=== PATIENT | female | born 1970 | race African-American/Black ===

== ENCOUNTER 2019-01-25 20:57 | Inpatient (IN) | payer BC ==
[~2019-01-25] VITALS: Ht 157.5 cm; Wt 95.3 kg
--- OUTSIDE RECORDS SUMMARY | 2019-01-25 21:00 | XMS REPORT | Clinical Summary ---
Author Author JULIO C [facility] CenterSp[facility] FluidicsOrlando [facility] Address Unknown Phone Unavailable Care Team Providers Care Shuttle Threader Name Role Phone Eyad Hernandez MD PCP Allergies No Known Allergies Medications End Date Status Medication Sig Dispensed Refills Start Date Active amLODIPine (NORVASC) 10 Take 10 mg by 0 MG tablet mouth 2 (two) times daily . Active metoprolol (LOPRESSOR) Take 100 mg 0 100 MG tablet by mouth 2 (two) times daily. Active FOLIC ACID/VIT B COMPLEX Take 1 tablet 0 AND C (RENAL-BUDDY ORAL) by mouth daily . Active cinacalcet (SENSIPAR) 30 Take 30 mg by 0 MG tablet mouth daily. Active colchicine (COLCRYS) 0.6 Take 0.6 mg 0 mg tablet by mouth as needed . Active lanthanum (FOSRENOL) 1000 Take 1,000 mg 0 03/28/ MG chewable tablet by mouth 3 8 (three) times daily with meals . Active aspirin-caffeine (MINOO Take 1 tablet 0 BACK AND BODY) 500-32.5 by mouth as mg TabIndications: Mild needed. Arthritic Pain, Pain 04/11/2018 Discontinued levoFLOXacin (LEVAQUIN) Take 1 tablet 7 tablet 0 500 MG tablet (500 mg 8 total) by mouth daily for 7 days. 04/23/2018 ciprofloxacin HCl (CIPRO) Take 0.5 12 tablet 0 500 MG tablet tablets (250 8 mg total) by mouth 2 (two) times daily for 12 days. Active Problems Problem Noted Date Fever 04/06/2018 Acute renal failure, unspecified acute renal failure type 11/24/2017 Shortness of breath 07/28/2017 Renal insufficiency 07/28/2017 Encounters Care Team Description Date Type Specialty Delmis Lockwood RN 08/08/2018 Documentation Transplant Beba Newell Follow-up 06/08/2018 Telephone Transplant Beba Newell Follow-up 05/08/2018 Telephone Transplant Palak Reeves MD Dave, Deepa Chetan, MD Fever, unspecified fever cause (Primary Dx); ESRD (end stage renal disease) on dialysis (HCC); Leukocytosis, unspecified type; Tachycardia 04/06/2018 [facility] General Internal Medicine - Encounter 04/11/2018 Beba Newell Appointment 03/17/2018 Telephone Transplant Delmis Lockwood RN ESRD (end stage renal disease) (HCC) (Primary Dx); Pre-transplant evaluation for end stage renal disease; Pre-operative cardiovascular examination 03/13/2018 Orders Only Transplant Ya Sparks II, MD 03/08/2018 Outside Orders Central Scheduling Delmis Lockwood RN ESRD (end stage renal disease) (HCC) (Primary Dx); Pre-transplant evaluation for end stage renal disease 01/25/2018 Orders Only Transplant Ya Sparks II, MD ESRD (end stage renal disease) (HCC); Pre-transplant evaluation for end stage renal disease; Essential hypertension, malignant; Anemia of chronic renal failure, unspecified CKD stage; Abnormal blood chemistry; Pre-operative cardiovascular examination; Atherosclerosis of [place] coronary artery of [place] heart without angina pectoris; Impending cerebrovascular accident (HCC) 01/24/2018 Hospital Radiology Encounter Ya Sparks II, MD ESRD (end stage renal disease) (HCC); Pre-transplant evaluation for end stage renal disease; Essential hypertension, malignant; Anemia of chronic renal failure, unspecified CKD stage; Abnormal blood chemistry; Pre-operative cardiovascular examination; Atherosclerosis of [place] coronary artery of [place] heart without angina pectoris; Impending cerebrovascular accident (HCC) 01/24/2018 Hospital Cardiology Encounter Ya Sparks II, MD Finch, Jennifer L., MD Pre-transplant evaluation for end stage renal disease (Primary Dx) 01/24/2018 Evaluation Transplant Ya Sparks II, MD ESRD (end stage renal disease) (HCC); Pre-transplant evaluation for end stage renal disease; Essential hypertension, malignant; Anemia of chronic renal failure, unspecified CKD stage; Abnormal blood chemistry; Pre-operative cardiovascular examination; Atherosclerosis of [place] coronary artery of [place] heart without angina pectoris; Impending cerebrovascular accident (HCC) 01/24/2018 Orders Only Transplant Hepatology Ya Sparks II, MD Vado, Yubelka, RN ESRD (end stage renal disease) (HCC) (Primary Dx); Pre-transplant evaluation for end stage renal disease; Essential hypertension, malignant; Anemia of chronic renal failure, unspecified CKD stage; Abnormal blood chemistry; Pre-operative cardiovascular examination; Atherosclerosis of [place] coronary artery of [place] heart without angina pectoris; Impending cerebrovascular accident (HCC) 01/24/2018 Office Visit Transplant Jonny Cid RN ESRD (end stage renal disease) (HCC) (Primary Dx) 01/24/2018 Orders Only Transplant 01/24/2018 Orders Only General Internal Medicine after 01/24/2018 Family History Medical History Relation Name Comments No Known Problem Father Diabetes Mother Unremarkable Sister Relation Name Status Comments Father Alive Mother Alive Sister Alive Social History Date Tobacco Use Types Packs/Day Years Used Never Smoker Smokeless Tobacco: Never Used Alcohol Use Drinks/Week oz/Week Comments Yes 1 Glasses of 0.6 Occasionally wine Sex Assigned at Date Recorded Not on file Industry Job Start Date Occupation Not on file Not on file Not on file Travel End Travel History Travel Start No recent travel history available. Last Filed Vital Signs Time Taken Vital Sign Reading 04/11/2018 12:00 PM CDT Blood Pressure 138/73 04/11/2018 12:00 PM CDT Pulse 86 04/11/2018 12:00 PM CDT Temperature 37.4 C (99.4 F) 04/11/2018 12:00 PM CDT Respiratory Rate 18 04/11/2018 12:00 PM CDT Oxygen Saturation 95% - Inhaled Oxygen - Concentration 04/06/2018 3:51 PM CDT Weight 79.8 kg (176 lb) 04/06/2018 7:40 PM CDT Height 158.8 cm (5' 2.5") 04/06/2018 3:51 PM CDT Body Mass Index 31.68 Plan of Treatment Not on file Procedures Comments Procedure Name Priority Date/Time Associated Diagnosis CARDIAC CATH REPORT - 04/12/2018 SCAN 1:22 PM CDT CATHETER TIP CULTURE Routine 04/10/2018 2:21 PM CDT IR TUNNELED CATHETER Routine 04/10/2018 REMOVAL 2:05 PM CDT HEPATITIS B SURFACE Routine 04/10/2018 ANTIBODY 8:43 AM CDT HEMODIALYSIS INPATIENT Routine 04/09/2018 8:04 AM CDT BLOOD CULTURE Routine 04/08/2018 12:18 PM CDT (MANUAL DIFFERENTIAL) Routine 04/08/2018 10:13 AM CDT CBC W/PLT COUNT & AUTO Routine 04/08/2018 DIFFERENTIAL 10:13 AM CDT BASIC METABOLIC PANEL (7) Routine 04/08/2018 10:13 AM CDT CBC W/PLT COUNT & AUTO Routine 04/08/2018 DIFFERENTIAL 10:13 AM CDT BLOOD CULTURE Routine 04/08/2018 9:07 AM CDT HEMODIALYSIS INPATIENT DONAVAN 04/08/2018 7:24 AM CDT HEPATITIS B SURFACE Routine 04/07/2018 ANTIGEN 3:40 PM CDT HEMODIALYSIS INPATIENT DONAVAN 04/07/2018 7:13 AM CDT CBC W/PLT COUNT & AUTO STAT 04/07/2018 DIFFERENTIAL 3:56 AM CDT CBC W/PLT COUNT & AUTO STAT 04/07/2018 DIFFERENTIAL 3:56 AM CDT LIPID PANEL STAT 04/07/2018 3:56 AM CDT HEMOGLOBIN A1C STAT 04/07/2018 3:56 AM CDT BASIC METABOLIC PANEL (7) STAT 04/07/2018 3:56 AM CDT CRITICAL CARE Routine 04/06/2018 7:19 PM CDT BLOOD CULTURE STAT 04/06/2018 4:36 PM CDT XR CHEST 1 VIEW STAT 04/06/2018 PORTABLE/BEDSIDE 4:23 PM CDT PROTHROMBIN TIME/INR STAT 04/06/2018 4:11 PM CDT URINALYSIS W/ MICROSCOPIC STAT 04/06/2018 4:11 PM CDT BLOOD CULTURE STAT 04/06/2018 4:11 PM CDT CBC W/PLT COUNT & AUTO STAT 04/06/2018 DIFFERENTIAL 4:10 PM CDT PHOSPHORUS STAT 04/06/2018 4:10 PM CDT MAGNESIUM STAT 04/06/2018 4:10 PM CDT LIPASE STAT 04/06/2018 4:10 PM CDT CBC W/PLT COUNT & AUTO STAT 04/06/2018 DIFFERENTIAL 4:10 PM CDT COMPREHENSIVE METABOLIC STAT 04/06/2018 PANEL 4:10 PM CDT LACTIC ACID, VENOUS STAT 04/06/2018 4:10 PM CDT TRANSFUSION SERVICE 01/25/2018 REPORT - SCAN 5:44 PM CDT XR CHEST 2 VIEWS Routine 01/24/2018 ESRD (end stage renal 12:20 PM CDT disease) ([facility]) ECG 12-LEAD Routine 01/24/2018 11:35 AM CDT Procedure Note - Interface, External Ris In - 01/24/2018 11:39 AM CDT Ventricula r Rate 71 BPM Atrial Rate 71 BPM P-R Interval 142 ms QRS Duration 80 ms Q-T Interval 446 ms QTC Calculatio n(Bazett) 484 ms P [place] 52 degrees R [place] 56 degrees T [place] 62 degrees Normal sinus rhythm Prolonged QT Abnormal ECG No previous ECGs available ECG 12-LEAD Routine 01/24/2018 ESRD (end stage renal 11:35 AM CDT disease) ([facility]) Pre-transplant evaluation for end stage renal disease Essential hypertension, malignant Anemia of chronic renal failure, unspecified CKD stage Abnormal blood chemistry Pre-operative cardiovascular examination Atherosclerosis of [place] coronary artery of [place] heart without angina pectoris Impending cerebrovascular accident (HCC) TYPE AND SCREEN, Routine 01/24/2018 ESRD (end stage renal AUTOMATED 10:20 AM CDT disease) (HCC) Pre-transplant evaluation for end stage renal disease Essential hypertension, malignant Anemia of chronic renal failure, unspecified CKD stage Abnormal blood chemistry Pre-operative cardiovascular examination Atherosclerosis of [place] coronary artery of [place] heart without angina pectoris Impending cerebrovascular accident (HCC) after 01/24/2018 Results * CARDIAC CATH REPORT - SCAN (04/12/2018 1:22 PM CDT) Narrative Performed At * Catheter Tip Culture (04/10/2018 2:21 PM CDT) Result [facility] (A) [facility] Specimen Other Antibiotic Method Susceptibility Organism Cefepime <=1: Susceptible Pseudomonas aeruginosa Gentamicin <=1: Susceptible Pseudomonas aeruginosa Levofloxacin 0.5: Susceptible Pseudomonas aeruginosa Meropenem 0.5: Susceptible Pseudomonas aeruginosa Piperacillin + Tazobactam <=4: Susceptible Pseudomonas aeruginosa Tobramycin <=1: Susceptible Pseudomonas aeruginosa Performing Organization Address City/State/Zipcode Phone Number [facility] [address] [place], [place] [phone] * IR Tunneled Catheter Removal (04/10/2018 2:05 PM CDT) Specimen Narrative Performed At FINAL REPORT RIS History: End-stage renal disease, possibly infected catheter Procedure: Following informed written consent, the patient's existing tunnel dialysis catheter and surrounding skin site were prepped and draped in the usual sterile manner. 2% lidocaine was given locally for anesthesia. No conscious sedation was administered.The catheter cuff was bluntly dissected from the subcutaneous tunnel and the catheter was removed without complications. The tip was sent for culture. Impression: 1. Successful uncomplicated removal of the patient's tunneled right-sided dialysis catheter. Signed: Herman Sen MD Report Verified Date/Time:04/10/2018 15:28:49 Reading Location: [facility] Radiology Reading Room Procedure Note Interface, External Ris In - 04/10/2018 3:31 PM CDT FINAL REPORT History: End-stage renal disease, possibly infected catheter Procedure: Following informed written consent, the patient's existing tunnel dialysis catheter and surrounding skin site were prepped and draped in the usual sterile manner. 2% lidocaine was given locally for anesthesia. No conscious sedation was administered.The catheter cuff was bluntly dissected from the subcutaneous tunnel and the catheter was removed without complications. The tip was sent for culture. Impression: 1. Successful uncomplicated removal of the patient's tunneled right-sided dialysis catheter. Signed: Herman Sen MD Report Verified Date/Time: 04/10/2018 15:28:49 Reading Location: [facility] Radiology Reading Room Performing Organization Address City/State/Zipcode Phone Number [facility] * Hepatitis B surface antibody (04/10/2018 8:43 AM CDT) Hep B S Ab <8.0 <8.0 mIU/mL [facility] Specimen Blood Performing Organization Address City/[facility]/Zipcode Phone Number [place] [phone] [place] [address] [phone] [place] [address] * Blood culture (04/08/2018 12:18 PM CDT) Only the most recent of 4 results within the time period is included. Result No growth in 5 days [facility] Specimen Blood Performing Organization Address City/[facility]/Zipcode Phone Number [facility] [address] [place], [place] [address] * Manual Differential (04/08/2018 10:13 AM CDT) % Neutros (manual) 83 % [facility] % Lymphs (manual) 10 % [facility] % Monos (manual) 6 % [facility] % Eos (manual) 1 % [facility] # Neutros (manual) 7.64 1.80 - 8.00 K/L [facility] # Lymphs (manual) 0.92 (L) 1.48 - 4.50 K/L [facility] # Monos (manual) 0.55 0.00 - 1.30 K/L [facility] # Eos (manual) 0.09 0.00 - 0.50 K/L [facility] Total Counted 100 [facility] Vacuolated Neutrophils Present [facility] Large Platelet Present [facility] Anisocytosis 1+ few [facility] Specimen Blood Performing Organization Address City/[facility]/Zipcode Phone Number [facility] [address] [place], [place] [phone] * CBC with platelet count + automated diff (04/08/2018 10:13 AM CDT) Only the most recent of 3 results within the time period is included. WBC 9.2 4.0 - 10.0 K/L [facility] RBC 3.33 (L) 4.00 - 5.00 M/L [facility] Hemoglobin 9.5 (L) 12.0 - 15.0 GM/DL [facility] Hematocrit 28.5 (L) 36.0 - 45.0 % [facility] MCV 85.6 82.0 - 99.0 fL [facility] MCH 28.4 27.0 - 33.0 pg [facility] MCHC 33.1 32.0 - 36.0 GM/DL [facility] RDW 18.6 (H) 10.3 - 14.2 % [facility] Platelets 191 150 - 430 K/CU MM [facility] MPV 9.2 6.5 - 10.5 fL [facility] nRBC 0 0 - 0 /100 WBC [facility] Specimen Blood Performing Organization Address City/[facility]/Zipcode Phone Number [facility] [address] [place], [place] [phone] * Basic Metabolic Panel (04/08/2018 10:13 AM CDT) Only the most recent of 2 results within the time period is included. Sodium 134 (L) 135 - 148 meq/L [facility] Potassium 4.6 3.6 - 5.5 meq/L [facility] Chloride 97 (L) 98 - 106 meq/L [facility] CO2 22 20 - 29 meq/L [facility] BUN 39 (H) 10 - 26 mg/dL [facility] Creatinine 8.47 (H) 0.50 - 1.20 mg/dL [facility] Glucose 82 70 - 110 mg/dL [facility] Calcium 8.9 8.5 - 10.5 mg/dL [facility] EGFR 6Comment: ESTIMATED GFR IS NOT mL/min/1.73 sq m [facility] CLEARANCE IN PREDICTING GLOMERULAR FILTRATION RATE. ESTIMATED GFR IS NOT APPLICABLE FOR DIALYSIS PATIENTS. Specimen Blood Performing Organization Address [facility] Hospital[facility] Phone Number [facility] [address] [place] [phone] * Hepatitis B surface antigen (04/07/2018 3:40 PM CDT) hepatitis B Surface Ag NON-REACTIVE Nonreactive [facility] Specimen Blood Performing Organization Address [facility] Phone Number [facility] [address] [place] [phone] * Hemoglobin A1c (04/07/2018 3:56 AM CDT) Hemoglobin A1C 5.2 4.3 - 6.1 % [facility] Specimen Blood Performing Organization Address [facility] Phone Number [facility] [address] [place] [phone] * Lipid panel (04/07/2018 3:56 AM CDT) Triglycerides 124 mg/dL [facility] Cholesterol 163 mg/dL [facility] HDL 40 mg/dL [facility] LDL Calculated 98 mg/dL [facility] Specimen Blood Narrative Performed At Triglyceride Reference Range: [facility] [place] Low Risk <150 [facility] [id number] High Risk 200-499 Very High Risk>=500 Cholesterol Reference Range: Low Risk <200 [id number] High Risk>240 HDL Cholesterol Reference Range: Low Risk >=60 High Risk <40 LDL Cholesterol Reference Range: Optimal<100 Near [id number] Very High >=190 Performing Organization Address [facility] Phone Number [facility] [address] [place] [address] * CRITICAL CARE (04/06/2018 7:19 PM CDT) Narrative Performed At Palak Reeves MD 04/06/20187:19 PM Critical Care Performed by: PALAK REEVES Authorized by: PALAK REEVES Total critical care time: 30 minutes Critical care was necessary to treat or prevent imminent or life-threatening deterioration of the following conditions: sepsis. Critical care was time spent personally by me on the following activities: blood draw for specimens, development of treatment plan with patient or surrogate, discussions with consultants, discussions with primary provider, interpretation of cardiac output measurements, evaluation of patient's response to treatment, examination of patient, obtaining history from patient or surrogate, ordering and performing treatments and interventions, ordering and review of laboratory studies, ordering and review of radiographic studies and re-evaluation of patient's condition. Subsequent provider of critical care: I assumed direction of critical care for this patient from another provider of my specialty. * XR chest 1 view portable / bedside (04/06/2018 4:23 PM CDT) Specimen Narrative Performed At FINAL REPORT [facility] TECHNIQUE: Frontal chest radiograph dated 04/06/2018. CLINICAL HISTORY: Back pain , fever COMPARISON STUDY: Chest radiograph dated 01/24/2018 IMPRESSION: Right-sided vascular line is unchanged. Lungs are clear. No pleural effusion or pneumothorax. Cardiomediastinal silhouette is normal in size. No pulmonary edema. No fracture. Signed: Silvana Sanchez MD Report Verified Date/Time:04/06/2018 16:31:49 Reading Location: [facility] Radiology Reading Room Procedure Note Interface, External Ris In - 04/06/2018 4:34 PM CDT FINAL REPORT TECHNIQUE: Frontal chest radiograph dated 04/06/2018. CLINICAL HISTORY: Back pain , fever COMPARISON STUDY: Chest radiograph dated 01/24/2018 IMPRESSION: Right-sided vascular line is unchanged. Lungs are clear. No pleural effusion or pneumothorax. Cardiomediastinal silhouette is normal in size. No pulmonary edema. No fracture. Signed: Silvana Sanchez MD Report Verified Date/Time: 04/06/2018 16:31:49 Reading Location: [facility] Radiology Reading Room Performing Organization Address City/State/Zipcode Phone Number [email or web address] * Urinalysis w/Microscopic (04/06/2018 4:11 PM CDT) Color, UA Yellow [facility] Clarity, UA Clear [facility] Specific Shelley, UA 1.015 1.001 - 1.035 [facility] pH, UA 8.0 5.0 - 8.0 [facility] Protein, UA 100 mg/dL (A) Negative [facility] Glucose, UA 100 mg/dL (A) Negative [facility] Ketones, UA Negative Negative [facility] Bilirubin, UA Negative Negative [facility] Blood, UA Small (A) Negative [facility] Nitrite, UA Negative Negative [facility] Leukocytes, UA Negative Negative [facility] Urobilinogen, UA 0.2 0.2 - 1.0 mg/dL [facility] Bacteria, UA Few [facility] RBC, UA <5 /HPF [facility] WBC, UA <5 /HPF [facility] SQUAMOUS EPITHELIAL <5 /HPF [facility] Specimen Source [facility] Specimen Urine Performing Organization Address [facility] Phone Number [facility] [address] [place], [place] [phone] * Prothrombin time/INR (04/06/2018 4:11 PM CDT) Protime 11.4 9.3 - 12.0 sec [facility] INR 1.1 <=5.9 [facility] Specimen Blood Narrative Performed At RECOMMENDED COUMADIN/WARFARIN INR THERAPY RANGES [facility] STANDARD DOSE: 2.0 - 3.0 Includes: PROPHYLAXIS for venous thrombosis, LABORATORY systemic embolization; TREATMENT for venous thrombosis and/or pulmonary embolus. HIGH RISK: Target INR is 2.5-3.5 for patients with mechanical heart valves. Final Information (Auto Output) Final Information (Auto Output) Performing Organization Address [facility] Phone Number [address] [address] * Lactic acid, venous, whole blood (04/06/2018 4:10 PM CDT) Lactate, Venous 1.2Comment: Specimen slightly 0.5 - 2.2 mmol/L [facility] Specimen Blood Narrative Performed At Effective 01/28/2016: Units/Reference Range Change [facility] New: 0.5-2.2 mmol/LPrevious: 5-18 mg/dL LABORATORY Performing Organization Address [facility] Phone Number [facility] [address] [place], [place] [address] * Phosphorus (04/06/2018 4:10 PM CDT) Phosphorus 3.9Comment: Specimen slightly 2.5 - 4.5 mg/dL [facility] Specimen Blood Performing Organization Address [facility] Phone Number [facility] [address] [place], [place] [phone] * Magnesium (04/06/2018 4:10 PM CDT) Magnesium 2.1Comment: Specimen slightly 1.5 - 3.0 mg/dL [facility] Specimen Blood Performing Organization Address City/[facility]/Zipcode Phone Number [facility] [address] [place] [phone] * Lipase (04/06/2018 4:10 PM CDT) Lipase 15 6 - 51 U/L [facility] Specimen Blood Performing Organization Address City/[facility] Phone Number [facility] [address] [place] [phone] * Comprehensive metabolic panel (04/06/2018 4:10 PM CDT) Protein, Total 9.3 (H)Comment: Specimen 6.0 - 8.5 gm/dL [facility] Albumin 3.9Comment: Specimen slightly 3.5 - 5.0 g/dL [facility] Alkaline Phosphatase 58 30 - 115 U/L [facility] Total Bilirubin 0.3Comment: Specimen slightly 0.1 - 1.2 mg/dL [facility] Sodium 132 (L) 135 - 148 meq/L [facility] Potassium 5.4Comment: Specimen slightly 3.6 - 5.5 meq/L [facility] Chloride 92 (L) 98 - 106 meq/L [facility] CO2 21 20 - 29 meq/L [facility] BUN 35 (H) 10 - 26 mg/dL [facility] Creatinine 9.03 (H)Comment: Specimen 0.50 - 1.20 mg/dL [facility] Glucose 95 70 - 110 mg/dL [facility] Calcium 9.0 8.5 - 10.5 mg/dL [facility] AST 24Comment: Specimen slightly 5 - 40 U/L [facility] ALT 20Comment: Specimen slightly 5 - 50 U/L [facility] EGFR 6Comment: ESTIMATED GFR IS NOT mL/min/1.73 sq m [facility]ATIN[facility] CLEARANCE IN PREDICTING GLOMERULAR FILTRATION RATE. ESTIMATED GFR IS NOT APPLICABLE FOR DIALYSIS PATIENTS. Specimen Blood Performing Organization Address City/State/Zipcode Phone Number [facility] [address] [place] [address] * TRANSFUSION SERVICE REPORT - SCAN (01/25/2018 5:44 PM CDT) Narrative Performed At * XR chest 2 views (01/24/2018 12:20 PM CDT) Specimen Narrative Performed At FINAL REPORT [facility] Two views chest Discussion: Right dialysis catheter in place lower SVC level. Lungs clear. Heart size normal. No effusion or pneumothorax. Signed: Dai Donald MD Report Verified Date/Time:01/24/2018 12:57:23 Reading Location: [facility] Radiology Reading Room Procedure Note Interface, External Ris In - 01/24/2018 12:59 PM CDT FINAL REPORT Two views chest Discussion: Right dialysis catheter in place lower SVC level. Lungs clear. Heart size normal. No effusion or pneumothorax. Signed: Dai Donald MD Report Verified Date/Time: 01/24/2018 12:57:23 Reading Location: [facility] Radiology Reading Room Performing Organization Address City/[facility] [facility] Number [facility] * ECG 12 lead (01/24/2018 11:35 AM CDT) Specimen Narrative Performed At Ventricular Rate 71 BPM GE MUSE Atrial Rate 71 BPM P-R Interval 142 ms QRS Duration 80 ms Q-T Interval 446 ms QTC Calculation(Bazett) 484 ms P [place] 52 degrees R [place] 56 degrees T [place] 62 degrees Normal sinus rhythm Prolonged QT Abnormal ECG No previous ECGs available Confirmed by MD Jennifer, Jimmy ([id number]) on 01/24/2018 2:40:19 PM Procedure Note Interface, External Ris In - 01/24/2018 2:40 PM CDT Ventricular Rate 71 BPM Atrial Rate 71 BPM P-R Interval 142 ms QRS Duration 80 ms Q-T Interval 446 ms QTC Calculation(Bazett) 484 ms P [place] 52 degrees R [place] 56 degrees T [place] 62 degrees Normal sinus rhythm Prolonged QT Abnormal ECG No previous ECGs available Confirmed by MD Rodriguez Roberto ([id number]) on 01/24/2018 2:40:19 PM Performing Organization Address City/State/Zipcode Phone Number GE LASHELL * Type and Screen, Automated (01/24/2018 10:20 AM CDT) ABO/RH AUTOMATED (BEAKER) O POSITIVE [facility] Ab Scrn NEGATIVE [facility] Specimen Blood Performing Organization Address City/State/Zipcode Phone Number [facility] [address] [place] [address] MEDICAL CENTER after 01/24/2018 Insurance Payer Benefit Subscriber ID Type Phone Address Plan / Group BLUE [employer]UE [employer] BCBS OS xxxxxxxxxxxxxxx PPO [phone] [address] [place]/PP[place] [address] O Advance Directives For more information, please contact: [facility] [address] [place] [address] Date Inactivated Comments Code Status Date Activated 04/11/2018 4:21 PM Full Code 04/06/2018 7:53 PM This code status was determined by: Patient 04/06/2018 7:53 PM Full Code 04/06/2018 4:07 PM This code status was determined by: Patient 11/30/2017 3:55 PM Full Code 11/24/2017 4:24 PM This code status was determined by: Patient 07/31/2017 9:37 PM Full Code 07/28/2017 9:41 PM This code status was determined by: Patient
--- OUTSIDE RECORDS SUMMARY | 2019-01-25 21:00 | XMS REPORT | Summary of Care ---
Author Author [facility] Organization [facility] Address Unknown Phone Unavailable Encounter ELISE Marquez(TOMMY) [id number] Date(s): 12/27/17 - 12/27/17 [facility] [address] [place] [address]- Encounter Diagnosis Hypertensive chronic kidney disease with stage 5 chronic kidney disease or end s tage renal disease (Final) - 01/03/18 End stage renal disease (Final) - Anemia in chronic kidney disease (Final) - Supraventricular tachycardia (Final) - Dependence on renal dialysis (Final) - Hyperlipidemia, unspecified (Final) - Discharge Disposition: Home or Self Care Attending Physician: Josemanuel Long MD Referring Physician: Josemanuel Long MD Vital Signs 1 2 3 Most recent to oldest [Reference Range]: 160.02 cm (12/26/17 9:18 AM) Height 97.8 DegF (12/27/17 7:00 AM) Temperature Oral [96.4-99.1 DegF] 120/78 mmHg (12/27/17 1:00 PM) 104/67 mmHg (12/27/17 12:45 PM) 119/73 mmHg (12/27/17 12:30 PM) Blood Pressure [90-140/60-90 mmHg] 14 BRMIN (12/27/17 1:00 PM) 16 BRMIN (12/27/17 12:45 PM) 14 BRMIN (12/27/17 12:30 PM) Respiratory Rate [14-20 BRMIN] 77.727 kg (12/26/17 9:18 AM) Weight 30.35 m2 (12/26/17 9:18 AM) Body Mass Index Problem List No data available for this section Allergies, Adverse Reactions, Alerts Substance Reaction Severity Status NKFA Active NKDA Active Medications acetaminophen-codeine #3 2 tab, Route: PO, Drug Form: TAB, Dosing Weight 77.727, kg, Q4H, PRN Pain Score 4-6, Start date: 12/27/17 8:22:00 CDT, Duration: 30 day, Stop date: 01/26/18 8:2 1:00 CDT Notes: Do not exceed 4gm/day of acetaminophen. (Same as: Tylenol with Codeine # 3) Start Date: 12/27/17 Stop Date: 12/27/17 Status: Discontinued amLODIPine 10 mg oral tablet 10 mg=1 tab, PO, BID Start Date: 12/26/17 Status: Ordered ANES acetaminophen 1,000 mg, 100 mL, Route: IV, Drug form: INJ, ONCE, Dosing Weight 77.727, kg, PRN Pain Score 1-3, Start date: 12/27/17 9:50:00 CDT Notes: Infuse over 15 minutesDo not exceed 4gm/day of acetaminophen MEDICAT ION WASTE Product Size: 1000 mgProduct Wasted: ___ mg Start Date: 12/27/17 Stop Date: 12/27/17 Status: Completed ANES dexamethasone 4 mg, 1 mL, Route: IVP, Drug form: INJ, ONCE, Dosing Weight 77.727, kg, PRN Naus ea & Vomiting, Start date: 12/27/17 9:50:00 CDT Notes: Concentration: 4mg/ml Start Date: 12/27/17 Stop Date: 12/27/17 Status: Discontinued ANES fentaNYL 25 microgram, 0.5 mL, Route: IVP, Drug form: INJ, Q5Min, Dosing Weight 77.727, k g, PRN Pain Score 4-6, Priority: Routine, Start date: 12/27/17 9:50:00 CDT, Dura tion: 4 doses or times, Stop date: Limited # of times Notes: (Same as: Sublimaze) Preservative free. Start Date: 12/27/17 Stop Date: 12/27/17 Status: Discontinued ANES fentaNYL 50 microgram, 1 mL, Route: IVP, Drug form: INJ, Q5Min, Dosing Weight 77.727, kg, PRN Pain Score 7-10, Priority: Routine, Start date: 12/27/17 9:50:00 CDT, Durat ion: 2 doses or times, Stop date: Limited # of times Notes: (Same as: Sublimaze) Preservative free. Start Date: 12/27/17 Stop Date: 12/27/17 Status: Discontinued ANES flumazenil 0.2 mg, 2 mL, Route: IVP, Drug form: INJ, PRN, Dosing Weight 77.727, kg, PRN Sumit zodiazepine Reversal, Initial dose, Start date: 12/27/17 9:50:00 CDT, Duration: 30 day, Stop date: 01/26/18 9:49:00 CDT Notes: (Same as: Romazicon) Start Date: 12/27/17 Stop Date: 12/27/17 Status: Discontinued ANES hydrALAZINE 10 mg, 0.5 mL, Route: IVP, Drug form: INJ, Q20Min, Dosing Weight 77.727, kg, PRN Elevated BP, Start date: 12/27/17 9:50:00 CDT, Duration: 2 doses or times, Stop date: Limited # of times Notes: (Same as: Apresoline)Push over 5 minutes Start Date: 12/27/17 Stop Date: 12/27/17 Status: Discontinued ANES labetalol 10 mg, 2 mL, Route: IVP, Drug form: INJ, Q5Min, Dosing Weight 77.727, kg, PRN El evated BP, Start date: 12/27/17 9:50:00 CDT, Duration: 5 doses or times, Stop da te: Limited # of times Start Date: 12/27/17 Stop Date: 12/27/17 Status: Discontinued ANES naloxone 0.4 mg, 1 mL, Route: IVP, Drug form: INJ, Q2MIN, Dosing Weight 77.727, kg, PRN N arcotic Reversal, Start date: 12/27/17 9:50:00 CDT, Duration: 8 doses or times, Stop date: Limited # of times Notes: Same as Narcan Start Date: 12/27/17 Stop Date: 12/27/17 Status: Discontinued ANES ondansetron 4 mg, 2 mL, Route: IVP, Drug form: INJ, ONCE, Dosing Weight 77.727, kg, PRN Naus ea & Vomiting, Start date: 12/27/17 9:50:00 CDT Notes: (Same as: Frank) MEDICATION WASTE Product Size: 4 mgProduct Was clover: ___ mg Start Date: 12/27/17 Stop Date: 12/27/17 Status: Discontinued colchicine 0.6 mg oral tablet 0.6 mg=1 tab, PO, Daily, PRN gout flare ups Start Date: 12/26/17 Status: Ordered dexamethasone (ANES) Route: IV, Drug form: INJ, ONCE, Stop date: 12/27/17 10:24:00 CDT Start Date: 12/27/17 Stop Date: 12/27/17 Status: Completed fentaNYL (ANES) Route: IV, Drug form: INJ, ONCE, Stop date: 12/27/17 10:24:00 CDT Start Date: 12/27/17 Stop Date: 12/27/17 Status: Completed metoprolol tartrate 100 mg oral tablet 100 mg=1 tab, PO, BID, 0 Refill(s) Start Date: 12/26/17 Status: Ordered midazolam (ANES) Route: IV, Drug form: SOLN, ONCE, Stop date: 12/27/17 10:24:00 CDT Start Date: 12/27/17 Stop Date: 12/27/17 Status: Completed ondansetron (ANES) Route: IV, Drug form: INJ, ONCE, Stop date: 12/27/17 10:49:00 CDT Start Date: 12/27/17 Stop Date: 12/27/17 Status: Completed phenylephrine (ANES) Route: IV, Drug form: INJ, ONCE, Stop date: 12/27/17 10:49:00 CDT Start Date: 12/27/17 Stop Date: 12/27/17 Status: Completed propofol (ANES) Route: IV, Drug form: INJ, ONCE, Stop date: 12/27/17 10:24:00 CDT Start Date: 12/27/17 Stop Date: 12/27/17 Status: Completed RenaPlex oral tablet 1 tab, PO, Daily Start Date: 12/26/17 Status: Ordered Sodium Chloride 0.9% IV (ANES) 500 mL Route: IV, Total Volume: 500, Start date: 12/27/17 9:41:00 CDT, Stop date: 12/27 10:41:00 CDT Start Date: 12/27/17 Stop Date: 12/27/17 Status: Completed vancomycin (ANES) 1000 mg Route: IV, Drug form: INJ, Start date: 12/27/17 9:48:00 CDT, Stop date: 12/27/17 10:48:00 CDT Start Date: 12/27/17 Stop Date: 12/27/17 Status: Completed vancomycin + Sodium Chloride 0.9% IV 250 mL 1,000 mg, Route: IVPB, PRE OP, Dosing Weight 77.727, kg, Start date: 12/27/17 7: 00:00 CDT, Duration: 1 doses or times, ABX Indication: Surgical Prophylaxis Notes: TIME CRITICAL MEDICATION(Same As: Vancocin)Infusion rate< 1000 mg: infuse over 1 [id number] - 1500 mg: infuse over 1.5 [id number] - 2000 mg: infuse over 2 hours> 2001 mg: infuse over 2.5 hoursFor adult patients only: Round to nearest 250 mg per Medical Staff approval MEDICATION WASTE Product Size: 1000 mgProduct Wasted: ___ mg Start Date: 12/27/17 Stop Date: 12/27/17 Status: Discontinued vancomycin + Sodium Chloride 0.9% IV 250 mL 1 gm, Route: IV, PRE OP, Dosing Weight 77.727, kg, Start date: 12/27/17 7:00:00 CDT, Duration: 1 doses or times, ABX Indication: Surgical Prophylaxis Notes: TIME CRITICAL MEDICATION(Same As: Vancocin)Infusion rate< 1000 mg: infuse over 1 [id number] - 1500 mg: infuse over 1.5 [id number] - 2000 mg: infuse over 2 hours> 2001 mg: infuse over 2.5 hoursFor adult patients only: Round to nearest 250 mg per Medical Staff approval MEDICATION WASTE Product Size: 1000 mgProduct Wasted: ___ mg Start Date: 12/27/17 Stop Date: 12/27/17 Status: Discontinued Results ELECTROLYTES Most recent to 1 2 oldest [Reference Range]: Sodium Lvl [135-145 137 mEq/L mEq/L] (12/27/17 6:48 AM) Potassium Lvl 3.8 mEq/L [3.5-5.1 mEq/L] (12/27/17 6:48 AM) Chloride Lvl [95-109 99 mEq/L mEq/L] (12/27/17 6:48 AM) CO2 [24-32 mEq/L] 28 mEq/L (12/27/17 6:48 AM) AGAP [10.0-20.0 13.8 mEq/L mEq/L] (12/27/17 6:48 AM) POC Sodium [135-145 137 mEq/L mEq/L] (12/27/17 7:08 AM) POC Potassium 3.9 mEq/L [3.5-5.1 mEq/L] (12/27/17 7:08 AM) POC Chloride [95-109 97 mEq/L mEq/L] (12/27/17 7:08 AM) POC Carbon Dioxide 29 mEq/dL [24-32 mEq/dL] (12/27/17 7:08 AM) POC AGAP [10.0-20.0 16.0 mEq/L mEq/L] (12/27/17 7:08 AM) CHEM PANEL Most recent to 1 2 oldest [Reference Range]: Creatinine Lvl 6.00 mg/dL [0.50-1.40 mg/dL] *HI* (12/27/17 6:48 AM) eGFR 8 mL/min/1.73m2 1 9 mL/min/1.73m2 2 *NA* *NA* (12/27/17 7:08 AM) (12/27/17 6:48 AM) BUN [7-22 mg/dL] 26 mg/dL *HI* (12/27/17 6:48 AM) Glucose Lvl [70-99 92 mg/dL mg/dL] (12/27/17 6:48 AM) POC Creatinine 6.3 mg/dL [0.5-1.4 mg/dL] *HI* (12/27/17 7:08 AM) POC BUN [7-22 mg/dL] 27 mg/dL *HI* (12/27/17 7:08 AM) POC Glucose [70-99 96 mg/dL mg/dL] (12/27/17 7:08 AM) Calcium Lvl 8.3 mg/dL [8.5-10.5 mg/dL] *LOW* (12/27/17 6:48 AM) POC Ion Ca 1.04 mMol/L [1.05-1.25 mMol/L] *LOW* (12/27/17 7:08 AM) 1Result Comment: The eGFR is calculated using the CKD-EPI formula. In most young, healthy individuals the eGFR will be >90 mL/min/1.73m2. The eGFR declines with age. An eGFR of 60-89 may be normal in some populations, particularly the elderly, for whom the CKD-EPI formula has not been extensively validated. Use of the eGFR is not recommended in the following populations: Individuals with unstable creatinine concentrations, including patients and those with serious co-morbid conditions. Patients with extremes in muscle mass or diet. The data above are obtained from the National Kidney Disease Education Program ( NKDEP) which additionally recommends that when the eGFR is used in patients with extremes of body mass index for purposes of drug dosing, the eGFR should be mul tiplied by the estimated BMI. 2Result Comment: The eGFR is calculated using the CKD-EPI formula. In most young, healthy individuals the eGFR will be >90 mL/min/1.73m2. The eGFR declines with age. An eGFR of 60-89 may be normal in some populations, particularly the elderly, for whom the CKD-EPI formula has not been extensively validated. Use of the eGFR is not recommended in the following populations: Individuals with unstable creatinine concentrations, including patients and those with serious co-morbid conditions. Patients with extremes in muscle mass or diet. The data above are obtained from the National Kidney Disease Education Program ( NKDEP) which additionally recommends that when the eGFR is used in patients with extremes of body mass index for purposes of drug dosing, the eGFR should be mul tiplied by the estimated BMI. URINE CHEM Most recent to 1 2 oldest [Reference Range]: U Preg [Negative] Negative (12/27/17 6:48 AM) HEMATOLOGY Most recent to 1 2 oldest [Reference Range]: WBC [3.7-10.4 K/CMM] 7.7 K/CMM (12/27/17 6:48 AM) RBC [4.20-5.40 3.69 M/CMM M/CMM] *LOW* (12/27/17 6:48 AM) Hgb [12.0-16.0 g/dL] 10.5 g/dL *LOW* (12/27/17 6:48 AM) Hct [36.0-48.0 %] 32.0 % *LOW* (12/27/17 6:48 AM) MCV [80.0-98.0 fL] 86.7 fL (12/27/17 6:48 AM) MCH [27.0-31.0 pg] 28.5 pg (12/27/17 6:48 AM) MCHC [32.0-36.0 32.9 g/dL g/dL] (12/27/17 6:48 AM) RDW [11.5-14.5 %] 18.1 % *HI* (12/27/17 6:48 AM) MPV [7.4-10.4 fL] 8.6 fL (12/27/17 6:48 AM) Platelet [133-450 186 K/CMM K/CMM] (12/27/17 6:48 AM) POC Hemoglobin 11.6 g/dL [12.0-16.0 g/dL] *LOW* (12/27/17 7:08 AM) POC Hematocrit 34.0 % [36.0-48.0 %] *LOW* (12/27/17 7:08 AM) Segs [45.0-75.0 %] 63.1 % (12/27/17 6:48 AM) Lymphocytes 18.6 % [20.0-40.0 %] *LOW* (12/27/17 6:48 AM) Monocytes [2.0-12.0 13.4 % %] *HI* (12/27/17 6:48 AM) Eosinophils [0.0-4.0 4.1 % %] *HI* (12/27/17 6:48 AM) Basophils [0.0-1.0 0.8 % %] (12/27/17 6:48 AM) Segs-Bands # 4.9 K/CMM [1.5-8.1 K/CMM] (12/27/17 6:48 AM) Lymphocytes # 1.4 K/CMM [1.0-5.5 K/CMM] (12/27/17 6:48 AM) Monocytes # [0.0-0.8 1.0 K/CMM K/CMM] *HI* (12/27/17 6:48 AM) Eosinophils # 0.3 K/CMM [0.0-0.5 K/CMM] (12/27/17 6:48 AM) Basophils # [0.0-0.2 0.1 K/CMM K/CMM] (12/27/17 6:48 AM) PT [12.0-14.7 13.3 seconds seconds] (12/27/17 6:48 AM) INR [0.85-1.17] 1.01 (12/27/17 6:48 AM) PTT [22.9-35.8 80.0 seconds seconds] *HI* (12/27/17 6:48 AM) Immunizations No data available for this section Procedures Procedure Date Related Diagnosis Body Site Status Central line insertion1 11/24/17 Completed Hysteroscopy 2001 Completed 1R IJ Social History Social History Type Response Substance Abuse Use: None. Exercise Exercise duration: 30. Exercise frequency: Daily. Self assessment: Good condition. Exercise type: Walking. Alcohol Current, Type Wine, Liquor. Frequency: 1-2 times per week. Smoking Status Never smoker; Exposure to Tobacco Smoke None; Cigarette Smoking Last 365 Days No; Reg Smoking Cessation Counseling Yes entered on: 12/26/17 Assessment and Plan No data available for this section
--- OUTSIDE RECORDS SUMMARY | 2019-01-25 21:01 | XMS REPORT ---
Author Author [facility] Address Unknown Phone Unavailable Care Team Providers Care [place] Name Role Phone KENYON FRAUSTO Unavailable Unavailable AI AGUSTIN RAMIREZ Unavailable Unavailable NANCY MAYORGA Unavailable Unavailable Problems This patient has no known problems. Allergies, Adverse Reactions, Alerts This patient has no known allergies or adverse reactions. Medications This patient has no known medications. Results Test Description Test Time Test Comments Text Results Atomic Results Result Comments BLOOD CULTURE 2018-04-13 16:01:00 CULTURE (BEAKER) (test dutm=4350) No growth in 5 days BLOOD [id number] 13:00:00* Test Item Value Reference Range Comments CULTURE (BEAKER) (test lvxz=3802) No growth in 5 days BLOOD [id number] 11:14:00* Test Item Value Reference Range Comments CULTURE (BEAKER) (test ijyf=2527) PSEUDOMONAS AERUGINOSA From Aerobic Bottle Only Pseudomonas aeruginosa Amikacin (test code=1) Ampicillin + Sulbactam (test code=6) Cefazolin (test code=9) Cefepime (test code=51) Cefoxitin (test code=68) Ceftazidime (test code=27) Ceftriaxone (test code=52) Gentamicin (test code=18) Levofloxacin (test code=22) Meropenem (test code=34) Nitrofurantoin (test code=23) Piperacillin + Tazobactam (test code=29) Tetracycline (test code=2) Tigecycline (test fmmr=982) Tobramycin (test code=25) Trimethoprim + Sulfamethoxazole (test code=47) GRAM STAIN RESULT (BEAKER) (test kpjf=6681) gram negative rods pedi BLOOD [id number] 10:42:00* Test Item Value Reference Range Comments CULTURE (BEAKER) (test xzbr=8672) PSEUDOMONAS AERUGINOSA From Aerobic Bottle Only Pseudomonas aeruginosa Amikacin (test code=1) Ampicillin + Sulbactam (test code=6) Cefazolin (test code=9) Cefepime (test code=51) Cefoxitin (test code=68) Ceftazidime (test code=27) Ceftriaxone (test code=52) Gentamicin (test code=18) Levofloxacin (test code=22) Meropenem (test code=34) Nitrofurantoin (test code=23) Piperacillin + Tazobactam (test code=29) Tetracycline (test code=2) Tigecycline (test xrfp=052) Tobramycin (test code=25) Trimethoprim + Sulfamethoxazole (test code=47) GRAM STAIN RESULT ([employer] DevicesAKER) (test yhqf=3872) From aerobic bottle only: gram negative rods CATHETER TIP [id number] 08:20:00* Test Item Value Reference Range Comments CULTURE (BEAKER) (test zezk=6205) PSEUDOMONAS AERUGINOSA >15 Colonies On Direct Plate Pseudomonas aeruginosa Amikacin (test code=1) Ampicillin + Sulbactam (test code=6) Cefazolin (test code=9) Cefepime (test code=51) Cefoxitin (test code=68) Ceftazidime (test code=27) Ceftriaxone (test code=52) Gentamicin (test code=18) Levofloxacin (test code=22) Meropenem (test code=34) Nitrofurantoin (test code=23) Piperacillin + Tazobactam (test code=29) Tetracycline (test code=2) Tigecycline (test dhid=275) Tobramycin (test code=25) Trimethoprim + Sulfamethoxazole (test code=47) ANG, REMOVAL OF TUNNELED CVC W/O [id number] 15:28:00Reason for exam:-> possible infected lineFINAL REPORT History: End-stage renal disease, possibly infected [...] tunneled right-sided dialysis catheter. Signed: Herman Sen Verified Date/Time: 04/10/2018 15:28:49 Reading Location: [facility] Radiology Reading Room TITIS B SURFACE [id number] 12:39:00* Test Item Value Reference Range Comments HEPATITIS B SURFACE ANTIBODY (BEAKER) (test tkxx=030) < mIU/mL <8.0 CBC W/PLT COUNT & AUTO [id number] 13:49:00* Test Item Value Reference Range Comments WHITE BLOOD CELL COUNT (BEAKER) (test qrrc=446) 9.2 K/ L 4.0-10.0 RED BLOOD CELL COUNT (BEAKER) (test wlia=505) 3.33 M/ L 4.00-5.00 HEMOGLOBIN (BEAKER) (test udkm=095) 9.5 GM/DL 12.0-15.0 HEMATOCRIT (BEAKER) (test jvwp=224) 28.5 % 36.0-45.0 MEAN CORPUSCULAR VOLUME (BEAKER) (test mjmi=598) 85.6 fL 82.0-99.0 MEAN CORPUSCULAR HEMOGLOBIN (BEAKER) (test wyub=141) 28.4 pg 27.0-33.0 MEAN CORPUSCULAR HEMOGLOBIN CONC (BEAKER) (test mrwe=862) 33.1 GM/DL 32.0-36.0 RED CELL DISTRIBUTION WIDTH (BEAKER) (test xobv=618) 18.6 % 10.3-14.2 PLATELET COUNT (BEAKER) (test gdnd=438) 191 K/CU MM 150-430 MEAN PLATELET VOLUME (BEAKER) (test bxkq=058) 9.2 fL 6.5-10.5 NUCLEATED RED BLOOD CELLS (BEAKER) (test uhuc=638) 0 /100 WBC 0-0 (MANUAL DIFFERENTIAL)2018-04-08 13:49:00* Test Item Value Reference Range Comments NEUTROPHILS - REL (DIFF) (BEAKER) (test gvgc=4462) 83 % LYMPHOCYTES - REL (DIFF) (BEAKER) (test ytjj=6409) 10 % MONOCYTES - REL (DIFF) (BEAKER) (test zree=2445) 6 % EOSINOPHILS - REL (DIFF) (BEAKER) (test jdzw=2124) 1 % NEUTROPHILS - ABS (DIFF) (BEAKER) (test vkkh=6045) 7.64 K/ L 1.80-8.00 LYMPHOCYTES - ABS (DIFF) (BEAKER) (test dyir=1135) 0.92 K/ L 1.48-4.50 MONOCYTES - ABS (DIFF) (BEAKER) (test bnpi=9101) 0.55 K/ L 0.00-1.30 EOSINOPHILS - ABS (DIFF) (BEAKER) (test wfqi=7351) 0.09 K/ L 0.00-0.50 TOTAL COUNTED (BEAKER) (test qlwd=2350) 100 VACUOLATED NEUTROPHILS (BEAKER) (test guwk=435) Present LARGE PLT(BEAKER) (test exdr=6835) Present ANISOCYTOSIS (BEAKER) (test mcyz=012) 1+ few BASIC METABOLIC [id number] 10:51:00* Test Item Value Reference Range Comments SODIUM (BEAKER) (test hnmk=872) 134 meq/L 135-148 POTASSIUM (BEAKER) (test cjgr=229) 4.6 meq/L 3.6-5.5 CHLORIDE (BEAKER) (test wwla=513) 97 meq/L 98-106 CO2 (BEAKER) (test ikcf=626) 22 meq/L 20-29 BLOOD UREA NITROGEN (BEAKER) (test akrz=586) 39 mg/dL 10-26 CREATININE (BEAKER) (test lxom=382) 8.47 mg/dL 0.50-1.20 GLUCOSE RANDOM (BEAKER) (test zcpu=968) 82 mg/dL 70-110 CALCIUM (BEAKER) (test jfac=139) 8.9 mg/dL 8.5-10.5 EGFR (BEAKER) (test gvxv=2389) 6 mL/min/1.73 sq m ESTIMATED GFR IS NOT ACCURATE CREATININE CLEARANCE IN PREDICTING GLOMERULAR FILTRATION RATE. ESTIMATED GFR IS NOT APPLICABLE FOR DIALYSIS PATIENTS. HEPATITIS B SURFACE [id number] 16:16:00* Test Item Value Reference Range Comments HEPATITIS B SURFACE ANTIGEN (2) (BEAKER) (test rooc=9990) Nonreactive Nonreactive HEMOGLOBIN [id number] 06:45:00* Test Item Value Reference Range Comments HEMOGLOBIN A1C (BEAKER) (test kkqq=666) 5.2 % 4.3-6.1 CBC W/PLT COUNT & AUTO [id number] 04:58:00* Test Item Value Reference Range Comments WHITE BLOOD CELL COUNT (BEAKER) (test skur=390) 12.1 K/ L 4.0-10.0 RED BLOOD CELL COUNT (BEAKER) (test arur=096) 3.40 M/ L 4.00-5.00 HEMOGLOBIN (BEAKER) (test dccn=728) 9.5 GM/DL 12.0-15.0 HEMATOCRIT (BEAKER) (test klpa=478) 29.3 % 36.0-45.0 MEAN CORPUSCULAR VOLUME (BEAKER) (test zfhx=030) 86.2 fL 82.0-99.0 MEAN CORPUSCULAR HEMOGLOBIN (BEAKER) (test gict=671) 27.9 pg 27.0-33.0 MEAN CORPUSCULAR HEMOGLOBIN CONC (BEAKER) (test lpvb=163) 32.3 GM/DL 32.0-36.0 RED CELL DISTRIBUTION WIDTH (BEAKER) (test uzyc=039) 19.0 % 10.3-14.2 PLATELET COUNT (BEAKER) (test bovn=558) 173 K/CU MM 150-430 MEAN PLATELET VOLUME (BEAKER) (test kmxb=627) 8.4 fL 6.5-10.5 NUCLEATED RED BLOOD CELLS (BEAKER) (test jhzs=115) 0 /100 WBC 0-0 NEUTROPHILS RELATIVE PERCENT (BEAKER) (test afpc=516) 85 % LYMPHOCYTES RELATIVE PERCENT (BEAKER) (test dqlr=461) 4 % MONOCYTES RELATIVE PERCENT (BEAKER) (test mqym=152) 11 % EOSINOPHILS RELATIVE PERCENT (BEAKER) (test ksec=151) 0 % BASOPHILS RELATIVE PERCENT (BEAKER) (test rntt=088) 0 % NEUTROPHILS ABSOLUTE COUNT (BEAKER) (test itwq=833) 10.30 K/ L 1.80-8.00 LYMPHOCYTES ABSOLUTE COUNT (BEAKER) (test qvja=556) 0.50 K/ L 1.48-4.50 MONOCYTES ABSOLUTE COUNT (BEAKER) (test snml=471) 1.40 K/ L 0.00-1.30 EOSINOPHILS ABSOLUTE COUNT (BEAKER) (test nlpi=076) 0.00 K/ L 0.00-0.50 BASOPHILS ABSOLUTE COUNT (BEAKER) (test ypjl=159) 0.00 K/ L 0.00-0.20 BASIC METABOLIC [id number] 04:46:00* Test Item Value Reference Range Comments SODIUM (BEAKER) (test wmqn=934) 133 meq/L 135-148 POTASSIUM (BEAKER) (test gahl=019) 5.5 meq/L 3.6-5.5 CHLORIDE (BEAKER) (test nbyb=020) 97 meq/L 98-106 CO2 (BEAKER) (test glij=798) 19 meq/L 20-29 BLOOD UREA NITROGEN (BEAKER) (test bnto=856) 43 mg/dL 10-26 CREATININE (BEAKER) (test exzo=494) 10.14 mg/dL 0.50-1.20 GLUCOSE RANDOM (BEAKER) (test flul=480) 113 mg/dL 70-110 CALCIUM (BEAKER) (test cizj=765) 8.3 mg/dL 8.5-10.5 EGFR (BEAKER) (test vpyy=7609) 5 mL/min/1.73 sq m ESTIMATED GFR IS NOT ACCURATE CREATININE CLEARANCE IN PREDICTING GLOMERULAR FILTRATION RATE. ESTIMATED GFR IS NOT APPLICABLE FOR DIALYSIS PATIENTS. LIPID [id number] 04:39:00* Test Item Value Reference Range Comments TRIGLYCERIDES (BEAKER) (test iroo=014) 124 mg/dL CHOLESTEROL (BEAKER) (test rlcm=518) 163 mg/dL HDL CHOLESTEROL (BEAKER) (test ospr=289) 40 mg/dL LDL CHOLESTEROL CALCULATED (BEAKER) (test jpvb=311) 98 mg/dL Triglyceride Reference Range: Low Risk <150 Borderline 150-199 High Risk 200-499 Very High Risk >=500Cholesterol Reference Range: Low Risk <200 Borderline 200-239 High Risk >240HDL Cholesterol Reference Range: Low Risk >=60 High Risk <40LDL Cholesterol Reference Range: Optimal <100 Near Optimal 100-129 Borderline 130-159 High 160-189 Very High >=190 URINALYSIS W/ [id number] 17:04:00* Test Item Value Reference Range Comments COLOR (BEAKER) (test ckse=611) Yellow CLARITY (BEAKER) (test xmmz=548) Clear SPECIFIC GRAVITY UA (BEAKER) (test moxb=293) 1.015 1.001-1.035 PH UA (BEAKER) (test pswi=715) 8.0 5.0-8.0 PROTEIN UA (BEAKER) (test ewxz=904) 100 mg/dL Negative GLUCOSE UA (BEAKER) (test bwjq=242) 100 mg/dL Negative KETONES UA (BEAKER) (test fyln=287) Negative Negative BILIRUBIN UA (BEAKER) (test lpvz=420) Negative Negative BLOOD UA (BEAKER) (test dhrm=681) Small Negative NITRITE UA (BEAKER) (test diow=951) Negative Negative LEUKOCYTE ESTERASE UA (BEAKER) (test dnhd=772) Negative Negative UROBILINOGEN UA (BEAKER) (test salk=578) 0.2 mg/dL 0.2-1.0 BACTERIA (BEAKER) (test tdmt=009) Few RBC UA-MANUAL (BEAKER) (test rvhk=7002) <5 /HPF WBC UA-MANUAL (BEAKER) (test jxll=4907) <5 /HPF SQUAMOUS EPITHELIAL MANUAL (BEAKER) (test uemi=8767) <5 /HPF SOURCE(BEAKER) (test ufrs=0125) COMPREHENSIVE METABOLIC [id number] 16:51:00* Test Item Value Reference Range Comments TOTAL PROTEIN (BEAKER) (test ctau=005) 9.3 gm/dL 6.0-8.5 Specimen slightly hemolyzed ALBUMIN (BEAKER) (test smpn=9654) 3.9 g/dL 3.5-5.0 Specimen slightly hemolyzed ALKALINE PHOSPHATASE (BEAKER) (test tgvn=172) 58 U/L 30-115 BILIRUBIN TOTAL (BEAKER) (test uvjr=357) 0.3 mg/dL 0.1-1.2 Specimen slightly hemolyzed SODIUM (BEAKER) (test iypv=137) 132 meq/L 135-148 POTASSIUM (BEAKER) (test trqh=330) 5.4 meq/L 3.6-5.5 Specimen slightly hemolyzed CHLORIDE (BEAKER) (test euzm=057) 92 meq/L 98-106 CO2 (BEAKER) (test zdvj=368) 21 meq/L 20-29 BLOOD UREA NITROGEN (BEAKER) (test zuor=973) 35 mg/dL 10-26 CREATININE (BEAKER) (test nmbe=980) 9.03 mg/dL 0.50-1.20 Specimen slightly hemolyzed GLUCOSE RANDOM (BEAKER) (test yjwr=969) 95 mg/dL 70-110 CALCIUM (BEAKER) (test pszg=159) 9.0 mg/dL 8.5-10.5 AST (SGOT) (BEAKER) (test lwqj=299) 24 U/L 5-40 Specimen slightly hemolyzed ALT (SGPT) (BEAKER) (test sxdl=132) 20 U/L 5-50 Specimen slightly hemolyzed EGFR (BEAKER) (test frmr=1214) 6 mL/min/1.73 sq m ESTIMATED GFR IS NOT ACCURATE CREATININE CLEARANCE IN PREDICTING GLOMERULAR FILTRATION RATE. ESTIMATED GFR IS NOT APPLICABLE FOR DIALYSIS PATIENTS. [id number] 16:50:00* Test Item Value Reference Range Comments LIPASE (BEAKER) (test ksqs=997) 15 U/L 6-51 [id number] 16:46:00* Test Item Value Reference Range Comments PHOSPHORUS (BEAKER) (test gctp=072) 3.9 mg/dL 2.5-4.5 Specimen slightly hemolyzed LACTIC ACID, VENOUS, WHOLE [id number] 16:42:00* Test Item Value Reference Range Comments LACTATE BLOOD VENOUS (2) (BEAKER) (test kfni=0958) 1.2 mmol/L 0.5-2.2 Specimen slightly hemolyzed Effective 01/28/2016: Units/Reference Range ChangeNew: 0.5-2.2 mmol/L Previous: 5 -18 mg/dLPROTHROMBIN [id number] 16:41:00* Test Item Value Reference Range Comments PROTIME (BEAKER) (test mvnm=391) 11.4 sec 9.3-12.0 INR (BEAKER) (test zpzp=365) 1.1 <=5.9 RECOMMENDED COUMADIN/WARFARIN INR THERAPY RANGESSTANDARD DOSE: 2.0 - 3.0 Inclu catherine: PROPHYLAXIS for venous thrombosis, systemic embolization; TREATMENT for jenny ous thrombosis and/or pulmonary embolus.HIGH RISK: Target INR is 2.5-3.5 for pat ients with mechanical heart valves.Final Information (Auto Output)Final Informat ion (Auto Output)[id number] 16:41:00* Test Item Value Reference Range Comments MAGNESIUM (BEAKER) (test wbfp=509) 2.1 mg/dL 1.5-3.0 Specimen slightly hemolyzed RAD, CHEST, 1 VIEW, NON [id number] 16:31:00Reason for exam:->BACK PAINReason for exam:->FEVERShould this be performed at the bedside?->YesFINAL REPORT TECHNIQUE: Frontal chest radiograph dated 04/06/2018. CLINICAL HISTORY: Back pain , fever COMPARISON STUDY: Chest radiograph dated 01/24/2018 IMPRESSION:Right-sided vascular line is unchanged. Lungs are clear. No pleural effusion or pneumothorax. Cardiomediastinal silhouette is normal in size. No pulmonary edema. No fracture. Signed: Silvana Moya Date/Time: 04/06/2018 16:31:49 Reading Location: [facility] Radiology Reading Room P M CBC W/PLT COUNT & AUTO [id number] 16:18:00* Test Item Value Reference Range Comments WHITE BLOOD CELL COUNT (BEAKER) (test xayh=787) 11.7 K/ L 4.0-10.0 RED BLOOD CELL COUNT (BEAKER) (test ellg=968) 3.70 M/ L 4.00-5.00 HEMOGLOBIN (BEAKER) (test mwjf=426) 10.4 GM/DL 12.0-15.0 HEMATOCRIT (BEAKER) (test fjcd=212) 31.9 % 36.0-45.0 MEAN CORPUSCULAR VOLUME (BEAKER) (test hjtw=067) 86.2 fL 82.0-99.0 MEAN CORPUSCULAR HEMOGLOBIN (BEAKER) (test axwd=636) 28.1 pg 27.0-33.0 MEAN CORPUSCULAR HEMOGLOBIN CONC (BEAKER) (test wygz=107) 32.6 GM/DL 32.0-36.0 RED CELL DISTRIBUTION WIDTH (BEAKER) (test oxgk=212) 19.4 % 10.3-14.2 PLATELET COUNT (BEAKER) (test zjmf=625) 187 K/CU MM 150-430 MEAN PLATELET VOLUME (BEAKER) (test hmaa=310) 8.1 fL 6.5-10.5 NUCLEATED RED BLOOD CELLS (BEAKER) (test hszl=091) 0 /100 WBC 0-0 NEUTROPHILS RELATIVE PERCENT (BEAKER) (test erhx=590) 89 % LYMPHOCYTES RELATIVE PERCENT (BEAKER) (test dqsb=660) 5 % MONOCYTES RELATIVE PERCENT (BEAKER) (test hjjk=392) 6 % EOSINOPHILS RELATIVE PERCENT (BEAKER) (test ykud=895) 0 % BASOPHILS RELATIVE PERCENT (BEAKER) (test znus=237) 0 % NEUTROPHILS ABSOLUTE COUNT (BEAKER) (test kumz=044) 10.50 K/ L 1.80-8.00 LYMPHOCYTES ABSOLUTE COUNT (BEAKER) (test eogf=143) 0.50 K/ L 1.48-4.50 MONOCYTES ABSOLUTE COUNT (BEAKER) (test itsy=917) 0.70 K/ L 0.00-1.30 EOSINOPHILS ABSOLUTE COUNT (BEAKER) (test cdop=489) 0.00 K/ L 0.00-0.50 BASOPHILS ABSOLUTE COUNT (BEAKER) (test wogr=423) 0.00 K/ L 0.00-0.20 RAD, CHEST, 2 [id number] 12:57:00Reason for Exam:->Kidney txp evalLocation- >[facility] Hospital[facility] Two views chest Discussion: Right dialysis catheter in place lower SVC level. Lungs clear. Heart size normal. No effusion or pneumothorax. Signed: Dai Donald Verified Date/Time: 01/24/2018 12:57:23 Reading Location: [facility] Radiology Reading Room , CHEST, 1 VIEW, NON [id number] 08:26:00Reason for exam:-> pneumoniaShould this be performed at the bedside?->YesFINAL REPORT Chest, 1 view, 11/28/2017 8:07 AM. History: Hyperkalemia, renal failure. Comparison: 11/24/2017. Discussion: The cardiomediastinal silhouette and pulmonary vasculature are within normal limits for a portable exam. The lungs are clear without evidence of consolidation or effusion. A new right IJ tunneled dialysis catheter terminates near the cavoatrial junction. The soft tissues and osseous structures are intact. IMPRESSION: No acute cardiopulmonary abnormality. Signed: Elio Munoz Verified Date/Time: 12/05/2017 08:26:47 Reading Location: [facility] Radiology Reading Room C METABOLIC PANEL 2017-11-27 07:32:00* Test Item Value Reference Range Comments SODIUM (BEAKER) (test bool=307) 141 meq/L 135-148 POTASSIUM (BEAKER) (test jbvb=399) 4.1 meq/L 3.6-5.5 CHLORIDE (BEAKER) (test evmz=272) 100 meq/L 98-106 CO2 (BEAKER) (test uzip=695) 25 meq/L 20-29 BLOOD UREA NITROGEN (BEAKER) (test evky=748) 48 mg/dL 10-26 CREATININE (BEAKER) (test rezm=524) 9.80 mg/dL 0.50-1.20 GLUCOSE RANDOM (BEAKER) (test rtii=035) 94 mg/dL 70-110 CALCIUM (BEAKER) (test bllp=436) 8.4 mg/dL 8.5-10.5 EGFR (BEAKER) (test yfgn=3072) 5 mL/min/1.73 sq m ESTIMATED GFR IS NOT ACCURATE CREATININE CLEARANCE IN PREDICTING GLOMERULAR FILTRATION RATE. ESTIMATED GFR IS NOT APPLICABLE FOR DIALYSIS PATIENTS. COMPREHENSIVE METABOLIC [id number] 07:31:00* Test Item Value Reference Range Comments TOTAL PROTEIN (BEAKER) (test yiou=101) 7.3 gm/dL 6.0-8.5 ALBUMIN (BEAKER) (test ckqu=7277) 3.1 g/dL 3.5-5.0 ALKALINE PHOSPHATASE (BEAKER) (test dazb=983) 53 U/L 30-115 BILIRUBIN TOTAL (BEAKER) (test ojti=881) 0.3 mg/dL 0.1-1.2 SODIUM (BEAKER) (test sujv=561) 141 meq/L 135-148 POTASSIUM (BEAKER) (test mcvf=950) 4.1 meq/L 3.6-5.5 CHLORIDE (BEAKER) (test aidl=579) 100 meq/L 98-106 CO2 (BEAKER) (test wrvc=026) 25 meq/L 20-29 BLOOD UREA NITROGEN (BEAKER) (test irdc=840) 48 mg/dL 10-26 CREATININE (BEAKER) (test ykps=598) 9.80 mg/dL 0.50-1.20 GLUCOSE RANDOM (BEAKER) (test ycce=920) 94 mg/dL 70-110 CALCIUM (BEAKER) (test mzjk=960) 8.4 mg/dL 8.5-10.5 AST (SGOT) (BEAKER) (test zahn=256) 13 U/L 5-40 ALT (SGPT) (BEAKER) (test ltfu=289) 6 U/L 5-50 EGFR (BEAKER) (test hbcj=8583) 5 mL/min/1.73 sq m ESTIMATED GFR IS NOT ACCURATE CREATININE CLEARANCE IN PREDICTING GLOMERULAR FILTRATION RATE. ESTIMATED GFR IS NOT APPLICABLE FOR DIALYSIS PATIENTS. [id number] 07:21:00* Test Item Value Reference Range Comments PHOSPHORUS (BEAKER) (test qdia=341) 5.7 mg/dL 2.5-4.5 [id number] 07:15:00* Test Item Value Reference Range Comments MAGNESIUM (BEAKER) (test qkvd=579) 2.0 mg/dL 1.5-3.0 CBC W/PLT COUNT & AUTO [id number] 07:08:00* Test Item Value Reference Range Comments WHITE BLOOD CELL COUNT (BEAKER) (test bpis=268) 7.6 K/ L 4.0-10.0 RED BLOOD CELL COUNT (BEAKER) (test gszh=688) 3.29 M/ L 4.00-5.00 HEMOGLOBIN (BEAKER) (test mmjd=809) 9.2 GM/DL 12.0-15.0 HEMATOCRIT (BEAKER) (test nksl=897) 27.1 % 36.0-45.0 MEAN CORPUSCULAR VOLUME (BEAKER) (test rnuu=394) 82.3 fL 82.0-99.0 MEAN CORPUSCULAR HEMOGLOBIN (BEAKER) (test twzj=312) 27.9 pg 27.0-33.0 MEAN CORPUSCULAR HEMOGLOBIN CONC (BEAKER) (test epef=830) 33.9 GM/DL 32.0-36.0 RED CELL DISTRIBUTION WIDTH (BEAKER) (test jaym=645) 14.3 % 10.3-14.2 PLATELET COUNT (BEAKER) (test bkpd=639) 229 K/CU MM 150-430 MEAN PLATELET VOLUME (BEAKER) (test tbvg=148) 8.7 fL 6.5-10.5 NUCLEATED RED BLOOD CELLS (BEAKER) (test jnvd=357) 0 /100 WBC 0-0 NEUTROPHILS RELATIVE PERCENT (BEAKER) (test kfuu=222) 61 % LYMPHOCYTES RELATIVE PERCENT (BEAKER) (test ifvm=647) 19 % MONOCYTES RELATIVE PERCENT (BEAKER) (test eoyh=075) 14 % EOSINOPHILS RELATIVE PERCENT (BEAKER) (test hafj=079) 5 % BASOPHILS RELATIVE PERCENT (BEAKER) (test ohtl=718) 1 % NEUTROPHILS ABSOLUTE COUNT (BEAKER) (test xlpe=089) 4.60 K/ L 1.80-8.00 LYMPHOCYTES ABSOLUTE COUNT (BEAKER) (test zrlh=628) 1.50 K/ L 1.48-4.50 MONOCYTES ABSOLUTE COUNT (BEAKER) (test kgmn=119) 1.10 K/ L 0.00-1.30 EOSINOPHILS ABSOLUTE COUNT (BEAKER) (test pyqd=519) 0.40 K/ L 0.00-0.50 BASOPHILS ABSOLUTE COUNT (BEAKER) (test otsa=786) 0.10 K/ L 0.00-0.20 RAD, ABDOMEN/KUB 1 VIEW [id number] 15:48:00Reason for exam:->ILIEUSShould this be performed at the bedside?->YesFINAL REPORT Abdomen dated to November 26, 2017 Comment:Abdomen was examined in the supine frontal position. Air is seen in the small and large bowel without dilatation to suggest mechanical obstruction or ileus. No mass, pathological calcification, or free air is present. Impression: No mechanical obstruction or ileus. Signed: Ana M Serrano MDRort Verified Date/Time: 11/26/2017 15:48:30 Reading Location: [facility] C013Y CT Body Reading Room C METABOLIC [id number] 10:57:00* Test Item Value Reference Range Comments SODIUM (BEAKER) (test mfas=610) 140 meq/L 135-148 POTASSIUM (BEAKER) (test zhrb=364) 4.1 meq/L 3.6-5.5 CHLORIDE (BEAKER) (test euct=087) 99 meq/L 98-106 CO2 (BEAKER) (test yrkd=703) 24 meq/L 20-29 BLOOD UREA NITROGEN (BEAKER) (test niip=344) 70 mg/dL 10-26 CREATININE (BEAKER) (test gdfy=599) 12.40 mg/dL 0.50-1.20 GLUCOSE RANDOM (BEAKER) (test zeat=424) 96 mg/dL 70-110 CALCIUM (BEAKER) (test boti=017) 8.2 mg/dL 8.5-10.5 EGFR (BEAKER) (test lyxv=5583) 4 mL/min/1.73 sq m ESTIMATED GFR IS NOT ACCURATE CREATININE CLEARANCE IN PREDICTING GLOMERULAR FILTRATION RATE. ESTIMATED GFR IS NOT APPLICABLE FOR DIALYSIS PATIENTS. BASIC METABOLIC [id number] 06:01:00* Test Item Value Reference Range Comments SODIUM (BEAKER) (test osso=121) 135 meq/L 135-148 POTASSIUM (BEAKER) (test ugrv=371) 7.9 meq/L 3.6-5.5 Specimen markedly hemolyzed CHLORIDE (BEAKER) (test henp=591) 99 meq/L 98-106 CO2 (BEAKER) (test kufi=570) 22 meq/L 20-29 BLOOD UREA NITROGEN (BEAKER) (test giho=584) 69 mg/dL 10-26 CREATININE (BEAKER) (test mrfq=305) 12.40 mg/dL 0.50-1.20 Specimen markedly hemolyzed GLUCOSE RANDOM (BEAKER) (test vced=001) 99 mg/dL 70-110 CALCIUM (BEAKER) (test syvt=008) 7.8 mg/dL 8.5-10.5 EGFR (BEAKER) (test mhfa=2511) 4 mL/min/1.73 sq m ESTIMATED GFR IS NOT ACCURATE CREATININE CLEARANCE IN PREDICTING GLOMERULAR FILTRATION RATE. ESTIMATED GFR IS NOT APPLICABLE FOR DIALYSIS PATIENTS. CBC W/PLT COUNT & AUTO [id number] 05:53:00* Test Item Value Reference Range Comments WHITE BLOOD CELL COUNT (BEAKER) (test ozxu=399) 7.0 K/ L 4.0-10.0 RED BLOOD CELL COUNT (BEAKER) (test exmz=670) 3.30 M/ L 4.00-5.00 HEMOGLOBIN (BEAKER) (test usyr=174) 9.1 GM/DL 12.0-15.0 HEMATOCRIT (BEAKER) (test rtug=523) 27.0 % 36.0-45.0 MEAN CORPUSCULAR VOLUME (BEAKER) (test auka=937) 81.8 fL 82.0-99.0 MEAN CORPUSCULAR HEMOGLOBIN (BEAKER) (test hono=658) 27.7 pg 27.0-33.0 MEAN CORPUSCULAR HEMOGLOBIN CONC (BEAKER) (test eids=090) 33.8 GM/DL 32.0-36.0 RED CELL DISTRIBUTION WIDTH (BEAKER) (test deac=367) 15.1 % 10.3-14.2 PLATELET COUNT (BEAKER) (test ssev=200) 262 K/CU MM 150-430 MEAN PLATELET VOLUME (BEAKER) (test rawv=441) 9.3 fL 6.5-10.5 NUCLEATED RED BLOOD CELLS (BEAKER) (test jzjw=355) 0 /100 WBC 0-0 NEUTROPHILS RELATIVE PERCENT (BEAKER) (test tqjb=923) 63 % LYMPHOCYTES RELATIVE PERCENT (BEAKER) (test kafa=145) 18 % MONOCYTES RELATIVE PERCENT (BEAKER) (test adcs=844) 13 % EOSINOPHILS RELATIVE PERCENT (BEAKER) (test qtah=342) 4 % BASOPHILS RELATIVE PERCENT (BEAKER) (test bmzk=487) 1 % NEUTROPHILS ABSOLUTE COUNT (BEAKER) (test juph=984) 4.40 K/ L 1.80-8.00 LYMPHOCYTES ABSOLUTE COUNT (BEAKER) (test fsjn=755) 1.30 K/ L 1.48-4.50 MONOCYTES ABSOLUTE COUNT (BEAKER) (test tcsm=268) 0.90 K/ L 0.00-1.30 EOSINOPHILS ABSOLUTE COUNT (BEAKER) (test fphs=112) 0.30 K/ L 0.00-0.50 BASOPHILS ABSOLUTE COUNT (BEAKER) (test aosp=949) 0.10 K/ L 0.00-0.20 [id number] 05:51:00* Test Item Value Reference Range Comments MAGNESIUM (BEAKER) (test ojmn=528) 3.9 mg/dL 1.5-3.0 Specimen markedly hemolyzed HEPATITIS B CORE ANTIBODY, [id number] 20:27:00* Test Item Value Reference Range Comments HEPATITIS B CORE TOTAL ANTIBODY (BEAKER) (test fyqr=186) Nonreactive Nonreactive URIC [id number] 14:57:00* Test Item Value Reference Range Comments URIC ACID (BEAKER) (test wrqk=559) < mg/dL 2.5-8.0 Specimen moderately hemolyzed CBC W/PLT COUNT & AUTO [id number] 14:33:00* Test Item Value Reference Range Comments WHITE BLOOD CELL COUNT (BEAKER) (test sdij=864) 6.2 K/ L 4.0-10.0 RED BLOOD CELL COUNT (BEAKER) (test vmeh=165) 2.45 M/ L 4.00-5.00 HEMOGLOBIN (BEAKER) (test ecwg=511) 6.7 GM/DL 12.0-15.0 HEMATOCRIT (BEAKER) (test udsk=097) 19.7 % 36.0-45.0 MEAN CORPUSCULAR VOLUME (BEAKER) (test sakr=647) 80.7 fL 82.0-99.0 MEAN CORPUSCULAR HEMOGLOBIN (BEAKER) (test lzff=889) 27.5 pg 27.0-33.0 MEAN CORPUSCULAR HEMOGLOBIN CONC (BEAKER) (test tyuf=034) 34.1 GM/DL 32.0-36.0 RED CELL DISTRIBUTION WIDTH (BEAKER) (test dyxv=895) 15.0 % 10.3-14.2 PLATELET COUNT (BEAKER) (test rzuo=848) 238 K/CU MM 150-430 MEAN PLATELET VOLUME (BEAKER) (test khub=957) 8.9 fL 6.5-10.5 NUCLEATED RED BLOOD CELLS (BEAKER) (test nsyf=397) 0 /100 WBC 0-0 NEUTROPHILS RELATIVE PERCENT (BEAKER) (test iilu=650) 67 % LYMPHOCYTES RELATIVE PERCENT (BEAKER) (test ufob=256) 15 % MONOCYTES RELATIVE PERCENT (BEAKER) (test pxiq=612) 13 % EOSINOPHILS RELATIVE PERCENT (BEAKER) (test teqb=439) 4 % BASOPHILS RELATIVE PERCENT (BEAKER) (test ohnl=116) 1 % NEUTROPHILS ABSOLUTE COUNT (BEAKER) (test zgcp=201) 4.10 K/ L 1.80-8.00 LYMPHOCYTES ABSOLUTE COUNT (BEAKER) (test jeqn=813) 0.90 K/ L 1.48-4.50 MONOCYTES ABSOLUTE COUNT (BEAKER) (test nacs=328) 0.80 K/ L 0.00-1.30 EOSINOPHILS ABSOLUTE COUNT (BEAKER) (test bpxv=830) 0.30 K/ L 0.00-0.50 BASOPHILS ABSOLUTE COUNT (BEAKER) (test dflh=104) 0.00 K/ L 0.00-0.20 URINALYSIS W/ [id number] 10:50:00* Test Item Value Reference Range Comments COLOR (BEAKER) (test nupx=875) Yellow CLARITY (BEAKER) (test qhgd=379) Clear SPECIFIC GRAVITY UA (BEAKER) (test njxl=603) 1.020 1.001-1.035 PH UA (BEAKER) (test dmvj=577) 7.5 5.0-8.0 PROTEIN UA (BEAKER) (test sntn=426) >=300 mg/dL Negative GLUCOSE UA (BEAKER) (test rkjy=618) 100 mg/dL Negative KETONES UA (BEAKER) (test wfld=172) Negative Negative BILIRUBIN UA (BEAKER) (test ecjx=330) Negative Negative BLOOD UA (BEAKER) (test euxm=595) Small Negative NITRITE UA (BEAKER) (test ahfv=733) Negative Negative LEUKOCYTE ESTERASE UA (BEAKER) (test etdg=502) Trace Negative UROBILINOGEN UA (BEAKER) (test ymhj=982) 0.2 mg/dL 0.2-1.0 BACTERIA (BEAKER) (test diit=533) Moderate RBC UA-MANUAL (BEAKER) (test vrdj=5625) 5-10 /HPF WBC UA-MANUAL (BEAKER) (test jpnd=3628) 5-10 /HPF SQUAMOUS EPITHELIAL MANUAL (BEAKER) (test ziqe=9907) 5-10 /HPF SOURCE(BEAKER) (test bemi=1576) HEPATITIS B SURFACE [id number] 10:45:00* Test Item Value Reference Range Comments HEPATITIS B SURFACE ANTIBODY (BEAKER) (test yjlw=872) < mIU/mL <8.0 BASIC METABOLIC [id number] 08:19:00* Test Item Value Reference Range Comments SODIUM (BEAKER) (test eywz=105) 138 meq/L 135-148 POTASSIUM (BEAKER) (test xoau=511) 4.3 meq/L 3.6-5.5 CHLORIDE (BEAKER) (test pjpr=802) 100 meq/L 98-106 CO2 (BEAKER) (test tclt=434) 21 meq/L 20-29 BLOOD UREA NITROGEN (BEAKER) (test aspy=788) 109 mg/dL 10-26 CREATININE (BEAKER) (test yjrr=864) 17.50 mg/dL 0.50-1.20 GLUCOSE RANDOM (BEAKER) (test hhmo=543) 92 mg/dL 70-110 CALCIUM (BEAKER) (test bbqy=047) 7.9 mg/dL 8.5-10.5 EGFR (BEAKER) (test ucpz=4667) 3 mL/min/1.73 sq m ESTIMATED GFR IS NOT ACCURATE CREATININE CLEARANCE IN PREDICTING GLOMERULAR FILTRATION RATE. ESTIMATED GFR IS NOT APPLICABLE FOR DIALYSIS PATIENTS. [id number] 08:02:00* Test Item Value Reference Range Comments MAGNESIUM (BEAKER) (test jpvl=053) 1.9 mg/dL 1.5-3.0 HEPATITIS B SURFACE [id number] 20:10:00* Test Item Value Reference Range Comments HEPATITIS B SURFACE ANTIGEN (2) (BEAKER) (test lxqa=8912) Nonreactive Nonreactive ANG, TUNNELED CATHETER [id number] 16:41:00Reason for exam:-> GENERALIZED WEAKNESS, NOT ASSOCIATED WITH EXTREMITIESpt unable to eat/drink for 10 days w/o vomitingFINAL REPORT Daycare Teacher: Francy History: End-stage renal disease . Technique: Following informed written consent, the patient's right neck region and anterior chest wall were prepped and draped in the usual sterile manner. All elements maximal sterile barrier technique was utilized for this procedure, including utilization of sterile scrub solution for skin prep, a large sterile sheet to cover the areas of the patient that were not prepped, and hand hygiene, mask, head covering, and sterile gown for performing radiologist and scrub technologist. 2% lidocaine was given locally for anesthesia. Additionally, the patient was given Versed 2 mg and fentanyl 100 mcg for conscious sedation and pain control for physician intraservice time of 30 min. Vital signs were monitored and remained stable. Access was gained to the right internal jugular vein using ultrasound guidance and a micropuncture needle. A subcutaneous tunnel was created in the anterior chest wall . A 24 duraflow catheter was tunneled and following serial dilatation of the tract, placed through a peel-away sheath and into position within the atriocaval junction under fluoroscopic control. The catheter was secured to the skin using 2-0 prolene suture. The small incision site was closed using 2-0 chromic. There were no immediate complications. Findings: The right internal jugular vein was patent by ultrasound. An image was saved to PACS. Spot radiograph following catheter insertion demonstrates the right internal jugular tunneled dialysis catheter to lie in expected position with its tip in the a triocaval junction . No pneumothorax is identified. Total fluoroscopy time: 6 se conds Estimated dose reported as ( Ka, r): 0.1 mGy Impression: 1. Successful unc omplicated placement of a tunneled right internal jugular dialysis catheter. Si gned: Herman Seneport Verified Date/Time: 11/24/2017 16:41:09 Reading Loca tion: [facility] Radiology Reading Room U/S, RENAL, [id number] 14:07:00Reason for exam:->GENERALIZED WEAKNESS, NOT ASSOCIATED WITH EXTREMITIESpt unable to eat/drink for 10 days w/o vomitingFINAL REPORT Renal ultrasound, 11/24/2017 Clinical History: Generalized weakness, not associated with extremities Discussion: Sonographic evaluation of the kidneys is performed. The right kidney measures 9.3 cm in length and the left kidney measures 10.5 cm in length. Both kidneys are significantly echogenic without evidence of hydronephrosis, shadowing stones, cysts, or masses. No perinephric fluid collection is seen. A Chacon catheter is present within a decompressed urinary bladder. Impression:Echogenic kidneys compatible with renal parenchymal disease. Signed: Radha Fongort Verified Date/Time: 11/24/2017 14:07:46 Reading Location: [facility] Mammo Reading Room ALYSIS WITH MICROSCOPIC IF INDICATED 2017-11-24 12:37:00* Test Item Value Reference Range Comments COLOR (BEAKER) (test zsey=710) Yellow CLARITY (BEAKER) (test iuon=708) Clear SPECIFIC GRAVITY UA (BEAKER) (test hmxh=705) 1.015 1.001-1.035 PH UA (BEAKER) (test eswx=846) 6.0 5.0-8.0 PROTEIN UA (BEAKER) (test sbqs=418) >=300 mg/dL Negative GLUCOSE UA (BEAKER) (test akok=346) 100 mg/dL Negative KETONES UA (BEAKER) (test lmrg=498) Negative Negative BILIRUBIN UA (BEAKER) (test nkbm=610) Negative Negative BLOOD UA (BEAKER) (test elak=418) Moderate Negative NITRITE UA (BEAKER) (test bult=969) Negative Negative LEUKOCYTE ESTERASE UA (BEAKER) (test disx=014) Trace Negative UROBILINOGEN UA (BEAKER) (test tlwp=899) 0.2 mg/dL 0.2-1.0 SOURCE(BEAKER) (test ladl=2175) URINALYSIS [id number] 12:37:00* Test Item Value Reference Range Comments RBC UA-MANUAL (BEAKER) (test epbz=0036) 20-50 /HPF WBC UA-MANUAL (BEAKER) (test lmbk=7875) 5-10 /HPF BACTERIA (BEAKER) (test waqz=911) Few SQUAMOUS EPITHELIAL MANUAL (BEAKER) (test czue=4309) 5-10 /HPF B-TYPE NATRIURETIC FACTOR (BNP)2017-11-24 12:36:00* Test Item Value Reference Range Comments B-TYPE NATRIURETIC PEPTIDE (BEAKER) (test ikbw=076) 184 pg/mL 0-100 TROPONIN [id number] 12:35:00* Test Item Value Reference Range Comments TROPONIN I (BEAKER) (test utqw=934) 0.06 ng/mL 0.00-0.15 Troponin I (TnI) levels must be interpreted in the context of the presenting sym ptoms and the clinical findings. Elevated TnI levels indicate myocardial damage, but are not specific for ischemic heart disease. Elevated TnI levels are seen in patients with other cardiac conditions (including myocarditis and congestive h eart failure), and slight TnI elevations occur in patients with other conditions , including sepsis, renal failure, acidosis, acute neurological disease, and per sistent tachyarrhythmia.COMPREHENSIVE METABOLIC [id number] 12:32:00* Test Item Value Reference Range Comments TOTAL PROTEIN (BEAKER) (test qdua=062) 7.6 gm/dL 6.0-8.5 ALBUMIN (BEAKER) (test ywbz=1244) 3.3 g/dL 3.5-5.0 ALKALINE PHOSPHATASE (BEAKER) (test umhw=702) 55 U/L 30-115 BILIRUBIN TOTAL (BEAKER) (test jbpp=744) 0.3 mg/dL 0.1-1.2 SODIUM (BEAKER) (test zfqc=139) 134 meq/L 135-148 POTASSIUM (BEAKER) (test mqrs=607) 6.1 meq/L 3.6-5.5 CHLORIDE (BEAKER) (test tuqh=886) 100 meq/L 98-106 CO2 (BEAKER) (test crol=442) 8 meq/L 20-29 BLOOD UREA NITROGEN (BEAKER) (test coac=397) > mg/dL 10-26 CREATININE (BEAKER) (test imjj=124) 27.10 mg/dL 0.50-1.20 GLUCOSE RANDOM (BEAKER) (test poyc=442) 102 mg/dL 70-110 CALCIUM (BEAKER) (test fkyx=333) 7.5 mg/dL 8.5-10.5 AST (SGOT) (BEAKER) (test zzeo=779) 14 U/L 5-40 ALT (SGPT) (BEAKER) (test hklj=643) 26 U/L 5-50 EGFR (BEAKER) (test gilh=5479) 2 mL/min/1.73 sq m ESTIMATED GFR IS NOT ACCURATE CREATININE CLEARANCE IN PREDICTING GLOMERULAR FILTRATION RATE. ESTIMATED GFR IS NOT APPLICABLE FOR DIALYSIS PATIENTS. [id number] 12:29:00* Test Item Value Reference Range Comments LIPASE (BEAKER) (test pfst=074) 188 U/L 6-51 U/S, ABDOMINAL, [id number] 12:11:00Abdomen limited area? Add comment if clarification is needed.->Right upper quadrantReason for exam:->GENERALIZED WEAKNESS, NOT ASSOCIATED WITH EXTREMITIESpt unable to eat/drink for 10 days w/o vomitingFINAL REPORT HISTORY : Right upper quadrant pain COMPARISON: None. COMMENT: Limited ultrasound examination of the abdomen was performed with attention to the right upper quadrant. The visualized pancreas is unremarkable. The liver is normal in size measuring 14.7 cm in length. The hepatic parenchyma is homogeneous without evidence for focal abnormality. The main portal vein is patent with a diameter of 0.8 cm, within normal limits. The gallbladder is unremarkable. There is no evidence for shadowing stones, gallbladder wall thickening, or pericholecystic fluid. There is intra or extrahepatic biliary ductal dilatation. The common bile duct measures 4 mm. Sonographic Roland's sign is negative. The right kidney is decreased in size measuring 8.3 cm in length and demonstrates increased cortical echogenicity. There is no evidence for solid renal mass, hydronephrosis, or shadowing calculi within the right kidney. The visual portions of the aorta and IVC are within normal limits. There is no ascites or pleural fluid visualized. IMPRESSION : Sonographic findings suggestive of chronic medical renal disease. Otherwise unremarkable limited abdominal ultrasound examination. Signed: Jaxson Andrade Verified Date/Time: 11/24/2017 12:11:32 Reading Location: [facility] Diagnostic Imaging Reading Room [place] [address] [id number] 11:03:00* Test Item Value Reference Range Comments MAGNESIUM (BEAKER) (test xjqd=877) 2.6 mg/dL 1.5-3.0 Specimen moderately hemolyzed CBC W/PLT COUNT & AUTO [id number] 10:58:00* Test Item Value Reference Range Comments WHITE BLOOD CELL COUNT (BEAKER) (test wknu=509) 8.1 K/ L 4.0-10.0 RED BLOOD CELL COUNT (BEAKER) (test sskg=661) 2.88 M/ L 4.00-5.00 HEMOGLOBIN (BEAKER) (test aezv=365) 7.8 GM/DL 12.0-15.0 HEMATOCRIT (BEAKER) (test gxoo=273) 22.9 % 36.0-45.0 MEAN CORPUSCULAR VOLUME (BEAKER) (test gvyh=401) 79.6 fL 82.0-99.0 MEAN CORPUSCULAR HEMOGLOBIN (BEAKER) (test ccge=030) 27.0 pg 27.0-33.0 MEAN CORPUSCULAR HEMOGLOBIN CONC (BEAKER) (test xyse=871) 33.9 GM/DL 32.0-36.0 RED CELL DISTRIBUTION WIDTH (BEAKER) (test aorv=652) 14.9 % 10.3-14.2 PLATELET COUNT (BEAKER) (test trik=101) 253 K/CU MM 150-430 MEAN PLATELET VOLUME (BEAKER) (test dkpe=648) 9.3 fL 6.5-10.5 NUCLEATED RED BLOOD CELLS (BEAKER) (test vsuk=984) 0 /100 WBC 0-0 NEUTROPHILS RELATIVE PERCENT (BEAKER) (test acik=593) 80 % LYMPHOCYTES RELATIVE PERCENT (BEAKER) (test rvpe=647) 11 % MONOCYTES RELATIVE PERCENT (BEAKER) (test lmot=897) 6 % EOSINOPHILS RELATIVE PERCENT (BEAKER) (test qdhi=561) 3 % BASOPHILS RELATIVE PERCENT (BEAKER) (test tcux=669) 0 % NEUTROPHILS ABSOLUTE COUNT (BEAKER) (test uikj=121) 6.40 K/ L 1.80-8.00 LYMPHOCYTES ABSOLUTE COUNT (BEAKER) (test cnfd=210) 0.90 K/ L 1.48-4.50 MONOCYTES ABSOLUTE COUNT (BEAKER) (test cbsq=683) 0.50 K/ L 0.00-1.30 EOSINOPHILS ABSOLUTE COUNT (BEAKER) (test ljbz=013) 0.20 K/ L 0.00-0.50 BASOPHILS ABSOLUTE COUNT (BEAKER) (test gxpz=449) 0.00 K/ L 0.00-0.20 RAD, CHEST, 1 VIEW, NON [id number] 10:15:00Reason for exam:->chest painIs the patient ?->UnknownShould this be performed at the bedside?->YesFINAL REPORT Chest one view compared to July 28, 2017 Discussion: Heart, lungs, bones, soft tissues unremarkable. No effusion or pneum othorax. Signed: Dai Donald MDReport Verified Date/Time: 11/24/2017 10:15:03 Reading Location: [facility] Radiology Reading Room Electronically isabelle d by: DAI DONALD M.D. on 11/24/2017 10:15 AM RAD, SHOULDER, COMPLETE (MIN 2 VIEWS), [id number] 17:56:00Reason for exam:->arthritisFINAL REPORT RAD, SHOULDER, COMPLETE (MIN 2 VIEWS), LEFT COMPARISON: None INDICATION: arthritis FINDINGS: AP views in internal and external rotation and an axillary "Y" view of the leftshoulder. No fracture or malalignment is identified. The glenohumeral and acromioclavicular joints are intact. Surrounding soft tissue are unremarkable. No abnormal calcification is present. IMPRESSION: No acute abnormality of the left shoulder. Signed: JR Moore Robert MDRepshalonda Verified Date/Time: 07/30/2017 17:56:11 Reading Location: [address] Reading Room C METABOLIC [id number] 06:57:00* Test Item Value Reference Range Comments SODIUM (BEAKER) (test affk=280) 138 meq/L 135-148 POTASSIUM (BEAKER) (test rnmp=622) 4.2 meq/L 3.6-5.5 CHLORIDE (BEAKER) (test djer=925) 109 meq/L 98-106 CO2 (BEAKER) (test rela=605) 19 meq/L 20-29 BLOOD UREA NITROGEN (BEAKER) (test itfd=623) 54 mg/dL 10-26 CREATININE (BEAKER) (test whjc=144) 4.10 mg/dL 0.50-1.20 GLUCOSE RANDOM (BEAKER) (test qlxd=123) 96 mg/dL 70-110 CALCIUM (BEAKER) (test qwxo=531) 8.9 mg/dL 8.5-10.5 EGFR (BEAKER) (test obtn=2487) 14 mL/min/1.73 sq m ESTIMATED GFR IS NOT ACCURATE CREATININE CLEARANCE IN PREDICTING GLOMERULAR FILTRATION RATE. ESTIMATED GFR IS NOT APPLICABLE FOR DIALYSIS PATIENTS. TROPONIN [id number] 08:44:00* Test Item Value Reference Range Comments TROPONIN I (BEAKER) (test pfch=845) < ng/mL 0.00-0.15 Troponin I (TnI) levels must be interpreted in the context of the presenting sym ptoms and the clinical findings. Elevated TnI levels indicate myocardial damage, but are not specific for ischemic heart disease. Elevated TnI levels are seen in patients with other cardiac conditions (including myocarditis and congestive h eart failure), and slight TnI elevations occur in patients with other conditions , including sepsis, renal failure, acidosis, acute neurological disease, and per sistent tachyarrhythmia.CREATINE KINASE (CK), TOTAL AND [id number] 08:43:00* Test Item Value Reference Range Comments CREATINE KINASE TOTAL (BEAKER) (test quud=831) 176 U/L 25-235 CREATINE KINASE-MB (BEAKER) (test kzbj=481) 1.3 ng/mL 0.0-4.9 CREATINE KINASE-MB INDEX (BEAKER) (test iqwy=011) 0.7 % CK-MB Reference Range:<5 Normal5-10 Borderline>10 AbnormalTROPONIN I 2017-07-29 00:36:00* Test Item Value Reference Range Comments TROPONIN I (BEAKER) (test tbhx=173) < ng/mL 0.00-0.15 Troponin I (TnI) levels must be interpreted in the context of the presenting sym ptoms and the clinical findings. Elevated TnI levels indicate myocardial damage, but are not specific for ischemic heart disease. Elevated TnI levels are seen in patients with other cardiac conditions (including myocarditis and congestive h eart failure), and slight TnI elevations occur in patients with other conditions , including sepsis, renal failure, acidosis, acute neurological disease, and per sistent tachyarrhythmia.CREATINE KINASE (CK), TOTAL AND [id number] 00:35:00* Test Item Value Reference Range Comments CREATINE KINASE TOTAL (BEAKER) (test zbuo=402) 189 U/L 25-235 CREATINE KINASE-MB (BEAKER) (test zedl=688) 1.2 ng/mL 0.0-4.9 CREATINE KINASE-MB INDEX (BEAKER) (test wkph=540) 0.6 % CK-MB Reference Range:<5 Normal5-10 Borderline>10 AbnormalPUL PERF IMAGING, PSYCHIATRIC, [id number] 21:33:00FINAL REPORT PROCEDURE: V/Q LUNG SCAN CPT CODE: 98589 INDICATION: dyspnea PROTOCOL: 9.2 mCi of Xe-133 gas was administered by inhalation. Single breath and rebreathing/washout images were obtained in the anterior and the posterior projections. 6.4 mCi of Tc-99m MAA was then injected intravenously, and static perfusion images were obtained in multiple projections. FINDINGS: Ventilation: Initial tracer distribution is mildly irregular. Washout is mildly delayed. Perfusion: Tracer distribution is physiological. IMPRESSION: 1. No evidence of pulmonary embolization 2. Mild parenchymal or atelectatic changes. Signed: Binh Rachel MDReport Verified Date/Time: 07/28/2017 21:33:10 [id number] 19:03:00* Test Item Value Reference Range Comments D-DIMER QUANTITATIVE (KULWINDER) (test fsqm=053) 0.47 MG/L FEU <0.50 REGARDING D-DIMER RESULTS: The 98% NPV (Negative Predictive Value) for DVT/PE ex clusion is 0.50 mg/L FEU as suggested by the slug press operator and as approved by the FDA.B-TYPE NATRIURETIC FACTOR (BNP)2017-07-28 17:47:00* Test Item Value Reference Range Comments B-TYPE NATRIURETIC PEPTIDE (KULWINDER) (test stnf=585) 105 pg/mL 0-100 RAD, CHEST, 1 VIEW, NON [id number] 17:47:00Reason for exam:->sobIs the patient ?->UnknownFINAL REPORT TECHNIQUE: Single view of the chest. COMPARISON: None FINDINGS: The cardiac silhouette is within normal limits. Mediastinum is unremarkable. Lungs are clear. Osseous structures appear unremarkable. Soft tissues appear unremarkable. IMPRESSION: No acute cardiopulmonary disease. Signed: Herman Sen MDReport Verified Date/Time: 07/28/2017 17:47:08 Reading Location: [facility] Radiology Reading Room ONIN [id number] 17:44:00* Test Item Value Reference Range Comments TROPONIN I (KULWINDER) (test urjn=817) < ng/mL 0.00-0.15 Troponin I (TnI) levels must be interpreted in the context of the presenting sym ptoms and the clinical findings. Elevated TnI levels indicate myocardial damage, but are not specific for ischemic heart disease. Elevated TnI levels are seen in patients with other cardiac conditions (including myocarditis and congestive h eart failure), and slight TnI elevations occur in patients with other conditions , including sepsis, renal failure, acidosis, acute neurological disease, and per sistent tachyarrhythmia.BASIC METABOLIC [id number] 17:43:00* Test Item Value Reference Range Comments SODIUM (BEAKER) (test vgnc=867) 137 meq/L 135-148 POTASSIUM (BEAKER) (test ajvr=208) 4.5 meq/L 3.6-5.5 CHLORIDE (BEAKER) (test isgl=349) 108 meq/L 98-106 CO2 (BEAKER) (test ugee=937) 19 meq/L 20-29 BLOOD UREA NITROGEN (BEAKER) (test yzlz=444) 57 mg/dL 10-26 CREATININE (BEAKER) (test lcch=355) 4.60 mg/dL 0.50-1.20 GLUCOSE RANDOM (BEAKER) (test amtv=182) 83 mg/dL 70-110 CALCIUM (BEAKER) (test lyuk=301) 9.1 mg/dL 8.5-10.5 EGFR (BEAKER) (test gsai=0545) mL/min/1.73 sq m INSUFFICIENT CLINICAL DATA TO CALCULATE ESTIMATED GFR. CREATINE KINASE (CK), TOTAL AND [id number] 17:43:00* Test Item Value Reference Range Comments CREATINE KINASE TOTAL (BEAKER) (test nzra=875) 225 U/L 25-235 CREATINE KINASE-MB (BEAKER) (test vynk=307) 1.2 ng/mL 0.0-4.9 CREATINE KINASE-MB INDEX (BEAKER) (test ugzt=616) 0.5 % CK-MB Reference Range:<5 Normal5-10 Borderline>10 [id number] 17:26:00* Test Item Value Reference Range Comments MAGNESIUM (BEAKER) (test pkav=715) 1.8 mg/dL 1.5-3.0 [id number] 17:24:00* Test Item Value Reference Range Comments PROTIME (BEAKER) (test lsem=635) 10.2 seconds 9.3-12.0 INR (BEAKER) (test uxqb=879) 1.0 <=5.9 PARTIAL THROMBOPLASTIN TIME (BEAKER) (test upfr=445) 25.7 seconds 23.0-35.0 RECOMMENDED COUMADIN/WARFARIN INR THERAPY RANGESSTANDARD DOSE: 2.0 - 3.0 Inclu catherine: PROPHYLAXIS for venous thrombosis, systemic embolization; TREATMENT for jenny ous thrombosis and/or pulmonary embolus.HIGH RISK: Target INR is 2.5-3.5 for pat ients with mechanical heart valves.CBC W/PLT COUNT & AUTO [id number] 17:12:00* Test Item Value Reference Range Comments WHITE BLOOD CELL COUNT (BEAKER) (test aglj=339) 5.6 K/ L 4.0-10.0 RED BLOOD CELL COUNT (BEAKER) (test tdfj=234) 4.00 M/ L 4.00-5.00 HEMOGLOBIN (BEAKER) (test ezup=555) 11.1 GM/DL 12.0-15.0 HEMATOCRIT (BEAKER) (test qpqe=322) 33.2 % 36.0-45.0 MEAN CORPUSCULAR VOLUME (BEAKER) (test cefa=329) 83.0 fL 82.0-99.0 MEAN CORPUSCULAR HEMOGLOBIN (BEAKER) (test mjhz=025) 27.7 pg 27.0-33.0 MEAN CORPUSCULAR HEMOGLOBIN CONC (BEAKER) (test zvki=667) 33.4 GM/DL 32.0-36.0 RED CELL DISTRIBUTION WIDTH (BEAKER) (test gcoh=986) 15.3 % 10.3-14.2 PLATELET COUNT (BEAKER) (test vyde=271) 244 K/CU MM 150-430 MEAN PLATELET VOLUME (BEAKER) (test dcoh=183) 8.7 fL 6.5-10.5 NUCLEATED RED BLOOD CELLS (BEAKER) (test dquz=089) 0 /100 WBC 0-0 NEUTROPHILS RELATIVE PERCENT (BEAKER) (test kbbq=828) 65 % LYMPHOCYTES RELATIVE PERCENT (BEAKER) (test jdzu=893) 21 % MONOCYTES RELATIVE PERCENT (BEAKER) (test trkv=702) 11 % EOSINOPHILS RELATIVE PERCENT (BEAKER) (test qchr=273) 2 % BASOPHILS RELATIVE PERCENT (BEAKER) (test zlpg=843) 1 % NEUTROPHILS ABSOLUTE COUNT (BEAKER) (test gqtg=921) 3.60 K/ L 1.80-8.00 LYMPHOCYTES ABSOLUTE COUNT (BEAKER) (test mimd=555) 1.20 K/ L 1.48-4.50 MONOCYTES ABSOLUTE COUNT (BEAKER) (test tuol=154) 0.60 K/ L 0.00-1.30 EOSINOPHILS ABSOLUTE COUNT (BEAKER) (test ffnu=412) 0.10 K/ L 0.00-0.50 BASOPHILS ABSOLUTE COUNT (BEAKER) (test hpww=689) 0.00 K/ L 0.00-0.20
[2019-01-25] MEDS ORDERED: ALBUTEROL SULF 0.083% NEB SOLN 3 ML NEB NEB STA (21:06)
[2019-01-25] MEDS ORDERED: IPRATROPIUM BROMIDE 0.02% 2.5 ML NEB NEB STA (21:06)
[2019-01-25] MEDS ORDERED: HYDRALAZINE HCL 20 MG/ML VIAL IV STA (21:08)
[2019-01-25] MEDS ORDERED: NITROGLYCERIN 2% OINT 1 GM PKT TOP ONE (21:15)
[2019-01-25] MEDS ORDERED: ACETAMINOPHEN 325 MG TAB PO PRN ×2 (21:15→22:30)
[2019-01-25] MEDS ORDERED: CLONIDINE HCL 0.2 MG TAB PO PRN ×2 (21:15→22:30)
[2019-01-25] MEDS ORDERED: ONDANSETRON HCL INJ 2MG/ML 2ML 2 MG/ML VIAL IV PRN (21:15)
[2019-01-25] MEDS ORDERED: DIPHENHYDRAMINE HCL INJ 50 MG/ML VIAL IV PRN ×2 (21:15→22:30)
[2019-01-25] MEDS ORDERED: SOD POLYSTYRENE SULFONATE SUSP 15 GM/60 ML BTL PO STA (22:23)
[2019-01-25] MEDS ORDERED: DEXTROSE 50% SYRINGE 50 ML IV STA (22:23)
[2019-01-25] MEDS ORDERED: SODIUM BICARBONATE 8.4% INJ 50 ML SYR IV STA (22:23)
[2019-01-25] MEDS ORDERED: VANCOMYCIN 1GM/NS 250 ML 250 ML IV ONE (22:30)
[2019-01-25] MEDS ORDERED: ZOLPIDEM TARTRATE 5 MG TAB PO PRN (22:30)
[2019-01-25] MEDS ORDERED: HYDRALAZINE HCL 20 MG/ML VIAL IV PRN (22:30)
[2019-01-25] MEDS ORDERED: INSULIN REGULAR, HUMAN 100 UNIT/1 ML 3ML VIAL IV ONE (22:30)
[2019-01-25] MEDS ORDERED: SODIUM CHLORIDE FLUSH 10 ML SYR INJ PRN (22:45)
--- NOTE | 2019-01-25 22:47 | Diagnostic Imaging Report ---
EXAMINATION: CXR 2 VIEW - HOPD INDICATION: Shortness of breath, cough, and congestion. ^[id number] ^2220 COMPARISON: None FINDINGS: PA and lateral views TUBES and LINES: None. LUNGS: Lungs are well inflated. Central vascular congestion. PLEURA: No pleural effusion or pneumothorax. HEART AND MEDIASTINUM: The cardiomediastinal silhouette is unremarkable. BONES AND SOFT TISSUES: No acute osseous lesion. Soft tissues are unremarkable. UPPER ABDOMEN: No free air under the diaphragm. IMPRESSION: Pulmonary vascular congestion. Underlying pneumonia cannot be excluded in the right infrahilar region. Signed by: Dr. Claudy Huber MD on 01/25/2019 10:43 PM
--- OUTSIDE RECORDS SUMMARY | 2019-01-25 23:02 | XMS REPORT | Continuity of Care Document ---
Author Author [facility] Interface Address Unknown Phone Unavailable Problems Problem Status Onset Date Classification Date Reported Comments Source Hypertensive chronic kidney disease with stage 5 chronic kidney disease or end stage renal disease 01/04/2018 04/04/2018 [facility] N18.6 Active 12/21/2017 [facility] NA Active 12/21/2017 [facility] End stage renal disease 04/04/2018 [facility] Anemia in chronic kidney disease 04/04/2018 [facility] Supraventricular tachycardia 04/04/2018 [facility] Dependence on renal dialysis 04/04/2018 [facility] Hyperlipidemia, unspecified 04/04/2018 [facility] Medications Medication Details Route Status Patient Instructions Ordering Provider Order Date Source phenylephrine (ANES) Route: IV, Drug form: INJ, ONCE, Stop date: 12/27/17 10:49:00 CDT Inactive 12/27/2017 [facility] ondansetron (ANES) Route: IV, Drug form: INJ, ONCE, Stop date: 12/27/17 10:49:00 CDT Inactive 12/27/2017 [facility] propofol (ANES) Route: IV, Drug form: INJ, ONCE, Stop date: 12/27/17 10:24:00 CDT Inactive 12/27/2017 [facility] dexamethasone (ANES) Route: IV, Drug form: INJ, ONCE, Stop date: 12/27/17 10:24:00 CDT Inactive 12/27/2017 [facility] fentaNYL (ANES) Route: IV, Drug form: INJ, ONCE, Stop date: 12/27/17 10:24:00 CDT Inactive 12/27/2017 [facility] midazolam (ANES) Route: IV, Drug form: SOLN, ONCE, Stop date: 12/27/17 10:24:00 CDT Inactive 12/27/2017 [facility] Dexamethasone 4 mg, 1 mL, Route: IVP, Drug form: INJ, ONCE, Dosing Weight 77.727, kg, PRN Nausea & Vomiting, Start date: 12/27/17 9:50:00 CDTNotes: Concentration: 4mg/ml Inactive 12/27/2017 [facility] Ondansetron 4 mg, 2 mL, Route: IVP, Drug form: INJ, ONCE, Dosing Weight 77.727, kg, PRN Nausea & Vomiting, Start date: 12/27/17 9:50:00 CDTNotes: (Same as: Zofran) MEDICATION WASTE Product Size: 4 mg Product Wasted: ___ mg Inactive 12/27/2017 [facility] Fentanyl 25 microgram, 0.5 mL, Route: IVP, Drug form: INJ, Q5Min, Dosing Weight 77.727, kg, PRN Pain Score 4-6, Priority: Routine, Start date: 12/27/17 9:50:00 CDT, Duration: 4 doses or times, Stop date: Limited # of timesNotes: (Same as: Sublimaze) Preservative free. Inactive 12/27/2017 [facility] Flumazenil 0.2 mg, 2 mL, Route: IVP, Drug form: INJ, PRN, Dosing Weight 77.727, kg, PRN Benzodiazepine Reversal, Initial dose, Start date: 12/27/17 9:50:00 CDT, Duration: 30 day, Stop date: 01/26/18 9:49:00 CDT Notes: (Same as: Romazicon) Inactive 12/27/2017 [facility] Naloxone 0.4 mg, 1 mL, Route: IVP, Drug form: INJ, Q2MIN, Dosing Weight 77.727, kg, PRN Narcotic Reversal, Start date: 12/27/17 9:50:00 CDT, Duration: 8 doses or times, Stop date: Limited # of timesNotes: Same as Narcan Inactive 12/27/2017 [facility] Acetaminophen 1,000 mg, 100 mL, Route: IV, Drug form: INJ, ONCE, Dosing Weight 77.727, kg, PRN Pain Score 1-3, Start date: 12/27/17 9:50:00 CDTNotes: Infuse over 15 minutes Do not exceed 4gm/day of acetaminophen MEDICATION WASTE Product Size: 1000 mg Product Wasted: ___ mg Inactive 12/27/2017 [facility] Hydralazine 10 mg, 0.5 mL, Route: IVP, Drug form: INJ, Q20Min, Dosing Weight 77.727, kg, PRN Elevated BP, Start date: 12/27/17 9:50:00 CDT, Duration: 2 doses or times, Stop date: Limited # of timesNotes: (Same as: Apresoline) Push over 5 minutes Inactive 12/27/2017 [facility] Labetalol 10 mg, 2 mL, Route: IVP, Drug form: INJ, Q5Min, Dosing Weight 77.727, kg, PRN Elevated BP, Start date: 12/27/17 9:50:00 CDT, Duration: 5 doses or times, Stop date: Limited # of times Inactive 12/27/2017 [facility] vancomycin (ANES) 1000 mg Route: IV, Drug form: INJ, Start date: 12/27/17 9:48:00 CDT, Stop date: 12/27/17 10:48:00 CDT Inactive 12/27/2017 [facility] Sodium Chloride 0.9% IV (ANES) 500 mL Route: IV, Total Volume: 500, Start date: 12/27/17 9:41:00 CDT, Stop date: 12/27/17 10:41:00 CDT Inactive 12/27/2017 [facility] acetaminophen-codeine #3 2 tab, Route: PO, Drug Form: TAB, Dosing Weight 77.727, kg, Q4H, PRN Pain Score 4-6, Start date: 12/27/17 8:22:00 CDT, Duration: 30 day, Stop date: 01/26/18 8:21:00 CDTNotes: Do not exceed 4gm/day of acetaminophen. (Same as: Tylenol with Codeine # 3) Inactive 12/27/2017 [facility] Vancomycin 1,000 mg, Route: IVPB, PRE OP, Dosing Weight 77.727, kg, Start date: 12/27/17 7:00:00 CDT, Duration: 1 doses or times, ABX Indication: Surgical ProphylaxisNotes: TIME CRITICAL MEDICATION (Same As: Vanco stephenie) Infusion rate 2001 mg: infuse over 2.5 hours For adult patients only: Round to nearest 250 mg per Medical Staff approval MEDICATION WASTE Product Size: 1000 mg Product Wasted: ___ mg Inactive 12/27/2017 [facility] Colchicine 0.6 MG Oral Tablet 0.6 mg=1 tab, PO, Daily, PRN gout flare ups Active 12/26/2017 [facility] metoprolol tartrate 100 mg oral tablet 100 mg=1 tab, PO, BID, 0 Refill(s) Active 12/26/2017 [facility] amLODIPine 10 mg oral tablet 10 mg=1 tab, PO, BID Active 12/26/2017 [facility] RenaPlex oral tablet 1 tab, PO, Daily Active 12/26/2017 [facility] Allergies, Adverse Reactions, Alerts Substance Category Reaction Severity Reaction type Status Date Reported Comments Source NKFA Assertion Food allergy Active [facility] Immunizations Immunization Date Given Site Status Last Updated Comments Source Results Order Name Results Value Reference Range Date Interpretation Comments Source CHEM PANEL eGFR 8 mL/min/1.73m2 12/27/2017 Result Comment: The eGFR is calculated using the [...] from the National Kid[employer] Disease Education Program (NKDEP) which additionally recommends that when the eGFR is used in patients with extremes of body mass index for purposes of drug dosing, the eGFR should be multiplied by the estimated BMI. [facility] CHEM PANEL POC Carbon Dioxide 29 mEq/dL 24 - 32 12/27/2017 [facility] CHEM PANEL POC Creatinine 6.3 mg/dL 0.5 - 1.4 12/27/2017 [facility] CHEM PANEL POC BUN 27 mg/dL 7 - 22 12/27/2017 [facility] CHEM PANEL POC Glucose 96 mg/dL 70 - 99 12/27/2017 [facility] CHEM PANEL POC Ion Ca 1.04 mMol/L 1.05 - 1.25 12/27/2017 [facility] CHEM PANEL POC Sodium 137 meq/L 135 - 145 12/27/2017 [facility] CHEM PANEL POC Hematocrit 34.0 % 36.0 - 48.0 12/27/2017 [facility] CHEM PANEL POC Hemoglobin 11.6 g/dL 12.0 - 16.0 12/27/2017 [facility] CHEM PANEL POC AGAP 16.0 meq/L 10.0 - 20.0 12/27/2017 [facility] CHEM PANEL POC Chloride 97 meq/L 95 - 109 12/27/2017 [facility] CHEM [facility] POC Potassium 3.9 meq/L 3.5 - 5.1 12/27/2017 [facility] CHEM PANEL eGFR 9 mL/min/1.73m2 12/27/2017 Result Comment: The eGFR is calculated using the [...] from the National Kid[employer] Disease Education Program (NKDEP) which additionally recommends that when the eGFR is used in patients with extremes of body mass index for purposes of drug dosing, the eGFR should be multiplied by the estimated BMI. [facility] CHEM PANEL Calcium Lvl 8.3 mg/dL 8.5 - 10.5 12/27/2017 [facility] CHEM PANEL CO2 28 meq/L 24 - 32 12/27/2017 [facility] CHEM PANEL Creatinine Lvl 6.00 mg/dL 0.50 - 1.40 12/27/2017 [facility] CHEM PANEL Glucose Lvl 92 mg/dL 70 - 99 12/27/2017 [facility] CHEM PANEL BUN 26 mg/dL 7 - 22 12/27/2017 [facility] CHEM PANEL Potassium Lvl 3.8 meq/L 3.5 - 5.1 12/27/2017 [facility] CHEM PANEL Chloride Lvl 99 meq/L 95 - 109 12/27/2017 [facility] CHEM PANEL Sodium Lvl 137 meq/L 135 - 145 12/27/2017 [facility] CHEM PANEL AGAP 13.8 meq/L 10.0 - 20.0 12/27/2017 [facility] HEMATOLOGY PT 13.3 s 12.0 - 14.7 12/27/2017 [facility] HEMATOLOGY PTT 80.0 s 22.9 - 35.8 12/27/2017 [facility] HEMATOLOGY INR 1.01 0.85 - 1.17 12/27/2017 [facility] HEMATOLOGY WBC 7.7 K/CMM 3.7 - 10.4 12/27/[address] [facility] RBC 3.69 M/CMM 4.20 - 5.40 12/27/[address] [facility] Hct 32.0 % 36.0 - 48.0 12/27/[address] [facility] Hgb 10.5 g/dL 12.0 - 16.0 12/27/[address] [facility] MCV 86.7 fL 80.0 - 98.0 12/27/[address] [facility] MCH 28.5 pg 27.0 - 31.0 12/27/[address] [facility] RDW 18.1 % 11.5 - 14.5 12/27/[address] [facility] Platelet 186 K/CMM 133 - 450 12/27/[address] [facility] MCHC 32.9 g/dL 32.0 - 36.0 12/27/[address] [facility] MPV 8.6 fL 7.4 - 10.4 12/27/[address] [facility] Monocytes # 1.0 K/CMM 0.0 - 0.8 12/27/[address] [facility] Lymphocytes # 1.4 K/CMM 1.0 - 5.5 12/27/[address] [facility] Segs-Bands # 4.9 K/CMM 1.5 - 8.1 12/27/[address] [facility] Basophils 0.8 % 0.0 - 1.0 12/27/[address] [facility] Monocytes 13.4 % 2.0 - 12.0 12/27/[address] [facility] Lymphocytes 18.6 % 20.0 - 40.0 12/27/[address] [facility] Segs 63.1 % 45.0 - 75.0 12/27/[address] [facility] Eosinophils 4.1 % 0.0 - 4.0 12/27/[address] [facility] Basophils # 0.1 K/CMM 0.0 - 0.2 12/27/[address] [facility] Eosinophils # 0.3 K/CMM 0.0 - 0.5 12/27/2017 [facility] URINE CHEM U Preg Negative (12/27/17 6:48 AM) Negative 12/27/2017 [facility] Chest 1view DX Chest 1view DX XR CHEST 1 VIEW HISTORY: Abnormal chest sounds - ESRD / A-V FISTULA CREATION. COMPARISON: None. FINDINGS: Right jugular dialysis catheter, tip positioned over the lower 3rd of the SVC near the cavoatrial junction. The lungs are clear. The heart and vascular markings are normal. No pleural abnormality. The bones are intact. IMPRESSION: No active process. SL: [id number] 12/27/2017 - - Read by: Ignacio Elliott MD Dictated Date/time: 12/27/17 07:47 Electronically Signed by: Ignacio Elliott MD 12/27/17 07:47 FINAL REPORT [facility] Vital Signs Vital Sign Value Date Comments Source Systolic (mm Hg) 120 12/27/2017 [facility] Diastolic (mm Hg) 78 12/27/2017 [facility] Respitory Rate 14 12/27/2017 [facility] Systolic (mm Hg) 104 12/27/2017 [facility] Diastolic (mm Hg) 67 12/27/2017 [facility] Respitory Rate 16 12/27/2017 [facility] Systolic (mm Hg) 119 12/27/2017 [facility] Diastolic (mm Hg) 73 12/27/2017 [facility] Respitory Rate 14 12/27/2017 [facility] Temperature Oral (F) 97.8 F 12/27/2017 [facility] Weight 77.727 12/26/2017 [facility] Height 160.02 cm 12/26/2017 [facility] BMI Calculated 30.35 12/26/2017 [facility] Encounters Location Location Details Encounter Type Encounter Number Reason For Visit Attending Provider ADM Date DC Date Status Source [facility] Day Surgery [id number] Josemanuel Mercedes 12/27/2017 12/27/2017 [facility] Procedures Procedure Code Date Perfomer Comments Source Central line insertion<sup>1</sup> [id number] 11/24/2017 R IJ [facility] Hysteroscopy [id number] 09/26/2001 [facility]
--- OUTSIDE RECORDS SUMMARY | 2019-01-25 23:02 | XMS REPORT | Clinical Summary ---
Author Author JULIO C [facility] Address Unknown Phone Unavailable Care Team Providers Care Heating Element Winder Name Role Phone Eyad Hernandez MD PCP [...] dialysis (HCC); Leukocytosis, unspecified type; Tachycardia 04/06/2018 [facility] General Internal Medicine - Encounter 04/11/2018 Beba [...] blood chemistry; Pre-operative cardiovascular examination; Atherosclerosis of kaibab coronary artery of kaibab heart without angina pectoris; Impending cerebrovascular accident (HCC) 01/24/2018 Hospital Radiology Encounter Ya Sparks II, MD ESRD (end stage renal disease) (HCC); Pre-transplant evaluation for end stage renal disease; Essential hypertension, malignant; Anemia of chronic renal failure, unspecified CKD stage; Abnormal blood chemistry; Pre-operative cardiovascular examination; Atherosclerosis of kaibab coronary artery of kaibab heart without angina pectoris; Impending cerebrovascular accident [...] blood chemistry; Pre-operative cardiovascular examination; Atherosclerosis of kaibab coronary artery of kaibab heart without angina pectoris; Impending cerebrovascular accident (HCC) 01/24/2018 Orders Only Transplant Hepatology Ya Sparks II, MD Vado, Yubelka, RN ESRD (end stage renal disease) (HCC) (Primary Dx); Pre-transplant evaluation for end stage renal disease; Essential hypertension, malignant; Anemia of chronic renal failure, unspecified CKD stage; Abnormal blood chemistry; Pre-operative cardiovascular examination; Atherosclerosis of kaibab coronary artery of kaibab heart without angina pectoris; Impending cerebrovascular accident [...] (end stage renal 12:20 PM CDT disease) ([facility]) ECG 12-LEAD Routine 01/24/2018 11:35 AM CDT Procedure Note - Interface, External Ris In - 01/24/2018 11:39 AM CDT Ventricula r Rate 71 BPM Atrial Rate 71 BPM P-R Interval 142 ms QRS Duration 80 ms Q-T Interval 446 ms QTC Calculatio n(Bazett) 484 ms P [place] 52 degrees R [place] 56 degrees T [place] 62 degrees Normal sinus rhythm Prolonged QT Abnormal ECG No previous ECGs available ECG 12-LEAD Routine 01/24/2018 ESRD (end stage renal 11:35 AM CDT disease) ([facility]) Pre-transplant evaluation for end stage renal disease Essential hypertension, malignant Anemia of chronic renal failure, unspecified CKD stage Abnormal blood chemistry Pre-operative cardiovascular examination Atherosclerosis of kaibab coronary artery of kaibab heart without angina pectoris Impending cerebrovascular accident (HCC) TYPE AND SCREEN, Routine 01/24/2018 ESRD (end stage renal AUTOMATED 10:20 AM CDT disease) (HCC) Pre-transplant evaluation for end stage renal disease Essential hypertension, malignant Anemia of chronic renal failure, unspecified CKD stage Abnormal blood chemistry Pre-operative cardiovascular examination Atherosclerosis of kaibab coronary artery of kaibab heart without angina pectoris Impending cerebrovascular accident (HCC) after 01/24/2018 Results * CARDIAC CATH REPORT - SCAN (04/12/2018 1:22 PM CDT) Narrative Performed At * Catheter Tip Culture (04/10/2018 2:21 PM CDT) Result [facility] (A) [facility] Specimen Other Antibiotic Method Susceptibility Organism Cefepime <=1: Susceptible Pseudomonas aeruginosa Gentamicin <=1: Susceptible Pseudomonas aeruginosa Levofloxacin 0.5: Susceptible Pseudomonas aeruginosa Meropenem 0.5: Susceptible Pseudomonas aeruginosa Piperacillin + Tazobactam <=4: Susceptible Pseudomonas aeruginosa Tobramycin <=1: Susceptible Pseudomonas aeruginosa Performing Organization Address City/State/Zipcode Phone Number [facility] [address] [place], [place] [address] * IR Tunneled Catheter Removal (04/10/2018 2:05 [...] MD Report Verified Date/Time:04/10/2018 15:28:49 Reading Location: [facility] Radiology Reading Room Procedure Note Interface, External [...] Report Verified Date/Time: 04/10/2018 15:28:49 Reading Location: [facility] Radiology Reading Room Performing Organization Address City/State/Zipcode Phone Number [facility] * Hepatitis B surface antibody (04/10/2018 8:43 AM CDT) Hep B S Ab <8.0 <8.0 mIU/mL [facility] Specimen Blood Performing Organization Address City/[facility]/Zipcode Phone Number [place] [phone] [place] [address] [phone] [place] [address] * Blood culture (04/08/2018 12:18 PM CDT) Only the most recent of 4 results within the time period is included. Result No growth in 5 days [facility] Specimen Blood Performing Organization Address City/[facility]/Zipcode Phone Number [facility] [address] [place], [place] [address] * Manual Differential (04/08/2018 10:13 AM CDT) [...] LAND LAB[facility]ORY Anisocytosis 1+ few [facility] Specimen Blood Performing Organization Address City/[facility]/Zipcode Phone Number [facility] [address] [place], [place] [phone] * CBC with platelet count + automated diff (04/08/2018 10:13 AM CDT) Only the most recent of 3 results within the time period is included. WBC 9.2 4.0 - 10.0 K/L [facility] RBC 3.33 (L) 4.00 - 5.00 M/L [facility] Hemoglobin 9.5 (L) 12.0 - 15.0 GM/DL [facility] Hematocrit 28.5 (L) 36.0 - 45.0 % [facility] MCV 85.6 82.0 - 99.0 fL [facility] MCH 28.4 27.0 - 33.0 pg [facility] MCHC 33.1 32.0 - 36.0 GM/DL [facility] RDW 18.6 (H) 10.3 - 14.2 % [facility] Platelets 191 150 - 430 K/CU MM [facility] MPV 9.2 6.5 - 10.5 fL [facility] nRBC 0 0 - 0 /100 WBC [facility] Specimen Blood Performing Organization Address City/[facility]/Zipcode Phone Number [facility] [address], [place] [phone] * Basic Metabolic Panel (04/08/2018 10:13 AM CDT) Only the most recent of 2 results within the time period is included. Sodium 134 (L) 135 - 148 meq/L [facility] Potassium 4.6 3.6 - 5.5 meq/L [facility] Chloride 97 (L) 98 - 106 meq/L [facility] CO2 22 20 - 29 meq/L [facility] BUN 39 (H) 10 - 26 mg/dL [facility] Creatinine 8.47 (H) 0.50 - 1.20 mg/dL [facility] Glucose 82 70 - 110 mg/dL [facility] Calcium 8.9 8.5 - 10.5 mg/dL [facility] EGFR 6Comment: ESTIMATED GFR IS NOT mL/min/1.73 sq m [facility] CLEARANCE IN PREDICTING GLOMERULAR FILTRATION RATE. ESTIMATED GFR IS NOT APPLICABLE FOR DIALYSIS PATIENTS. Specimen Blood Performing Organization Address [facility] Phone Number [facility] [address] [place] [phone] * Hepatitis B surface antigen (04/07/2018 3:40 PM CDT) hepatitis B Surface Ag NON-REACTIVE Nonreactive [facility] Specimen Blood Performing Organization Address [facility] Phone Number [facility] [address] [place] [phone] * Hemoglobin A1c (04/07/2018 3:56 AM CDT) Hemoglobin A1C 5.2 4.3 - 6.1 % [facility] Specimen Blood Performing Organization Address [facility] Phone Number [facility] [address] [place] [phone] * Lipid panel (04/07/2018 3:56 AM CDT) Triglycerides 124 mg/dL [facility] Cholesterol 163 mg/dL [facility] HDL 40 mg/dL [facility] LDL Calculated 98 mg/dL [facility] Specimen Blood Narrative Performed At Triglyceride Reference Range: [facility] Low Risk <150 LAB[facility]ATORY [id number] High Risk 200-499 Very High Risk>=500 Cholesterol Reference Range: Low Risk <200 [id number] High Risk>240 HDL Cholesterol Reference Range: Low Risk >=60 High Risk <40 LDL Cholesterol Reference Range: Optimal<100 Near [id number] [id number] Very High >=190 Performing Organization Address [facility] Phone Number [facility] [address] [place] [phone] * CRITICAL CARE (04/06/2018 7:19 PM CDT) [...] Specimen Narrative Performed At FINAL REPORT [facility] [employer] TECHNIQUE: Frontal chest radiograph dated 04/06/2018. CLINICAL HISTORY: Back pain , fever COMPARISON STUDY: Chest radiograph dated 01/24/2018 IMPRESSION: Right-sided vascular line is unchanged. Lungs are clear. No pleural effusion or pneumothorax. Cardiomediastinal silhouette is normal in size. No pulmonary edema. No fracture. Signed: Silvana Sanchez MD Report Verified Date/Time:04/06/2018 16:31:49 Reading Location: [facility] Radiology Reading Room Procedure Note Interface, External [...] Report Verified Date/Time: 04/06/2018 16:31:49 Reading Location: [facility] Radiology Reading Room Performing Organization Address City/State/Zipcode Phone Number [employer] * Urinalysis w/Microscopic (04/06/2018 4:11 PM CDT) Color, UA Yellow [facility] Clarity, UA Clear [facility] Specific [place], UA 1.015 1.001 - 1.035 [facility] pH, UA 8.0 5.0 - 8.0 [facility] Protein, UA 100 mg/dL (A) Negative [facility] Glucose, UA 100 mg/dL (A) Negative [facility] Ketones, UA Negative Negative [facility] Bilirubin, UA Negative Negative [facility] Blood, UA Small (A) Negative [facility] Nitrite, UA Negative Negative [facility] Leukocytes, UA Negative Negative [facility] Urobilinogen, UA 0.2 0.2 - 1.0 mg/dL [facility] Bacteria, UA Few [facility] RBC, UA <5 /HPF [facility] WBC, UA <5 /HPF [facility] SQUAMOUS EPITHELIAL <5 /HPF [facility] Specimen Source [facility] Specimen Urine Performing Organization Address [facility] Phone Number [facility] [address] [place], [place] [phone] * Prothrombin time/INR (04/06/2018 4:11 PM CDT) Protime 11.4 9.3 - 12.0 sec [facility] INR 1.1 <=5.9 [facility] Specimen Blood Narrative Performed At RECOMMENDED COUMADIN/WARFARIN INR THERAPY RANGES [facility] STANDARD DOSE: 2.0 - 3.0 Includes: PROPHYLAXIS for venous thrombosis, LABORATORY systemic embolization; TREATMENT for venous thrombosis and/or pulmonary embolus. HIGH RISK: Target INR is 2.5-3.5 for patients with mechanical heart valves. Final Information (Auto Output) Final Information (Auto Output) Performing Organization Address [facility] Phone Number [address] [phone] * Lactic acid, venous, whole blood (04/06/2018 4:10 PM CDT) Lactate, Venous 1.2Comment: Specimen slightly 0.5 - 2.2 mmol/L [facility] Specimen Blood Narrative Performed At Effective 01/28/2016: Units/Reference Range Change [facility] New: 0.5-2.2 mmol/LPrevious: 5-18 mg/dL LABORATORY Performing Organization Address [facility] Phone Number [facility] [address] [place], [place] [phone] * Phosphorus (04/06/2018 4:10 PM CDT) Phosphorus 3.9Comment: Specimen slightly 2.5 - 4.5 mg/dL [facility] Specimen Blood Performing Organization Address [facility] Phone Number [facility] [address] [place], [place] [phone] * Magnesium (04/06/2018 4:10 PM CDT) Magnesium 2.1Comment: Specimen slightly 1.5 - 3.0 mg/dL [facility] Specimen Blood Performing Organization Address City/[facility]/Zipcode Phone Number [facility] [address] [place] [phone] * Lipase (04/06/2018 4:10 PM CDT) Lipase 15 6 - 51 U/L [facility] Specimen Blood Performing Organization Address City/[facility] Phone Number [facility] [address] [place] [phone] * Comprehensive metabolic panel (04/06/2018 4:10 PM CDT) Protein, Total 9.3 (H)Comment: Specimen 6.0 - 8.5 gm/dL [facility] Albumin 3.9Comment: Specimen slightly 3.5 - 5.0 g/dL [facility] Alkaline Phosphatase 58 30 - 115 U/L [facility] Total Bilirubin 0.3Comment: Specimen slightly 0.1 - 1.2 mg/dL [facility] Sodium 132 (L) 135 - 148 meq/L [facility] Potassium 5.4Comment: Specimen slightly 3.6 - 5.5 meq/L [facility] Chloride 92 (L) 98 - 106 meq/L [facility] CO2 21 20 - 29 meq/L [facility] BUN 35 (H) 10 - 26 mg/dL [facility] Creatinine 9.03 (H)Comment: Specimen 0.50 - 1.20 mg/dL [facility] Glucose 95 70 - 110 mg/dL [facility] Calcium 9.0 8.5 - 10.5 mg/dL [facility] AST 24Comment: Specimen slightly 5 - 40 U/L [facility] hem[facility]zed [facility] ALT 20Comment: Specimen slightly 5 - 50 U/L [facility] hemolyzed [facility] EGFR 6Comment: ESTIMATED GFR IS NOT mL/min/1.73 sq m [facility] CLEARANCE IN PREDICTING GLOMERULAR FILTRATION RATE. ESTIMATED GFR IS NOT APPLICABLE FOR DIALYSIS PATIENTS. Specimen Blood Performing Organization Address City/State/Zipcode Phone Number [facility] [address] [place] [address] * TRANSFUSION SERVICE REPORT - SCAN (01/25/2018 5:44 PM CDT) Narrative Performed At * XR chest 2 views (01/24/2018 12:20 PM CDT) Specimen Narrative Performed At FINAL REPORT [facility] Two views chest Discussion: Right dialysis catheter in place lower SVC level. Lungs clear. Heart size normal. No effusion or pneumothorax. Signed: Dai Donald MD Report Verified Date/Time:01/24/2018 12:57:23 Reading Location: [facility] Radiology Reading Room Procedure Note Interface, External Ris In - 01/24/2018 12:59 PM CDT FINAL REPORT Two views chest Discussion: Right dialysis catheter in place lower SVC level. Lungs clear. Heart size normal. No effusion or pneumothorax. Signed: Dai Donald MD Report Verified Date/Time: 01/24/2018 12:57:23 Reading Location: [facility] Radiology Reading Room Performing Organization Address City/[facility] Phone Number [facility] * ECG 12 lead (01/24/2018 11:35 AM CDT) Specimen Narrative Performed At Ventricular Rate 71 BPM [facility] Atrial Rate 71 BPM P-R Interval 142 ms QRS Duration 80 ms Q-T Interval 446 ms QTC Calculation(Bazett) 484 ms P [place] 52 degrees R [place] 56 degrees T [place] 62 degrees Normal sinus rhythm Prolonged QT Abnormal ECG No previous ECGs available Confirmed by MD Jennifer, Jimmy ([id number]) on 01/24/2018 2:40:19 PM Procedure Note Interface, External Ris In - 01/24/2018 2:40 PM CDT Ventricular Rate 71 BPM Atrial Rate 71 BPM P-R Interval 142 ms QRS Duration 80 ms Q-T Interval 446 ms QTC Calculation(Bazett) 484 ms P [place] 52 degrees R [place] 56 degrees T [place] 62 degrees Normal sinus rhythm Prolonged QT Abnormal ECG No previous ECGs available Confirmed by MD Rodriguez Roberto ([id number]) on 01/24/2018 2:40:19 PM Performing Organization Address City/State/Zipcode Phone Number [facility] * Type and Screen, Automated (01/24/2018 10:20 AM CDT) ABO/RH AUTOMATED (BEAKER) O POSITIVE [facility] Ab Scrn NEGATIVE [facility] Specimen Blood Performing Organization Address City/State/Zipcode Phone Number [facility] [address] [place] [address] MEDICAL [facility]ENTER after 01/24/2018 Insurance Payer Benefit Subscriber ID Type Phone Address Plan / Group [employer]UE [employer] BCBS OS xxxxxxxxxxxxxxx PPO [phone] [address] POS/PPO/[place] [address] O Advance Directives For more information, please contact: [facility] [address] [place] [address] Date Inactivated Comments Code Status [...]
[2019-01-26] VITALS (8 sets, daily range): BP systolic 145–187; BP diastolic 71–87
[2019-01-26] MEDS ORDERED: NITROGLYCERIN 2% OINT 1 GM PKT TOP SCH
--- NOTE | 2019-01-26 | NUR ---
Transferred to room 284 via stretcher. Alert and orient to person, place, time, and reason for hospital visit. Skin warm and dry. 22g IV right AC, flushed 10ml NS. Right forearm fistula, closed. Dialysis MWF. Denies pain at this time. Abdomen soft and distended, nontender to touch. Active bowel sounds x4 quads. VSS. +2 LE pulses. Last BM, 01/25/19. Oriented to room. Family at bedside. Will continue to monitor.
[2019-01-26] MEDS ORDERED: SODIUM CHLORIDE 0.9% 250ML 250 ML ONE (00:37)
--- NOTE | 2019-01-26 00:45 | NUR ---
Paged Dr. Hernandez @[phone] for consult for Pt with Hyperkalemia and on dialysis MWF. Awaiting call back. Pt stable, no distress noted.
--- NOTE | 2019-01-26 00:45 | NUR ---
22g IV right AC painful and swelling. IV removed, pt tolerated well.
--- NOTE | 2019-01-26 02:00 | NUR ---
New 18g IV right EJ, x3 sticks. Flushed with 10ml NS. Addendum: 01/26/19 at 0403 by Germain Rosen RN IV performed by Mykel Nunez LVN
[2019-01-26] MEDS ORDERED: PNEUMOCOCCAL VACCINE POLYVALENT 23 MCG/0.5 ML VIAL IM SCH (02:49)
[2019-01-26] MEDS: ALBUTEROL SULF 0.083% NEB SOLN 3 ML NEB NEB SCH ×2 (03:00→07:00)
[2019-01-26 05:46] LABS: BASOPHILS % 0.3 % (0.0-1.0); EOSINOPHILS # (AUTO) 0.2 (0.0-0.4); EOSINOPHILS % 2.1 % (0.0-6.0); HEMATOCRIT 25.2 % (34.2-44.1); LYMPHOCYTES # (AUTO) 1.4 (1.0-3.2); MEAN CORPUSCULAR HEMOGLOBIN 27.4 pg (28-32); MEAN CORPUSCULAR HGB CONC 31.7 g/dL (31-35); MEAN CORPUSCULAR VOLUME 86.3 fL (81-99); MONOCYTES # (AUTO) 0.8 (0.2-0.8); NEUTROPHILS # (AUTO) 6.3 (2.1-6.9); NEUTROPHILS % 71.8 % (38.7-80.0); PLATELET COUNT 229 x10e3/uL (140-360); RED BLOOD COUNT 2.92 x10e6/uL (3.6-5.1); RED CELL DISTRIBUTION WIDTH 19.3 % (11.7-14.4)
[2019-01-26 05:53] LABS: ANION GAP 22.1 mmol/L (8-16); POTASSIUM 5.1 mmol/L (3.5-5.1)
[2019-01-26 06:08] LABS: CREATININE, SERUM 13.47 mg/dL (0.57-1.11)
[2019-01-26] MEDS ORDERED: METOPROLOL SUCC50 MG PO (06:35)
[2019-01-26] MEDS ORDERED: VITAMIN RENAL (06:35)
[2019-01-26] MEDS ORDERED: SENSIPAR30 MG PO (06:35)
[2019-01-26] MEDS ORDERED: AMLODIPINE BESY10 MG PO (06:35)
[2019-01-26] MEDS ORDERED: DOXEPIN HCL25 MG PO (06:35)
--- NOTE | 2019-01-26 07:30 | NUR ---
PT IS AAOX3, OXYGEN RUNNING AT O2 VIA NC, NO S/S OF DISTRESS. SIDE RAILS UP X2, BED IN LOWEST POSITION, AND SIDE RAILS UP X2.
--- NOTE | 2019-01-26 07:45 | NUR ---
PAGED DR. MAGAÑA ABOUT GETTING CONSULT/ORDER FOR DIALYSIS TODAY. [employer] INSTRUMENT REPAIRER TOOK MESSAGE.
--- NOTE | 2019-01-26 09:45 | NUR ---
CALLED DR. MAGAÑA AGAIN REGARDING CONSULT/ORDER FOR DIALYSIS. PRESIDENT & CEO TOOK MESSAGE. WAITING FOR DR. PATE TO PAGE BACK.
[2019-01-26] MEDS: ALBUTEROL/IPRATROPIUM 3 ML NEB NEB SCH ×4 (10:56→23:00)
[2019-01-26] MEDS: LORATADINE 10 MG TAB PO SCH (11:03)
[2019-01-26] MEDS: CEFTRIAXONE SOD 1 GM/NS 50 ML 50 ML IV SCH (11:03)
[2019-01-26] MEDS: GUAIFENESIN 600MG/DEXTROMETHORPHAN 30MG TABSR PO SCH ×2 (11:03→22:33)
[2019-01-26] MEDS: FAMOTIDINE 20 MG TAB PO SCH ×2 (11:03→16:07)
[2019-01-26] MEDS: AZITHROMYCIN 500MG/NS 250 ML 250 ML IV SCH (11:49)
--- NOTE | 2019-01-26 13:20 | NUR ---
DR. MAGAÑA ORDERED TO CALL [facility] TO SET UP PT FOR DIALYSIS AND COMPLETE CONSENT FOR HEMODIALYSIS.
[2019-01-26] MEDS: FLUTICASONE PROPIONATE NASAL SPRAY NS SCH ×2 (16:02→16:07)
[2019-01-26] MEDS: NITROGLYCERIN 2% OINT 1 GM PKT TOP SCH ×2 (16:07→19:38)
--- NOTE | 2019-01-26 18:30 | NUR ---
PT RECEIVING BREATHING TX. NOTIFIED PT THAT DIALYSIS WILL BE DONE BETWEEN [phone]. NO S/S OF DISTRESS. NC RUNNING AT 2/MIN.
--- NOTE | 2019-01-26 19:33 | NUR ---
Received patient in report. Patient is A&Ox3. Oxygen running at 2L, NC. R EJ 18g IV asymptomatic and intact. No pain reported at this time. No S&S of distress noted. Bed locked in lowest position, side rails up x2, call light in reach. Instructed to call for assistance.
--- NOTE | 2019-01-26 20:00 | NUR ---
Patient BP 168/80. Clonidine held due to hemodialysis scheduled at 2100. Will reassess BP after hemodialysis.
--- NOTE | 2019-01-26 20:39 | Consultation ---
DATE OF CONSULTATION: 01/26/2019 HISTORY OF PRESENT ILLNESS: This is a 48-year-old female, underlying history of end-stage renal disease, admitted with possible pneumonia and congestive heart failure. Renal consulted for management of kidney failure. She had been on dialysis on a Tuesday, Tuesday, Tuesday schedule. She has got a left forearm AV fistula. Also history of hypertension. FAMILY HISTORY: Significant for hypertension. ALLERGIES: NO APPARENT DRUG ALLERGIES. PAST HISTORY: She also has history of underlying type 2 diabetes. History of congestive heart failure, anemia, chronic kidney disease, secondary hyperparathyroidism. CURRENT MEDICATIONS: Azithromycin, ceftriaxone, received one time dose of vancomycin. She is on clonidine p.r.n., albuterol and Atrovent nebulizers, guaifenesin, hydralazine, received one time dose. She is on loratadine 10 mg daily. She is on Nitroglycerin p.r.n. She is on zolpidem, Ambien 5 mg p.o. at bedtime p.r.n. insomnia. She is on Pepcid 20 mg p.o. b.i.d. before meals. PHYSICAL EXAMINATION: GENERAL: Awake, alert, sitting up, in no apparent distress. VITAL SIGNS: Blood pressure of , pulse rate 90, afebrile, oxygen saturation 100% on 2 L nasal cannula. HEAD AND NECK: Cornea clear. Mucosa moist. LUNGS: Bibasilar rales. HEART: S1 and S2 audible. ABDOMEN: Otherwise soft, nontender. EXTREMITIES: Lower extremity examination shows trace edema. LABORATORY DATA: Lab shows white count 8.7, hemoglobin 8 with a potassium 5.1, bicarbonate 21, and creatinine 13.4. IMPRESSION AND PLAN: 1. End-stage renal disease, fluid overload. 2. Hyperkalemia. 3. Congestive heart failure. 4. Hypertension. 5. Possible underlying pneumonia. Plan on placing her on a renal diet, fluid restriction. Dialysis nurse contacted for dialysis to be done urgently. We will dialyze against an appropriately low potassium bath to correct the hyperkalemia. We will challenge her dry weight. Place her on fluid restriction here. Agree with choice of antibiotics. Please see orders. MD MIKE Mendez/[facility] /[id number]
[2019-01-26] MEDS ORDERED: SODIUM CHLORIDE 0.9% 1000ML 2,000 ML ONE (21:44)
[2019-01-27 00:48] VITALS: BP 169/92
[2019-01-27] MEDS: NITROGLYCERIN 2% OINT 1 GM PKT TOP SCH ×2 (00:59→06:08)
[2019-01-27] MEDS: ALBUTEROL/IPRATROPIUM 3 ML NEB NEB SCH ×2 (03:00→07:23)
--- NOTE | 2019-01-27 03:00 | NUR ---
Hemodialysis complete. 2.5L removed. Vital signs stable.
[2019-01-27 04:11] LABS: BASOPHILS % 0.4 % (0.0-1.0); EOSINOPHILS # (AUTO) 0.2 (0.0-0.4); EOSINOPHILS % 2.2 % (0.0-6.0); HEMATOCRIT 26.8 % (34.2-44.1); HEMOGLOBIN 9.1 g/dL (12.0-16.0); LYMPHOCYTES # (AUTO) 1.1 (1.0-3.2); LYMPHOCYTES % 16.5 % (18.0-39.1); MEAN CORPUSCULAR HEMOGLOBIN 28.5 pg (28-32); MONOCYTES # (AUTO) 0.5 (0.2-0.8); MONOCYTES % 7.2 % (4.4-11.3); NEUTROPHILS % 73.1 % (38.7-80.0); PLATELET COUNT 205 x10e3/uL (140-360); RED BLOOD COUNT 3.19 x10e6/uL (3.6-5.1); RED CELL DISTRIBUTION WIDTH 19.6 % (11.7-14.4)
[2019-01-27 04:13] LABS: ANION GAP 19.5 mmol/L (8-16); CALCIUM 9.4 mg/dL (8.4-10.2); CREATININE, SERUM 6.65 mg/dL (0.57-1.11); POTASSIUM 3.5 mmol/L (3.5-5.1)
[2019-01-27 04:34] LABS: THYROID STIMULATING HORMONE 0.528 uIU/mL (0.350-4.940)
[2019-01-27 04:37] LABS: B-TYPE NATRIURETIC PEPTIDE2 1002.2 pg/mL (0-100)
[2019-01-27 05:22] VITALS: BP 153/72
[2019-01-27] MEDS ORDERED: CEFTIN PO (06:39)
[2019-01-27] MEDS ORDERED: Fluticasone Propionate NS (06:39)
[2019-01-27] MEDS ORDERED: ZITHROMAX500 MG PO (06:39)
[2019-01-27] MEDS ORDERED: MUCINEX DM ER1 EACH PO (06:39)
[2019-01-27] MEDS ORDERED: LORATADINE10 MG PO (06:39)
[2019-01-27 07:29] VITALS: BP 154/74
--- NOTE | 2019-01-27 07:30 | NUR ---
REC'D PT AAOX3, NO S/S OF DISTRESS, UNLABORED BREATHING, EATING BREAKFAST. BED IN LOWEST POSITION, SIDE RAILS UP X2, AND CALL JOHNSON WITHIN REACH. POSSIBLE D/C TODAY.
[2019-01-27] MEDS: CEFTRIAXONE SOD 1 GM/NS 50 ML 50 ML IV SCH (08:30)
[2019-01-27] MEDS: FLUTICASONE PROPIONATE NASAL SPRAY NS SCH (08:30)
[2019-01-27] MEDS: FAMOTIDINE 20 MG TAB PO SCH (08:30)
[2019-01-27] MEDS: GUAIFENESIN 600MG/DEXTROMETHORPHAN 30MG TABSR PO SCH (08:31)
[2019-01-27] MEDS: LORATADINE 10 MG TAB PO SCH (08:31)
[2019-01-27 08:56] VITALS: BP 154/74
[2019-01-27] MEDS: AZITHROMYCIN 500MG/NS 250 ML 250 ML IV SCH (09:07)
--- NOTE | 2019-01-27 09:30 | NUR ---
NET SORTER CORINE SHANKAR PUT IN ORDER FOR D/C PATIENT. ASKED TO GET DISCHARGE CLEARANCE FROM DR. MAGAÑA. DR. KAT AZUL IS COVERING FOR DR. MAGAÑA. DR. KAT AZUL GAVE THE DISCHARGE CLEARANCE FOR PT TO GO HOME.
[2019-01-27 11:24] VITALS: BP 143/78
--- NOTE | 2019-01-27 13:00 | NUR ---
PT D/C VIA WHEELCHAIR BY RN. EJ IV REMOVED WITHOUT ANY COMPLICATIONS.
--- NOTE | 2019-01-29 03:24 | Discharge Summary ---
ADMISSION DIAGNOSES: Bronchopneumonia present on admission, hyperkalemia, respiratory distress with hypoxia secondary to fluid overload, hypertension complicated by end-stage renal disease, end-stage renal disease, anemia of chronic disease. DISCHARGE DIAGNOSES: Bronchopneumonia present on admission, hyperkalemia, respiratory distress with hypoxia secondary to fluid overload, hypertension complicated by end-stage renal disease, end-stage renal disease, anemia of chronic disease. HISTORY: The patient has a history of hypertension and end-stage renal disease with dialysis on Tuesday, Tuesday, and Tuesday. SURGICAL HISTORY: The patient has a surgical history of left AV fistula, right chest Port-A-Cath placement, and hysteroscopy. FAMILY HISTORY: The patient's mom, grandma, and sister have diabetes. HOSPITAL COURSE: A 48-year-old female complains of shortness of breath and nasal congestion that began Tuesday and by Tuesday, she was having orthopnea. She skipped her hemodialysis treatment on Tuesday and later that day on Tuesday, she was having a rattle in her chest and a dry cough. She denies fever, chills, and sick contacts. On admission, patient's EKG was normal sinus. Chest x-ray showed pulmonary vascular congestion. Underlying pneumonia cannot be excluded in the right infrahilar region. Dr. Hernandez was consulted for dialysis. The patient received the treatment on day of admission. She was started on IV Zithromax and Rocephin as well as Mucinex and neb treatments. The patient is feeling much better and will discharge home. She was given prescriptions for Zithromax, Ceftin, Flonase, Mucinex, and Claritin. She will resume all other home medicines. She will follow up with primary care in 1-2 weeks. Vital signs stable, patient afebrile. The patient understands discharge instructions and agrees to plan. Dictated by Sheba Vicente NP MD CISCO Frost/[facility] /[id number]
== END 2019-01-27 13:09 | disposition home or self-care (01) | DRG 193 ==
LOC: FSED 20:57 → ERHOLD 22:45 → MED/SURG3 23:59
PROVIDERS: ADMIT Internal Medicine; ATTEND Internal Medicine
PROC: 5A1D70Z Performance of Urinary Filtration, Intermittent, Less than 6 Hours Per Day (ICD-10-PCS; principal; 2019-01-26)
DX: J18.0 Bronchopneumonia, unspecified organism (principal); N18.6 End stage renal disease; I12.0 Hypertensive chronic kidney disease with stage 5 chronic kidney disease or end stage renal disease; I13.2 Hypertensive heart and chronic kidney disease with heart failure and with stage 5 chronic kidney disease, or end stage renal disease; N25.81 Secondary hyperparathyroidism of renal origin; E87.5 Hyperkalemia; Z99.2 Dependence on renal dialysis; I50.9 Heart failure, unspecified; E11.22 Type 2 diabetes mellitus with diabetic chronic kidney disease; R06.03 Acute respiratory distress; R09.02 Hypoxemia; Z83.3 Family history of diabetes mellitus
CPT/HCPCS: 36415; 71046; 80048; 80053; 82553; 82948; 83036; 83735; 83880; 84443; 84484; 85025; 86704; 86705; 86707; 86850; 86900; 87040; 87340; 87350; 87400; 90962; 93005; 94640; 99284; J0360; J0456; J0696; J1200; J2405; J3370; J7030; J7050; J7799

== ENCOUNTER 2019-03-25 07:41 | Inpatient (IN) | payer BC, MEDICARE ==
[~2019-03-25] VITALS: Ht 157.5 cm; Wt 89.9 kg
[2019-03-25] VITALS (10 sets, daily range): BP systolic 106–143; BP diastolic 63–98
[~2019-03-25 07:41] MED LIST: AMLODIPINE BESY10 MG PO; CEFTIN PO; DOXEPIN HCL25 MG PO; Fluticasone Propionate NS; LORATADINE10 MG PO; METOPROLOL SUCC50 MG PO; MUCINEX DM ER1 EACH PO; SENSIPAR30 MG PO; VITAMIN RENAL; ZITHROMAX500 MG PO
--- OUTSIDE RECORDS SUMMARY | 2019-03-25 07:44 | XMS REPORT | Clinical Summary ---
Author Author JULIO C [facility] Address Unknown Phone Unavailable Care Team Providers Care Spool Maker Name Role Phone Eyad Hernandez MD PCP [...] Transplant Beba Newell Follow-up 05/08/2018 Telephone Transplant Nayla Reeves MD Dave, Nichole Rooney MD Fever, unspecified fever cause (Primary Dx); ESRD (end stage renal disease) on dialysis (HCC); Leukocytosis, unspecified type; Tachycardia 04/06/2018 [facility] General Internal Medicine - Encounter 04/11/2018 after 03/24/2018 Family History Medical History Relation Name Comments [...] ACID, VENOUS STAT 04/06/2018 4:10 PM CDT after 03/24/2018 Results * CARDIAC CATH REPORT - SCAN (04/12/2018 1:22 PM CDT) Narrative Performed At * Catheter Tip Culture (04/10/2018 2:21 PM CDT) Result >15 Colonies On Direct Plate [facility] [employer] Pseudomonas aeruginosa (A) LABORATORY Specimen Other Antibiotic Method Susceptibility Organism Cefepime <=1: Susceptible Pseudomonas aeruginosa Gentamicin <=1: Susceptible Pseudomonas aeruginosa Levofloxacin 0.5: Susceptible Pseudomonas aeruginosa Meropenem 0.5: Susceptible Pseudomonas aeruginosa Piperacillin + Tazobactam <=4: Susceptible Pseudomonas aeruginosa Tobramycin <=1: Susceptible Pseudomonas aeruginosa Performing Organization Address City/State/Zipcode Phone Number [facility] [address] [place] [address] * IR Tunneled Catheter Removal (04/10/2018 2:05 PM CDT) Specimen Narrative Performed At FINAL REPORT [facility] History: End-stage renal disease, possibly infected catheter [...] the patient's tunneled right-sided dialysis catheter. Signed: Blaire Sen MD Report Verified Date/Time:04/10/2018 15:28:49 Reading Location: [facility] Radiology Reading Room Procedure Note Interface, External [...] the patient's tunneled right-sided dialysis catheter. Signed: Blaire Sen MD Report Verified Date/Time: 04/10/2018 15:28:49 Reading Location: [facility] Radiology Reading Room Performing Organization Address City/[facility]/Zipcode Phone Number RIS * Hepatitis B surface antibody (04/10/2018 8:43 AM CDT) Hep B S Ab <8.0 <8.0 mIU/mL [facility] Specimen Blood Performing Organization Address City/[facility]/Zipcode Phone Number [facility] [address] [place] [address] [facility] * Blood culture (04/08/2018 12:18 PM CDT) Only the most recent of 4 results within the time period is included. Result No growth in 5 days [facility] Specimen Blood Performing Organization Address City/State/Zipcode Phone Number [facility] [address] [place] [address] * Manual Differential (04/08/2018 10:13 AM CDT) [...] (manual) 0.09 0.00 - 0.50 K/L [facility] Total Counted 100 [facility] Vacuolated Neutrophils Present [facility] Large Platelet Present [facility] Anisocytosis 1+ few [facility] Specimen Blood Performing Organization Address City/[facility]/Zipcode Phone Number [facility] [address], [place] [phone] * CBC with platelet count + automated diff (04/08/2018 10:13 AM CDT) Only the most recent of 3 results within the time period is included. WBC 9.2 4.0 - 10.0 K/L [facility] RBC 3.33 (L) 4.00 - 5.00 M/L [facility] Hemoglobin 9.5 (L) 12.0 - 15.0 GM/DL [facility] Hematocrit 28.5 (L) 36.0 - 45.0 % [facility] MCV 85.6 82.0 - 99.0 fL [facility] MCH 28.4 27.0 - 33.0 pg [facility] MCHC 33.1 32.0 - 36.0 GM/DL [facility] RDW 18.6 (H) 10.3 - 14.2 % [facility] Platelets 191 150 - 430 K/CU MM [facility] MPV 9.2 6.5 - 10.5 fL [facility] nRBC 0 0 - 0 /100 WBC [facility] Specimen Blood Performing Organization Address City/[facility]/Zipcode Phone Number [facility] [address], [place] [address] * Basic Metabolic Panel (04/08/2018 10:13 AM CDT) Only the most recent of 2 results within the time period is included. Sodium 134 (L) 135 - 148 meq/L [facility] Potassium 4.6 3.6 - 5.5 meq/L [facility] Chloride 97 (L) 98 - 106 meq/L [facility] CO2 22 20 - 29 meq/L [facility] BUN 39 (H) 10 - 26 mg/dL [facility] Creatinine 8.47 (H) 0.50 - 1.20 mg/dL [facility] Glucose 82 70 - 110 mg/dL [facility] Calcium 8.9 8.5 - 10.5 mg/dL [facility] EGFR 6Comment: ESTIMATED GFR IS NOT mL/min/1.73 sq m [facility]ATIN[facility] CLEARANCE IN PREDICTING GLOMERULAR FILTRATION RATE. ESTIMATED GFR IS NOT APPLICABLE FOR DIALYSIS PATIENTS. Specimen Blood Performing Organization Address [facility] Phone Number [facility] [address] [place] [phone] * Hepatitis B surface antigen (04/07/2018 3:40 PM CDT) hepatitis B Surface Ag Nonreactive Nonreactive [facility] Specimen Blood Performing Organization Address [facility] Phone Number [facility] [address] [place] [address] * Hemoglobin A1c (04/07/2018 3:56 AM CDT) Hemoglobin A1C 5.2 4.3 - 6.1 % [facility] Specimen Blood Performing Organization Address [facility] Phone Number [facility] [address] [place] [phone] * Lipid panel (04/07/2018 3:56 AM CDT) Triglycerides 124 mg/dL [facility] Cholesterol 163 mg/dL [facility] HDL 40 mg/dL [facility] LDL Calculated 98 mg/dL [facility] Specimen Blood Narrative Performed At Triglyceride Reference Range: [facility] Low Risk <150 LAB[facility]ATORY [id number] High Risk 200-499 Very High Risk>=500 Cholesterol Reference Range: Low Risk <200 [id number] High Risk>240 HDL Cholesterol Reference Range: Low Risk >=60 High Risk <40 LDL Cholesterol Reference Range: Optimal<100 Near [id number] Very High >=190 Performing Organization Address [facility] Phone Number [facility] [address] [place] [phone] * CRITICAL CARE (04/06/2018 7:19 PM CDT) Narrative Performed At Nayla Reeves MD 04/06/20187:19 PM Critical Care Performed by: NAYLA REEVES Authorized by: NAYLA REEVES Total critical care time: 30 minutes [...] CDT) Specimen Narrative Performed At FINAL REPORT [facility] TECHNIQUE: Frontal chest radiograph dated 04/06/2018. CLINICAL HISTORY: Back pain , fever COMPARISON STUDY: Chest radiograph dated 01/24/2018 IMPRESSION: Right-sided vascular line is unchanged. Lungs are clear. No pleural effusion or pneumothorax. Cardiomediastinal silhouette is normal in size. No pulmonary edema. No fracture. Signed: Nilsa Moya MD Report Verified Date/Time:04/06/2018 16:31:49 Reading Location: [facility] Radiology Reading Room Procedure Note Interface, External Ris In - 04/06/2018 4:34 PM CDT FINAL REPORT TECHNIQUE: Frontal chest radiograph dated 04/06/2018. CLINICAL HISTORY: Back pain , fever COMPARISON STUDY: Chest radiograph dated 01/24/2018 IMPRESSION: Right-sided vascular line is unchanged. Lungs are clear. No pleural effusion or pneumothorax. Cardiomediastinal silhouette is normal in size. No pulmonary edema. No fracture. Signed: Nilsa Moya MD Report Verified Date/Time: 04/06/2018 16:31:49 Reading Location: [facility] Radiology Reading Room Performing Organization Address City/[facility]/Zipcode Phone Number [facility] * Urinalysis w/Microscopic (04/06/2018 4:11 PM CDT) Color, UA Yellow [facility] Clarity, UA Clear [facility] Specific [place], UA 1.015 1.001 - 1.035 [facility] pH, UA 8.0 5.0 - 8.0 [facility] Protein, UA 100 mg/dL (A) Negative [facility] Glucose, UA 100 mg/dL (A) Negative [facility] Ketones, UA Negative Negative [facility] Bilirubin, UA Negative Negative [facility] Blood, UA Small (A) Negative [facility] Nitrite, UA Negative Negative [facility] Leukocytes, UA Negative Negative [facility] Urobilinogen, UA 0.2 0.2 - 1.0 mg/dL [facility] Bacteria, UA Few [facility] RBC, UA <5 /HPF [facility] WBC, UA <5 /HPF [facility] SQUAMOUS EPITHELIAL <5 /HPF [facility] Specimen Source [facility] Specimen Urine Performing Organization Address [facility] Phone Number [facility] [address], [place] [phone] * Prothrombin time/INR (04/06/2018 4:11 PM CDT) Protime 11.4 9.3 - 12.0 sec [facility] INR 1.1 <=5.9 [facility] Specimen Blood Narrative Performed At RECOMMENDED COUMADIN/WARFARIN INR THERAPY RANGES [facility] STANDARD DOSE: 2.0 - 3.0 Includes: PROPHYLAXIS for venous thrombosis, LABORATORY systemic embolization; TREATMENT for venous thrombosis and/or pulmonary embolus. HIGH RISK: Target INR is 2.5-3.5 for patients with mechanical heart valves. Final Information (Auto Output) Final Information (Auto Output) Performing Organization Address [facility] Phone Number [facility] [address], [place] [address] * Lactic acid, venous, whole blood (04/06/2018 4:10 PM CDT) Lactate, Venous 1.2Comment: Specimen slightly 0.5 - 2.2 mmol/L [facility] hemolyzed [facility] Specimen Blood Narrative Performed At Effective 01/28/2016: Units/Reference Range Change [facility] New: 0.5-2.2 mmol/LPrevious: 5-18 mg/dL LABORATORY Performing Organization Address [facility] Phone Number [facility] [address] [place] [phone] * Phosphorus (04/06/2018 4:10 PM CDT) Phosphorus 3.9Comment: Specimen slightly 2.5 - 4.5 mg/dL [facility] Specimen Blood Performing Organization Address [facility] Phone Number [facility] [address] [place] [address] * Magnesium (04/06/2018 4:10 PM CDT) Magnesium 2.1Comment: Specimen slightly 1.5 - 3.0 mg/dL [facility] Specimen Blood Performing Organization Address [facility] Number [facility] [address] [place] [address] * Lipase (04/06/2018 4:10 PM CDT) Lipase 15 6 - 51 U/L [facility] Specimen Blood Performing Organization Address [facility] Number [facility] [address] [place] [address] * Comprehensive metabolic panel (04/06/2018 4:10 PM CDT) Protein, Total 9.3 (H)Comment: Specimen 6.0 - 8.5 gm/dL [facility] slightly hemolyzed [facility] Albumin 3.9Comment: Specimen slightly 3.5 - 5.0 g/dL [facility] Alkaline Phosphatase 58 30 - 115 U/L [facility] Total Bilirubin 0.3Comment: Specimen slightly 0.1 - 1.2 mg/dL [facility] Sodium 132 (L) 135 - 148 meq/L [facility] Potassium 5.4Comment: Specimen slightly 3.6 - 5.5 meq/L [facility] Chloride 92 (L) 98 - 106 meq/L [facility] CO2 21 20 - 29 meq/L [facility] BUN 35 (H) 10 - 26 mg/dL [facility] Creatinine 9.03 (H)Comment: Specimen 0.50 - 1.20 mg/dL [facility] slightly hemolyzed [facility] Glucose 95 70 - 110 mg/dL [facility] Calcium 9.0 8.5 - 10.5 mg/dL [facility] AST 24Comment: Specimen slightly 5 - 40 U/L [facility] hemolyzed [facility] ALT 20Comment: Specimen slightly 5 - 50 U/L [facility] hemolyzed [facility] EGFR 6Comment: ESTIMATED GFR IS NOT mL/min/1.73 sq m [facility] CREATININE [facility] CLEARANCE IN PREDICTING GLOMERULAR FILTRATION RATE. ESTIMATED GFR IS NOT APPLICABLE FOR DIALYSIS PATIENTS. Specimen Blood Performing Organization Address City/State/Zipcode Phone Number [facility] [address] [place] [address] after 03/24/2018 Insurance Payer Benefit Subscriber ID Type Phone Address Plan / Group [employer]BS OS xxxxxxxxxxxxxxx PPO [phone] [id number] POS/PPO/[place] [address] O Advance Directives For more information, please contact: [facility] [address] [place] [address] Date Inactivated Comments Code Status [...]
--- OUTSIDE RECORDS SUMMARY | 2019-03-25 07:45 | XMS REPORT | Continuity of Care Document ---
Author Author Getting-[employer] Address Unknown Phone Unavailable Care Team Providers Care Core Rescuer Name Role Phone Twitter Unavailable Unavailable Problems Problem Status Onset Date Classification Date Reported Comments Source Hypertensive chronic kidney disease with stage 5 chronic kidney disease or end stage renal disease 01/04/2018 04/04/2018 [facility] NA Active 12/21/2017 [facility] N18.6 Active 12/21/2017 [facility] End stage renal disease 04/04/2018 [facility] Anemia in chronic kidney disease 04/04/2018 [facility] Supraventricular tachycardia 04/04/2018 [facility] Dependence on renal dialysis 04/04/2018 [facility] Hyperlipidemia, unspecified 04/04/2018 [facility] Medications Medication Details Route Status Patient Instructions Ordering Provider Order Date [facility] phenylephrine (ANES) Route: IV, Drug form: INJ, ONCE, Stop date: 12/27/17 10:49:00 CDT Inactive 12/27/2017 [facility] ondansetron (ANES) Route: IV, Drug form: INJ, ONCE, Stop date: 12/27/17 10:49:00 CDT Inactive 12/27/2017 [facility] propofol (ANES) Route: IV, Drug form: INJ, ONCE, Stop date: 12/27/17 10:24:00 CDT Inactive 12/27/2017 [facility] dexamethasone (ANES) Route: IV, Drug form: INJ, ONCE, Stop date: 12/27/17 10:24:00 CDT Inactive 12/27/2017 [facility] fentaNYL (ANES) Route: IV, Drug form: INJ, ONCE, Stop date: 12/27/17 10:24:00 CDT Inactive 12/27/2017 [facility] midazolam (ANES) Route: IV, Drug form: SOLN, ONCE, Stop date: 12/27/17 10:24:00 CDT Inactive 12/27/2017 [facility] Dexamethasone 4 mg, 1 mL, Route: IVP, Drug form: INJ, ONCE, Dosing Weight 77.727, kg, PRN Nausea & Vomiting, Start date: 12/27/17 9:50:00 CDTNotes: Concentration: 4mg/ml Inactive 12/27/2017 [facility] Ondansetron 4 mg, 2 mL, Route: IVP, Drug form: INJ, ONCE, Dosing Weight 77.727, kg, PRN Nausea & Vomiting, Start date: 12/27/17 9:50:00 CDTNotes: (Same as: Zofran) MEDICATION WASTE Product Size: 4 mg Product Wasted: ___ mg Inactive 12/27/2017 [facility] Fentanyl 25 microgram, 0.5 mL, Route: IVP, Drug form: INJ, Q5Min, Dosing Weight 77.727, kg, PRN Pain Score 4-6, Priority: Routine, Start date: 12/27/17 9:50:00 CDT, Duration: 4 doses or times, Stop date: Limited # of timesNotes: (Same as: Sublimaze) Preservative free. Inactive 12/27/2017 [facility] Flumazenil 0.2 mg, 2 mL, Route: IVP, Drug form: INJ, PRN, Dosing Weight 77.727, kg, PRN Benzodiazepine Reversal, Initial dose, Start date: 12/27/17 9:50:00 CDT, Duration: 30 day, Stop date: 01/26/18 9:49:00 CDT Notes: (Same as: Romazicon) Inactive 12/27/2017 [facility] Naloxone 0.4 mg, 1 mL, Route: IVP, Drug form: INJ, Q2MIN, Dosing Weight 77.727, kg, PRN Narcotic Reversal, Start date: 12/27/17 9:50:00 CDT, Duration: 8 doses or times, Stop date: Limited # of timesNotes: Same as Narcan Inactive 12/27/2017 [facility] Acetaminophen 1,000 mg, 100 mL, Route: IV, Drug form: INJ, ONCE, Dosing Weight 77.727, kg, PRN Pain Score 1-3, Start date: 12/27/17 9:50:00 CDTNotes: Infuse over 15 minutes Do not exceed 4gm/day of acetaminophen MEDICATION WASTE Product Size: 1000 mg Product Wasted: ___ mg Inactive 12/27/2017 [facility] Hydralazine 10 mg, 0.5 mL, Route: IVP, Drug form: INJ, Q20Min, Dosing Weight 77.727, kg, PRN Elevated BP, Start date: 12/27/17 9:50:00 CDT, Duration: 2 doses or times, Stop date: Limited # of timesNotes: (Same as: Apresoline) Push over 5 minutes Inactive 12/27/2017 [facility] Labetalol 10 mg, 2 mL, Route: IVP, Drug form: INJ, Q5Min, Dosing Weight 77.727, kg, PRN Elevated BP, Start date: 12/27/17 9:50:00 CDT, Duration: 5 doses or times, Stop date: Limited # of times Inactive 12/27/2017 [facility] vancomycin (ANES) 1000 mg Route: IV, Drug form: INJ, Start date: 12/27/17 9:48:00 CDT, Stop date: 12/27/17 10:48:00 CDT Inactive 12/27/2017 [facility] Sodium Chloride 0.9% IV (ANES) 500 mL Route: IV, Total Volume: 500, Start date: 12/27/17 9:41:00 CDT, Stop date: 12/27/17 10:41:00 CDT Inactive 12/27/2017 [facility] acetaminophen-codeine #3 2 tab, Route: PO, Drug Form: TAB, Dosing Weight 77.727, kg, Q4H, PRN Pain Score 4-6, Start date: 12/27/17 8:22:00 CDT, Duration: 30 day, Stop date: 01/26/18 8:21:00 CDTNotes: Do not exceed 4gm/day of acetaminophen. (Same as: Tylenol with Codeine # 3) Inactive 12/27/2017 [facility] Vancomycin 1,000 mg, Route: IVPB, PRE [...] mg Product Wasted: ___ mg Inactive 12/27/2017 [facility] Colchicine 0.6 MG Oral Tablet 0.6 mg=1 tab, PO, Daily, PRN gout flare ups Active 12/26/2017 [facility] metoprolol tartrate 100 mg oral tablet 100 mg=1 tab, PO, BID, 0 Refill(s) Active 12/26/2017 [facility] amLODIPine 10 mg oral tablet 10 mg=1 tab, PO, BID Active 12/26/2017 [facility] RenaPlex oral tablet 1 tab, PO, Daily Active 12/26/2017 [facility] Allergies, Adverse Reactions, Alerts Substance Category Reaction Severity Reaction type Status Date Reported Comments Source NKFA Assertion Food allergy Active [facility] Immunizations No Data Provided for This Section Results Order Name Results Value Reference Range Date Interpretation Comments Source CHEM PANEL eGFR 8 12/27/2017 Result Comment: The eGFR is calculated [...] should be multiplied by the estimated BMI. [facility] CHEM PANEL POC Carbon Dioxide 29 24 - 32 12/27/2017 [facility] CHEM PANEL POC Creatinine 6.3 0.5 - 1.4 12/27/2017 [facility] CHEM PANEL POC BUN 27 7 - 22 12/27/2017 [facility] CHEM PANEL POC Glucose 96 70 - 99 12/27/2017 [facility] CHEM PANEL POC Ion Ca 1.04 1.05 - 1.25 12/27/2017 [facility] CHEM PANEL POC Sodium 137 135 - 145 12/27/2017 [facility] CHEM PANEL POC Hematocrit 34.0 36.0 - 48.0 12/27/2017 [facility] CHEM PANEL POC Hemoglobin 11.6 12.0 - 16.0 12/27/2017 [facility] CHEM PANEL POC AGAP 16.0 10.0 - 20.0 12/27/2017 [facility] CHEM PANEL POC Chloride 97 95 - 109 12/27/2017 [facility] CHEM PANEL POC Potassium 3.9 3.5 - 5.1 12/27/2017 [facility] CHEM PANEL eGFR 9 12/27/2017 Result Comment: The eGFR is calculated [...] should be multiplied by the estimated BMI. [facility] CHEM PANEL Calcium Lvl 8.3 8.5 - 10.5 12/27/2017 [facility] CHEM PANEL CO2 28 24 - 32 12/27/2017 [facility] CHEM PANEL Creatinine Lvl 6.00 0.50 - 1.40 12/27/2017 [facility] CHEM PANEL Glucose Lvl 92 70 - 99 12/27/2017 [facility] CHEM PANEL BUN 26 7 - 22 12/27/2017 [facility] CHEM PANEL Potassium Lvl 3.8 3.5 - 5.1 12/27/2017 [facility] CHEM PANEL Chloride Lvl 99 95 - 109 12/27/2017 [facility] CHEM PANEL Sodium Lvl 137 135 - 145 12/27/2017 [facility] CHEM PANEL AGAP 13.8 10.0 - 20.0 12/27/2017 [facility] HEMATOLOGY PT 13.3 12.0 - 14.7 12/27/2017 [facility] HEMATOLOGY PTT 80.0 22.9 - 35.8 12/27/2017 [facility] HEMATOLOGY INR 1.01 0.85 - 1.17 12/27/2017 [facility] HEMATOLOGY WBC 7.7 3.7 - 10.4 12/27/2017 [facility] HEMATOLOGY RBC 3.69 4.20 - 5.40 12/27/2017 [facility] Hct 32.0 36.0 - 48.0 12/27/2017 [facility] Hgb 10.5 12.0 - 16.0 12/27/2017 [facility] MCV 86.7 80.0 - 98.0 12/27/2017 [facility] MCH 28.5 27.0 - 31.0 12/27/2017 [facility] RDW 18.1 11.5 - 14.5 12/27/2017 [facility] Platelet 186 133 - 450 12/27/2017 [facility] MCHC 32.9 32.0 - 36.0 12/27/2017 [facility] MPV 8.6 7.4 - 10.4 12/27/2017 [facility] Monocytes # 1.0 0.0 - 0.8 12/27/2017 [facility] Lymphocytes # 1.4 1.0 - 5.5 12/27/2017 [facility] HEMATOLOGY Segs-Bands # 4.9 1.5 - 8.1 12/27/2017 [facility] Basophils 0.8 0.0 - 1.0 12/27/2017 [facility] Monocytes 13.4 2.0 - 12.0 12/27/2017 [facility] Lymphocytes 18.6 20.0 - 40.0 12/27/2017 [facility] Segs 63.1 45.0 - 75.0 12/27/2017 [facility] Eosinophils 4.1 0.0 - 4.0 12/27/2017 [facility] Basophils # 0.1 0.0 - 0.2 12/27/2017 [facility] Eosinophils # 0.3 0.0 - 0.5 12/27/2017 [facility] URINE CHEM U Preg Negative (12/27/17 6:48 AM) Negative 12/27/2017 [facility] Pathology Reports No Data Provided for This Section Diagnostic Reports Report Value Date Source Chest 1view DX XR CHEST 1 VIEW HISTORY: Abnormal chest sounds - ESRD / A-V FISTULA CREATION. COMPARISON: None. FINDINGS: Right jugular dialysis catheter, tip positioned over the lower 3rd of the SVC near the cavoatrial junction. The lungs are clear. The heart and vascular markings are normal. No pleural abnormality. The bones are intact. IMPRESSION: No active process. SL: [id number] 12/27/2017 [facility] Consultation Notes No Data Provided for This Section Discharge Summaries No Data Provided for This Section History and Physicals No Data Provided for This Section Vital Signs Vital Sign Value Date Comments Source Systolic (mm Hg) 120 12/27/2017 [facility] Diastolic (mm Hg) 78 12/27/2017 [facility] Respitory Rate 14 12/27/2017 [facility] Systolic (mm Hg) 104 12/27/2017 [facility] Diastolic (mm Hg) 67 12/27/2017 [facility] Respitory Rate 16 12/27/2017 [facility] Systolic (mm Hg) 119 12/27/2017 [facility] Diastolic (mm Hg) 73 12/27/2017 [facility] Respitory Rate 14 12/27/2017 [facility] Temperature Oral (F) 97.8 F 12/27/2017 [facility] Weight 77.727 12/26/2017 [facility] Height 160.02 cm 12/26/2017 [facility] BMI Calculated 30.35 12/26/2017 [facility] Encounters Location Location Details Encounter Type Encounter Number Reason For Visit Attending Provider ADM Date DC Date Status Source [facility] Day Surgery [id number] Josemanuel Mercedes 12/27/2017 12/27/2017 [facility] Procedures Procedure Code Date Perfomer Comments Source Central line insertion<sup>1</sup> [id number] 11/24/2017 R IJ [facility] Hysteroscopy [id number] 09/26/2001 [facility] Assessment and Plan No Data Provided for This Section Plan of Care No Data Provided for This Section Social History Social History Date Source Social History TypeResponse Substance Abuse Use: None. Exercise Exercise duration: 30. Exercise frequency: Daily. Self assessment: Good condition. Exercise type: Walking. Alcohol Current, Type Wine, Liquor. Frequency: 1-2 times per week. Smoking Status Never smoker; Exposure to Tobacco Smoke None; Cigarette Smoking Last 365 Days No; Reg Smoking Cessation Counseling Yes entered on: 12/26/17 12/26/2017 [facility] Family History No Data Provided for This Section Advance Directives No Data Provided for This Section Functional Status No Data Provided for This Section
--- NOTE | 2019-03-25 07:50 | NUR ---
PT TACHYPNENIC ON ARRIVAL AND ARGUMENTATIVE AND REFUSED GOWN OR TO CHANGE. DID NOT WANT TO SIT ONTO STRETCHER. PT MADE STATEMENT SHE DOES NOT WANT TO STAY OR BE ADMITTED.
--- OUTSIDE RECORDS SUMMARY | 2019-03-25 07:50 | XMS REPORT | Continuity of Care Document ---
Author Author [employer] Address Unknown Phone Unavailable Care Team Providers Care Clay Mixer Name Role Phone [employer] Unavailable Unavailable Problems Problem Status Onset Date Classification Date Reported Comments Source Hypertensive chronic kidney disease with stage 5 chronic kidney disease or end stage renal disease 01/04/2018 04/04/2018 [facility] NA Active 12/21/2017 [facility] N18.6 Active 12/21/2017 [facility] End stage renal disease 04/04/2018 [facility] Anemia in chronic kidney disease 04/04/2018 [facility] Supraventricular tachycardia 04/04/2018 [facility] Dependence on renal dialysis 04/04/2018 [facility] Hyperlipidemia, unspecified 04/04/2018 [facility] Medications Medication Details Route Status Patient Instructions Ordering Provider Order Date [facility] phenylephrine (ANES) Route: IV, Drug form: INJ, ONCE, Stop date: 12/27/17 10:49:00 CDT Inactive 12/27/2017 [facility] ondansetron (ANES) Route: IV, Drug form: INJ, ONCE, Stop date: 12/27/17 10:49:00 CDT Inactive 12/27/2017 [facility] propofol (ANES) Route: IV, Drug form: INJ, ONCE, Stop date: 12/27/17 10:24:00 CDT Inactive 12/27/2017 [facility] dexamethasone (ANES) Route: IV, Drug form: INJ, ONCE, Stop date: 12/27/17 10:24:00 CDT Inactive 12/27/2017 [facility] fentaNYL (ANES) Route: IV, Drug form: INJ, ONCE, Stop date: 12/27/17 10:24:00 CDT Inactive 12/27/2017 [facility] midazolam (ANES) Route: IV, Drug form: SOLN, ONCE, Stop date: 12/27/17 10:24:00 CDT Inactive 12/27/2017 [facility] Dexamethasone 4 mg, 1 mL, Route: IVP, Drug form: INJ, ONCE, Dosing Weight 77.727, kg, PRN Nausea & Vomiting, Start date: 12/27/17 9:50:00 CDTNotes: Concentration: 4mg/ml Inactive 12/27/2017 [facility] Ondansetron 4 mg, 2 mL, Route: IVP, Drug form: INJ, ONCE, Dosing Weight 77.727, kg, PRN Nausea & Vomiting, Start date: 12/27/17 9:50:00 CDTNotes: (Same as: Zofran) MEDICATION WASTE Product Size: 4 mg Product Wasted: ___ mg Inactive 12/27/2017 [facility] Fentanyl 25 microgram, 0.5 mL, Route: IVP, Drug form: INJ, Q5Min, Dosing Weight 77.727, kg, PRN Pain Score 4-6, Priority: Routine, Start date: 12/27/17 9:50:00 CDT, Duration: 4 doses or times, Stop date: Limited # of timesNotes: (Same as: Sublimaze) Preservative free. Inactive 12/27/2017 [facility] Flumazenil 0.2 mg, 2 mL, Route: IVP, Drug form: INJ, PRN, Dosing Weight 77.727, kg, PRN Benzodiazepine Reversal, Initial dose, Start date: 12/27/17 9:50:00 CDT, Duration: 30 day, Stop date: 01/26/18 9:49:00 CDT Notes: (Same as: Romazicon) Inactive 12/27/2017 [facility] Naloxone 0.4 mg, 1 mL, Route: IVP, Drug form: INJ, Q2MIN, Dosing Weight 77.727, kg, PRN Narcotic Reversal, Start date: 12/27/17 9:50:00 CDT, Duration: 8 doses or times, Stop date: Limited # of timesNotes: Same as Narcan Inactive 12/27/2017 [facility] Acetaminophen 1,000 mg, 100 mL, Route: IV, Drug form: INJ, ONCE, Dosing Weight 77.727, kg, PRN Pain Score 1-3, Start date: 12/27/17 9:50:00 CDTNotes: Infuse over 15 minutes Do not exceed 4gm/day of acetaminophen MEDICATION WASTE Product Size: 1000 mg Product Wasted: ___ mg Inactive 12/27/2017 [facility] Hydralazine 10 mg, 0.5 mL, Route: IVP, Drug form: INJ, Q20Min, Dosing Weight 77.727, kg, PRN Elevated BP, Start date: 12/27/17 9:50:00 CDT, Duration: 2 doses or times, Stop date: Limited # of timesNotes: (Same as: Apresoline) Push over 5 minutes Inactive 12/27/2017 [facility] Labetalol 10 mg, 2 mL, Route: IVP, Drug form: INJ, Q5Min, Dosing Weight 77.727, kg, PRN Elevated BP, Start date: 12/27/17 9:50:00 CDT, Duration: 5 doses or times, Stop date: Limited # of times Inactive 12/27/2017 [facility] vancomycin (ANES) 1000 mg Route: IV, Drug form: INJ, Start date: 12/27/17 9:48:00 CDT, Stop date: 12/27/17 10:48:00 CDT Inactive 12/27/2017 [facility] Sodium Chloride 0.9% IV (ANES) 500 mL Route: IV, Total Volume: 500, Start date: 12/27/17 9:41:00 CDT, Stop date: 12/27/17 10:41:00 CDT Inactive 12/27/2017 [facility] acetaminophen-codeine #3 2 tab, Route: PO, Drug Form: TAB, Dosing Weight 77.727, kg, Q4H, PRN Pain Score 4-6, Start date: 12/27/17 8:22:00 CDT, Duration: 30 day, Stop date: 01/26/18 8:21:00 CDTNotes: Do not exceed 4gm/day of acetaminophen. (Same as: Tylenol with Codeine # 3) Inactive 12/27/2017 [facility] Vancomycin 1,000 mg, Route: IVPB, PRE OP, [...] mg Product Wasted: ___ mg Inactive 12/27/2017 [facility] Colchicine 0.6 MG Oral Tablet 0.6 mg=1 tab, PO, Daily, PRN gout flare ups Active 12/26/2017 [facility] metoprolol tartrate 100 mg oral tablet 100 mg=1 tab, PO, BID, 0 Refill(s) Active 12/26/2017 [facility] amLODIPine 10 mg oral tablet 10 mg=1 tab, PO, BID Active 12/26/2017 [facility] RenaPlex oral tablet 1 tab, PO, Daily Active 12/26/2017 [facility] Allergies, Adverse Reactions, Alerts Substance Category Reaction Severity Reaction type Status Date Reported Comments Source NKFA Assertion Food allergy Active [facility] Immunizations No Data Provided for This Section [...] should be multiplied by the estimated BMI. [facility] CHEM PANEL POC Carbon Dioxide 29 24 - 32 12/27/2017 [facility] CHEM PANEL POC Creatinine 6.3 0.5 - 1.4 12/27/2017 [facility] CHEM PANEL POC BUN 27 7 - 22 12/27/2017 [facility] CHEM PANEL POC Glucose 96 70 - 99 12/27/2017 [facility] CHEM PANEL POC Ion Ca 1.04 1.05 - 1.25 12/27/2017 [facility] CHEM PANEL POC Sodium 137 135 - 145 12/27/2017 [facility] CHEM PANEL POC Hematocrit 34.0 36.0 - 48.0 12/27/2017 [facility] CHEM PANEL POC Hemoglobin 11.6 12.0 - 16.0 12/27/2017 [facility] CHEM PANEL POC AGAP 16.0 10.0 - 20.0 12/27/2017 [facility] CHEM PANEL POC Chloride 97 95 - 109 12/27/2017 [facility] CHEM PANEL POC Potassium 3.9 3.5 - 5.1 12/27/2017 [facility] CHEM PANEL eGFR 9 12/27/2017 Result Comment: [...] should be multiplied by the estimated BMI. [facility] CHEM PANEL Calcium Lvl 8.3 8.5 - 10.5 12/27/2017 [facility] CHEM PANEL CO2 28 24 - 32 12/27/2017 [facility] CHEM PANEL Creatinine Lvl 6.00 0.50 - 1.40 12/27/2017 [facility] CHEM PANEL Glucose Lvl 92 70 - 99 12/27/2017 [facility] CHEM PANEL BUN 26 7 - 22 12/27/2017 [facility] CHEM PANEL Potassium Lvl 3.8 3.5 - 5.1 12/27/2017 [facility] CHEM PANEL Chloride Lvl 99 95 - 109 12/27/2017 [facility] CHEM PANEL Sodium Lvl 137 135 - 145 12/27/2017 [facility] CHEM PANEL AGAP 13.8 10.0 - 20.0 12/27/2017 [facility] HEMATOLOGY PT 13.3 12.0 - 14.7 12/27/2017 [facility] HEMATOLOGY PTT 80.0 22.9 - 35.8 12/27/2017 [facility] HEMATOLOGY INR 1.01 0.85 - 1.17 12/27/2017 [facility] HEMATOLOGY WBC 7.7 3.7 - 10.4 12/27/2017 [facility] HEMATOLOGY RBC 3.69 4.20 - 5.40 12/27/2017 [facility] Hct 32.0 36.0 - 48.0 12/27/2017 [facility] Hgb 10.5 12.0 - 16.0 12/27/2017 [facility] MCV 86.7 80.0 - 98.0 12/27/2017 [facility] MCH 28.5 27.0 - 31.0 12/27/2017 [facility] RDW 18.1 11.5 - 14.5 12/27/2017 [facility] Platelet 186 133 - 450 12/27/2017 [facility] MCHC 32.9 32.0 - 36.0 12/27/2017 [facility] MPV 8.6 7.4 - 10.4 12/27/2017 [facility] Monocytes # 1.0 0.0 - 0.8 12/27/2017 [facility] Lymphocytes # 1.4 1.0 - 5.5 12/27/2017 [facility] HEMATOLOGY Segs-Bands # 4.9 1.5 - 8.1 12/27/2017 [facility] Basophils 0.8 0.0 - 1.0 12/27/2017 [facility] Monocytes 13.4 2.0 - 12.0 12/27/2017 [facility] Lymphocytes 18.6 20.0 - 40.0 12/27/2017 [facility] Segs 63.1 45.0 - 75.0 12/27/2017 [facility] Eosinophils 4.1 0.0 - 4.0 12/27/2017 [facility] Basophils # 0.1 0.0 - 0.2 12/27/2017 [facility] Eosinophils # 0.3 0.0 - 0.5 12/27/2017 [facility] URINE CHEM U Preg Negative (12/27/17 6:48 AM) Negative 12/27/2017 [facility] Pathology Reports No Data Provided for This [...] are intact. IMPRESSION: No active process. SL: [id number] 12/27/2017 [facility] Consultation Notes No Data Provided for This Section Discharge Summaries No Data Provided for This Section History and Physicals No Data Provided for This Section Vital Signs Vital Sign Value Date Comments Source Systolic (mm Hg) 120 12/27/2017 [facility] Diastolic (mm Hg) 78 12/27/2017 [facility] Respitory Rate 14 12/27/2017 [facility] Systolic (mm Hg) 104 12/27/2017 [facility] Diastolic (mm Hg) 67 12/27/2017 [facility] Respitory Rate 16 12/27/2017 [facility] Systolic (mm Hg) 119 12/27/2017 [facility] Diastolic (mm Hg) 73 12/27/2017 [facility] Respitory Rate 14 12/27/2017 [facility] Temperature Oral (F) 97.8 F 12/27/2017 [facility] Weight 77.727 12/26/2017 [facility] Height 160.02 cm 12/26/2017 [facility] BMI Calculated 30.35 12/26/2017 [facility] Encounters Location Location Details Encounter Type Encounter Number Reason For Visit Attending Provider ADM Date DC Date Status Source [facility] Day Surgery [id number] Josemanuel Mercedes 12/27/2017 12/27/2017 [facility] Procedures Procedure Code Date Perfomer Comments Source Central line insertion<sup>1</sup> [id number] 11/24/[address] [facility] Hysteroscopy [id number] 09/26/2001 [facility] Assessment and Plan No Data Provided for [...] Cessation Counseling Yes entered on: 12/26/17 12/26/2017 [facility] Family History No Data Provided for This Section Advance Directives No Data Provided for This Section Functional Status No Data Provided for This Section
--- OUTSIDE RECORDS SUMMARY | 2019-03-25 07:50 | XMS REPORT | Clinical Summary ---
Author Author JULIO C [facility] HospitalArisaph PharmaceuticalsNemours Children[facility] Address Unknown Phone Unavailable Care Team Providers Care Intelligence Operations Specialist Name Role Phone Eyad Hernandez MD PCP [...] dialysis (HCC); Leukocytosis, unspecified type; Tachycardia 04/06/2018 [facility] General Internal Medicine - Encounter 04/11/2018 after [...] CDT) Result >15 Colonies On Direct Plate [facility] [employer] Pseudomonas aeruginosa (A) LABORATORY Specimen Other Antibiotic Method Susceptibility Organism Cefepime <=1: Susceptible Pseudomonas aeruginosa Gentamicin <=1: Susceptible Pseudomonas aeruginosa Levofloxacin 0.5: Susceptible Pseudomonas aeruginosa Meropenem 0.5: Susceptible Pseudomonas aeruginosa Piperacillin + Tazobactam <=4: Susceptible Pseudomonas aeruginosa Tobramycin <=1: Susceptible Pseudomonas aeruginosa Performing Organization Address City/State/Zipcode Phone Number [facility] [address] [place] [address] * IR Tunneled Catheter Removal (04/10/2018 2:05 PM CDT) Specimen Narrative Performed At FINAL REPORT [facility] History: End-stage renal disease, possibly infected catheter [...] MD Report Verified Date/Time:04/10/2018 15:28:49 Reading Location: [facility] Radiology Reading Room Procedure Note Interface, External [...] Report Verified Date/Time: 04/10/2018 15:28:49 Reading Location: [facility] Radiology Reading Room Performing Organization Address City/[facility]/Zipcode Phone Number RIS * Hepatitis B surface antibody (04/10/2018 8:43 AM CDT) Hep B S Ab <8.0 <8.0 mIU/mL [facility] Specimen Blood Performing Organization Address City/[facility]/Zipcode Phone Number [facility] [address] [place] [address] [facility] * Blood culture (04/08/2018 12:18 PM CDT) Only the most recent of 4 results within the time period is included. Result No growth in 5 days [facility] Specimen Blood Performing Organization Address City/State/Zipcode Phone Number [facility] [address] [place] [address] * Manual Differential (04/08/2018 10:13 [...] (manual) 0.09 0.00 - 0.50 K/L [facility] Total Counted [address] [facility] [facility] Vacuolated Neutrophils Present [facility] Large Platelet Present [facility] Anisocytosis 1+ few [facility] Specimen Blood Performing Organization Address City/[facility]/Zipcode Phone Number [facility] [address] [place], [place] [address] * CBC with platelet count + automated diff (04/08/2018 10:13 AM CDT) Only the most recent of 3 results within the time period is included. WBC 9.2 4.0 - 10.0 K/L [facility] RBC 3.33 (L) 4.00 - 5.00 M/L [facility] Hemoglobin 9.5 (L) 12.0 - 15.0 GM/DL [facility] Hematocrit 28.5 (L) 36.0 - 45.0 % [facility] MCV 85.6 82.0 - 99.0 fL [facility] MCH 28.4 27.0 - 33.0 pg [facility] MCHC 33.1 32.0 - 36.0 GM/DL [facility] RDW 18.6 (H) 10.3 - 14.2 % [facility] Platelets 191 150 - 430 K/CU MM [facility] MPV 9.2 6.5 - 10.5 fL [facility] nRBC 0 0 - 0 /100 WBC [facility] Specimen Blood Performing Organization Address City/[facility]/Zipcode Phone Number [facility] [address] [place], [place] [address] * Basic Metabolic Panel (04/08/2018 10:13 AM CDT) Only the most recent of 2 results within the time period is included. Sodium 134 (L) 135 - 148 meq/L [facility] Potassium 4.6 3.6 - 5.5 meq/L [facility] Chloride 97 (L) 98 - 106 meq/L [facility] CO2 22 20 - 29 meq/L [facility] BUN 39 (H) 10 - 26 mg/dL [facility] Creatinine 8.47 (H) 0.50 - 1.20 mg/dL [facility] Glucose 82 70 - 110 mg/dL [facility] Calcium 8.9 8.5 - 10.5 mg/dL [facility] EGFR 6Comment: ESTIMATED GFR IS NOT mL/min/1.73 sq m [facility] CLEARANCE IN PREDICTING GLOMERULAR FILTRATION RATE. ESTIMATED GFR IS NOT APPLICABLE FOR DIALYSIS PATIENTS. Specimen Blood Performing Organization Address [facility] Centercode Phone Number [facility] [address] [place] [phone] * Hepatitis B surface antigen (04/07/2018 3:40 PM CDT) hepatitis B Surface Ag Nonreactive Nonreactive [facility] Specimen Blood Performing Organization Address [facility] Centerc[facility] Phone Number [facility] [address] [place] [phone] * Hemoglobin A1c (04/07/2018 3:56 AM CDT) Hemoglobin A1C 5.2 4.3 - 6.1 % [facility] Specimen Blood Performing Organization Address [facility] Phone Number [facility] [address] [place] [phone] * Lipid panel (04/07/2018 3:56 AM CDT) Triglycerides 124 mg/dL [facility] Cholesterol 163 mg/dL [facility] HDL 40 mg/dL [facility] LDL Calculated 98 mg/dL [facility] Specimen Blood Narrative Performed At Triglyceride Reference Range: [facility] Low Risk <150 LAB[facility]ATORY [id number] High Risk 200-499 Very High Risk>=500 Cholesterol Reference Range: Low Risk <200 [id number] High Risk>240 HDL Cholesterol Reference Range: Low Risk >=60 High Risk <40 LDL Cholesterol Reference Range: Optimal<100 Near [id number] [id number] Very High >=190 Performing Organization Address [facility] Centercode Phone Number [facility] [address] [place] [phone] * CRITICAL CARE (04/06/2018 7:19 PM CDT) [...] CDT) Specimen Narrative Performed At FINAL REPORT [facility] TECHNIQUE: Frontal chest radiograph dated 04/06/2018. CLINICAL HISTORY: Back pain , fever COMPARISON STUDY: Chest radiograph dated 01/24/2018 IMPRESSION: Right-sided vascular line is unchanged. Lungs are clear. No pleural effusion or pneumothorax. Cardiomediastinal silhouette is normal in size. No pulmonary edema. No fracture. Signed: Nilsa Moya MD Report Verified Date/Time:04/06/2018 16:31:49 Reading Location: [facility] Radiology Reading Room Procedure Note Interface, External [...] Report Verified Date/Time: 04/06/2018 16:31:49 Reading Location: [facility] Radiology Reading Room Performing Organization Address City/[facility]/Zipcode Phone Number [facility] * Urinalysis w/Microscopic (04/06/2018 4:11 PM CDT) Color, UA Yellow [facility] Clarity, UA Clear [facility] Specific [place], UA 1.015 1.001 - 1.[address] [facility] pH, UA 8.0 5.0 - 8.[address] [facility] Protein, UA 100 mg/dL (A) Negative [facility] Glucose, UA 100 mg/dL (A) Negative [facility] Ketones, UA Negative Negative [facility] Bilirubin, UA Negative Negative [facility] Blood, UA Small (A) Negative [facility] Nitrite, UA Negative Negative [facility] Leukocytes, UA Negative Negative [facility] Urobilinogen, UA 0.2 0.2 - 1.0 mg/dL [facility] Bacteria, UA Few [facility] RBC, UA <5 /HPF [facility] WBC, UA <5 /HPF [facility] SQUAMOUS EPITHELIAL <5 /HPF [facility] Specimen Source [facility] Specimen Urine Performing Organization Address [facility] Phone Number [facility] [address] [place], [place] [address] * Prothrombin time/INR (04/06/2018 4:11 PM CDT) Protime 11.4 9.3 - 12.0 sec [facility] INR 1.1 <=5.9 [facility] Specimen Blood Narrative Performed At RECOMMENDED COUMADIN/WARFARIN INR THERAPY RANGES [facility] STANDARD DOSE: 2.0 - 3.0 Includes: PROPHYLAXIS for venous thrombosis, LABORATORY systemic embolization; TREATMENT for venous thrombosis and/or pulmonary embolus. HIGH RISK: Target INR is 2.5-3.5 for patients with mechanical heart valves. Final Information (Auto Output) Final Information (Auto Output) Performing Organization Address [facility] Centercode Phone Number [facility] [address] [place], [place] [phone] * Lactic acid, venous, whole blood (04/06/2018 4:10 PM CDT) Lactate, Venous 1.2Comment: Specimen slightly 0.5 - 2.2 mmol/L [facility] Specimen Blood Narrative Performed At Effective 01/28/2016: Units/Reference Range Change [facility] New: 0.5-2.2 mmol/LPrevious: 5-18 mg/dL LABORATORY Performing Organization Address [facility] Phone Number [facility] [address] [place] [phone] * Phosphorus (04/06/2018 4:10 PM CDT) Phosphorus 3.9Comment: Specimen slightly 2.5 - 4.5 mg/dL [facility] Specimen Blood Performing Organization Address [facility] Phone Number [facility] [address] [place] [phone] * Magnesium (04/06/2018 4:10 PM CDT) Magnesium 2.1Comment: Specimen slightly 1.5 - 3.0 mg/dL [facility] Specimen Blood Performing Organization Address [facility] Number [facility] [address] [place] [phone] * Lipase (04/06/2018 4:10 PM CDT) Lipase 15 6 - 51 U/L [facility] Specimen Blood Performing Organization Address [facility] Number [facility] [address] [place] [phone] * Comprehensive metabolic panel (04/06/2018 4:10 PM CDT) Protein, Total 9.3 (H)Comment: Specimen 6.0 - 8.5 gm/dL [facility] Albumin 3.9Comment: Specimen slightly 3.5 - 5.0 g/dL [facility] Alkaline Phosphatase 58 30 - 115 U/L [facility] Total Bilirubin 0.3Comment: Specimen slightly 0.1 - 1.2 mg/dL [facility] Sodium 132 (L) 135 - 148 meq/L [facility] Potassium 5.4Comment: Specimen slightly 3.6 - 5.5 meq/L [facility] Chloride 92 (L) 98 - 106 meq/L [facility] CO2 21 20 - 29 meq/L [facility] BUN 35 (H) 10 - 26 mg/dL [facility] Creatinine 9.03 (H)Comment: Specimen 0.50 - 1.20 mg/dL [facility] Glucose 95 70 - 110 mg/dL [facility] Calcium 9.0 8.5 - 10.5 mg/dL [facility] AST 24Comment: Specimen slightly 5 - 40 U/L [facility] hemolyzed [facility]ATORY ALT 20Comment: Specimen slightly 5 - 50 U/L [facility] hem[facility]zed [facility] EGFR 6Comment: ESTIMATED GFR IS NOT mL/min/1.73 sq m [facility] CLEARANCE IN PREDICTING GLOMERULAR FILTRATION RATE. ESTIMATED GFR IS NOT APPLICABLE FOR DIALYSIS PATIENTS. Specimen Blood Performing Organization Address City/State/Zipcode Phone Number [facility] [address] [place] [address] after 03/24/2018 Insurance Payer Benefit Subscriber ID Type Phone Address Plan / Group BLUE [employer] BCBS OS xxxxxxxxxxxxxxx PPO [phone] [address] [place]/PP[place] [address] O Advance Directives For more information, please contact: [facility] [address] [place] [address] Date Inactivated Comments Code Status [...]
--- NOTE | 2019-03-25 08:33 | NUR ---
PT ON FULL MONITORS, NRB 15 LMP SATTING AT 100%; EKG SINUS NO ECTOPY. PT AAOX4. ABLE TO AMBULATE. O2 SATS 78 ON ROOM AIR ON ARRIVAL. STAT NC CANNULA UP TO 5 LMP SATING 90% WITH CRISP WAVEFORM AND CORRESPONDING HEARTRATE AND PULSE RATE. MD OK TO CHG PT TO NRB 15LPM AND SATS UP TO 100%; PT
[2019-03-25 08:36] LABS: BASOPHILS # (AUTO) 0.1 (0.0-0.1); BASOPHILS % 0.5 % (0.0-1.0); EOSINOPHILS # (AUTO) 0.3 (0.0-0.4); EOSINOPHILS % 3.7 % (0.0-6.0); HEMOGLOBIN 13.2 g/dL (12.0-16.0); LYMPHOCYTES # (AUTO) 1.1 (1.0-3.2); LYMPHOCYTES % 11.9 % (18.0-39.1); MEAN CORPUSCULAR HEMOGLOBIN 30.4 pg (28-32); MEAN CORPUSCULAR VOLUME 92.2 fL (81-99); MONOCYTES # (AUTO) 0.7 (0.2-0.8); MONOCYTES % 7.8 % (4.4-11.3); NEUTROPHILS % 75.7 % (38.7-80.0); PLATELET COUNT 222 x10e3/uL (140-360); RED BLOOD COUNT 4.34 x10e6/uL (3.6-5.1); RED CELL DISTRIBUTION WIDTH 16.7 % (11.7-14.4)
--- NOTE | 2019-03-25 08:42 | NUR ---
PT IN HIGH FOWLERS AND STATES FEELING MORE SOB. DRY COUGH STATES "CANT GET IT OUT." NOTIFIED. PT REFUSED CATHETER AND STRAIGHT CATH AND BEDPAN AND STATES SHE WILL ONLY WALK TO RESTROOM. PT TOOK OFF NRB AND SATS IMMEDIATELY DROPPED INTO THE UPPER 80'S AND PT AGREE TO STAY IN BED. PT GIVEN SIPS OF WATER.
[2019-03-25 08:45] LABS: INR 0.9; PROTHROMBIN TIME 12.6 seconds (11.9-14.5)
[2019-03-25 08:46] LABS: PARTIAL THROMBOPLASTIN TIME 33.1 seconds (23.8-35.5)
--- NOTE | 2019-03-25 08:48 | NUR ---
PT ON PHONE KEEPS TAKING OFF NRB. PT RE EDUCATED ON IMPORTANCE OF TREATMENT.
[2019-03-25 08:54] LABS: ALBUMIN 3.7 g/dL (3.5-5.0); ALBUMIN/GLOBULIN RATIO 0.7 (0.8-2.0); ANION GAP 29.5 mmol/L (8-16); CALCIUM 9.3 mg/dL (8.4-10.2); CREATININE, SERUM 15.78 mg/dL (0.57-1.11); MAGNESIUM 2.1 MG/DL (1.3-2.1)
[2019-03-25 08:57] LABS: POTASSIUM 7.5 mmol/L (3.5-5.1)
[2019-03-25] MEDS: CEFTRIAXONE SOD 1 GM/NS 50 ML 50 ML IV SCH (09:01)
[2019-03-25] MEDS ORDERED: DEXTROSE 50% SYRINGE 50 ML IV STA (09:02)
[2019-03-25] MEDS ORDERED: ALBUTEROL SULF 0.083% NEB SOLN 3 ML NEB NEB STA (09:02)
[2019-03-25] MEDS ORDERED: SODIUM BICARBONATE 8.4% INJ 50 ML SYR IV NR (09:02)
[2019-03-25 09:03] LABS: B-TYPE NATRIURETIC PEPTIDE2 798.6 pg/mL (0-100)
[2019-03-25] MEDS ORDERED: DEXTROSE 50% SYRINGE 50 ML IV ONE (09:07)
[2019-03-25] MEDS ORDERED: CALCIUM GLUCONATE 10% INJ 0.465 MEQ/ML VIAL ONE (09:07)
[2019-03-25] MEDS ORDERED: SODIUM BICARBONATE 8.4% SYRING 50 ML ONE (09:07)
[2019-03-25] MEDS ORDERED: INSULIN REGULAR, HUMAN 100 UNIT/1 ML 3ML VIAL ONE (09:08)
[2019-03-25] MEDS ORDERED: SODIUM CHLORIDE 0.9% 100 ML ONE (09:08)
[2019-03-25] MEDS ORDERED: FUROSEMIDE INJ 10 MG/ML 4 ML VIAL IV NR (09:15)
[2019-03-25] MEDS ORDERED: INSULIN REGULAR, HUMAN 100 UNIT/1 ML 3ML VIAL IV NR (09:15)
[2019-03-25] MEDS ORDERED: CALCIUM GLUCONATE 10% INJ 4.65 MEQ in SODIUM CHLORIDE 0.9% 50ML 50 ML IV ONE (09:15)
[2019-03-25 09:18] LABS: CREATINE KINASE MB 5.4 ng/mL (0-5.0)
--- NOTE | 2019-03-25 09:24 | Diagnostic Imaging Report ---
EXAMINATION: CHEST SINGLE (PORTABLE) INDICATION: Cough, shortness of breath, ESRD missed dialysis. COMPARISON: None FINDINGS: TUBES and LINES: None. LUNGS: Lungs are well inflated. There are moderate bilateral perihilar interstitial and airspace opacities. PLEURA: Trace bilateral pleural effusions. No evidence of pneumothorax. HEART AND MEDIASTINUM: The cardiomediastinal silhouette is unremarkable. BONES AND SOFT TISSUES: No acute osseous lesion. UPPER ABDOMEN: No free air under the diaphragm. IMPRESSION: Findings consistent with moderate pulmonary edema. Superimposed pneumonia is possible in the appropriate clinical setting. Signed by: Dr. Viviana Leonard MD on 03/25/2019 9:21 AM
[2019-03-25] MEDS ORDERED: ASPIRIN 81 MG CHEW TAB PO NR (09:30)
[2019-03-25] MEDS ORDERED: ASPIRIN 81 MG ENTERIC COATED PO ONE (09:35)
[2019-03-25] MEDS ORDERED: LORAZEPAM INJ 2 MG/ML VIAL ONE (09:36)
[2019-03-25] MEDS ORDERED: ASPIRIN 81 MG CHEW TAB ONE (09:36)
[2019-03-25] MEDS: AZITHROMYCIN 500MG/NS 250 ML 250 ML IV SCH ×2 (09:40→10:20)
[2019-03-25] MEDS ORDERED: LORAZEPAM INJ 2 MG/ML VIAL IV NR ×2 (09:45→10:30)
--- OUTSIDE RECORDS SUMMARY | 2019-03-25 10:04 | XMS REPORT | Continuity of Care Document ---
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 [employer] Unavailable Unavailable Problems Problem Status Onset Date Classification Date Reported Comments Source Hypertensive chronic kidney disease with stage 5 chronic kidney disease or end stage renal disease 01/04/2018 04/04/2018 [facility] NA Active 12/21/2017 [facility] N18.6 Active 12/21/2017 [facility] End stage renal disease 04/04/2018 [facility] Anemia in chronic kidney disease 04/04/2018 [facility] Supraventricular tachycardia 04/04/2018 [facility] Dependence on renal dialysis 04/04/2018 [facility] Hyperlipidemia, unspecified 04/04/2018 [facility] Medications Medication Details Route Status Patient Instructions Ordering Provider Order Date [facility] phenylephrine (ANES) Route: IV, Drug form: INJ, ONCE, Stop date: 12/27/17 10:49:00 CDT Inactive 12/27/2017 [facility] ondansetron (ANES) Route: IV, Drug form: INJ, ONCE, Stop date: 12/27/17 10:49:00 CDT Inactive 12/27/2017 [facility] propofol (ANES) Route: IV, Drug form: INJ, ONCE, Stop date: 12/27/17 10:24:00 CDT Inactive 12/27/2017 [facility] dexamethasone (ANES) Route: IV, Drug form: INJ, ONCE, Stop date: 12/27/17 10:24:00 CDT Inactive 12/27/2017 [facility] fentaNYL (ANES) Route: IV, Drug form: INJ, ONCE, Stop date: 12/27/17 10:24:00 CDT Inactive 12/27/2017 [facility] midazolam (ANES) Route: IV, Drug form: SOLN, ONCE, Stop date: 12/27/17 10:24:00 CDT Inactive 12/27/2017 [facility] Dexamethasone 4 mg, 1 mL, Route: IVP, Drug form: INJ, ONCE, Dosing Weight 77.727, kg, PRN Nausea & Vomiting, Start date: 12/27/17 9:50:00 CDTNotes: Concentration: 4mg/ml Inactive 12/27/2017 [facility] Ondansetron 4 mg, 2 mL, Route: IVP, Drug form: INJ, ONCE, Dosing Weight 77.727, kg, PRN Nausea & Vomiting, Start date: 12/27/17 9:50:00 CDTNotes: (Same as: Zofran) MEDICATION WASTE Product Size: 4 mg Product Wasted: ___ mg Inactive 12/27/2017 [facility] Fentanyl 25 microgram, 0.5 mL, Route: IVP, Drug form: INJ, Q5Min, Dosing Weight 77.727, kg, PRN Pain Score 4-6, Priority: Routine, Start date: 12/27/17 9:50:00 CDT, Duration: 4 doses or times, Stop date: Limited # of timesNotes: (Same as: Sublimaze) Preservative free. Inactive 12/27/2017 [facility] Flumazenil 0.2 mg, 2 mL, Route: IVP, Drug form: INJ, PRN, Dosing Weight 77.727, kg, PRN Benzodiazepine Reversal, Initial dose, Start date: 12/27/17 9:50:00 CDT, Duration: 30 day, Stop date: 01/26/18 9:49:00 CDT Notes: (Same as: Romazicon) Inactive 12/27/2017 [facility] Naloxone 0.4 mg, 1 mL, Route: IVP, Drug form: INJ, Q2MIN, Dosing Weight 77.727, kg, PRN Narcotic Reversal, Start date: 12/27/17 9:50:00 CDT, Duration: 8 doses or times, Stop date: Limited # of timesNotes: Same as Narcan Inactive 12/27/2017 [facility] Acetaminophen 1,000 mg, 100 mL, Route: IV, Drug form: INJ, ONCE, Dosing Weight 77.727, kg, PRN Pain Score 1-3, Start date: 12/27/17 9:50:00 CDTNotes: Infuse over 15 minutes Do not exceed 4gm/day of acetaminophen MEDICATION WASTE Product Size: 1000 mg Product Wasted: ___ mg Inactive 12/27/2017 [facility] Hydralazine 10 mg, 0.5 mL, Route: IVP, Drug form: INJ, Q20Min, Dosing Weight 77.727, kg, PRN Elevated BP, Start date: 12/27/17 9:50:00 CDT, Duration: 2 doses or times, Stop date: Limited # of timesNotes: (Same as: Apresoline) Push over 5 minutes Inactive 12/27/2017 [facility] Labetalol 10 mg, 2 mL, Route: IVP, Drug form: INJ, Q5Min, Dosing Weight 77.727, kg, PRN Elevated BP, Start date: 12/27/17 9:50:00 CDT, Duration: 5 doses or times, Stop date: Limited # of times Inactive 12/27/2017 [facility] vancomycin (ANES) 1000 mg Route: IV, Drug form: INJ, Start date: 12/27/17 9:48:00 CDT, Stop date: 12/27/17 10:48:00 CDT Inactive 12/27/2017 [facility] Sodium Chloride 0.9% IV (ANES) 500 mL Route: IV, Total Volume: 500, Start date: 12/27/17 9:41:00 CDT, Stop date: 12/27/17 10:41:00 CDT Inactive 12/27/2017 [facility] acetaminophen-codeine #3 2 tab, Route: PO, Drug Form: TAB, Dosing Weight 77.727, kg, Q4H, PRN Pain Score 4-6, Start date: 12/27/17 8:22:00 CDT, Duration: 30 day, Stop date: 01/26/18 8:21:00 CDTNotes: Do not exceed 4gm/day of acetaminophen. (Same as: Tylenol with Codeine # 3) Inactive 12/27/2017 [facility] Vancomycin 1,000 mg, Route: IVPB, PRE [...] mg Product Wasted: ___ mg Inactive 12/27/2017 [facility] Colchicine 0.6 MG Oral Tablet 0.6 mg=1 tab, PO, Daily, PRN gout flare ups Active 12/26/2017 [facility] metoprolol tartrate 100 mg oral tablet 100 mg=1 tab, PO, BID, 0 Refill(s) Active 12/26/2017 [facility] amLODIPine 10 mg oral tablet 10 mg=1 tab, PO, BID Active 12/26/2017 [facility] RenaPlex oral tablet 1 tab, PO, Daily Active 12/26/2017 [facility] Allergies, Adverse Reactions, Alerts Substance Category Reaction Severity Reaction type Status Date Reported Comments Source NKFA Assertion Food allergy Active [facility] Immunizations No Data Provided for This [...] should be multiplied by the estimated BMI. [facility] CHEM PANEL POC Carbon Dioxide 29 24 - 32 12/27/2017 [facility] CHEM PANEL POC Creatinine 6.3 0.5 - 1.4 12/27/2017 [facility] CHEM PANEL POC BUN 27 7 - 22 12/27/2017 [facility] CHEM PANEL POC Glucose 96 70 - 99 12/27/2017 [facility] CHEM PANEL POC Ion Ca 1.04 1.05 - 1.25 12/27/2017 [facility] CHEM PANEL POC Sodium 137 135 - 145 12/27/2017 [facility] CHEM PANEL POC Hematocrit 34.0 36.0 - 48.0 12/27/2017 [facility] CHEM PANEL POC Hemoglobin 11.6 12.0 - 16.0 12/27/2017 [facility] CHEM PANEL POC AGAP 16.0 10.0 - 20.0 12/27/2017 [facility] CHEM PANEL POC Chloride 97 95 - 109 12/27/2017 [facility] CHEM PANEL POC Potassium 3.9 3.5 - 5.1 12/27/2017 [facility] CHEM PANEL eGFR 9 12/27/2017 Result [...] should be multiplied by the estimated BMI. [facility] CHEM PANEL Calcium Lvl 8.3 8.5 - 10.5 12/27/2017 [facility] CHEM PANEL CO2 28 24 - 32 12/27/2017 [facility] CHEM PANEL Creatinine Lvl 6.00 0.50 - 1.40 12/27/2017 [facility] CHEM PANEL Glucose Lvl 92 70 - 99 12/27/2017 [facility] CHEM PANEL BUN 26 7 - 22 12/27/2017 [facility] CHEM PANEL Potassium Lvl 3.8 3.5 - 5.1 12/27/2017 [facility] CHEM PANEL Chloride Lvl 99 95 - 109 12/27/2017 [facility] CHEM PANEL Sodium Lvl 137 135 - 145 12/27/2017 [facility] CHEM PANEL AGAP 13.8 10.0 - 20.0 12/27/2017 [facility] HEMATOLOGY PT 13.3 12.0 - 14.7 12/27/2017 [facility] HEMATOLOGY PTT 80.0 22.9 - 35.8 12/27/2017 [facility] HEMATOLOGY INR 1.01 0.85 - 1.17 12/27/2017 [facility] HEMATOLOGY WBC 7.7 3.7 - 10.4 12/27/2017 [facility] HEMATOLOGY RBC 3.69 4.20 - 5.40 12/27/2017 [facility] Hct 32.0 36.0 - 48.0 12/27/2017 [facility] Hgb 10.5 12.0 - 16.0 12/27/2017 [facility] MCV 86.7 80.0 - 98.0 12/27/2017 [facility] MCH 28.5 27.0 - 31.0 12/27/2017 [facility] RDW 18.1 11.5 - 14.5 12/27/2017 [facility] Platelet 186 133 - 450 12/27/2017 [facility] MCHC 32.9 32.0 - 36.0 12/27/2017 [facility] MPV 8.6 7.4 - 10.4 12/27/2017 [facility] Monocytes # 1.0 0.0 - 0.8 12/27/2017 [facility] Lymphocytes # 1.4 1.0 - 5.5 12/27/2017 [facility] HEMATOLOGY Segs-Bands # 4.9 1.5 - 8.1 12/27/2017 [facility] Basophils 0.8 0.0 - 1.0 12/27/2017 [facility] Monocytes 13.4 2.0 - 12.0 12/27/2017 [facility] Lymphocytes 18.6 20.0 - 40.0 12/27/2017 [facility] Segs 63.1 45.0 - 75.0 12/27/2017 [facility] Eosinophils 4.1 0.0 - 4.0 12/27/2017 [facility] Basophils # 0.1 0.0 - 0.2 12/27/2017 [facility] Eosinophils # 0.3 0.0 - 0.5 12/27/2017 [facility] URINE CHEM U Preg Negative (12/27/17 6:48 AM) Negative 12/27/2017 [facility] Pathology Reports No Data Provided for [...] are intact. IMPRESSION: No active process. SL: [id number] 12/27/2017 [facility] Consultation Notes No Data Provided for This Section Discharge Summaries No Data Provided for This Section History and Physicals No Data Provided for This Section Vital Signs Vital Sign Value Date Comments Source Systolic (mm Hg) 120 12/27/2017 [facility] Diastolic (mm Hg) 78 12/27/2017 [facility] Respitory Rate 14 12/27/2017 [facility] Systolic (mm Hg) 104 12/27/2017 [facility] Diastolic (mm Hg) 67 12/27/2017 [facility] Respitory Rate 16 12/27/2017 [facility] Systolic (mm Hg) 119 12/27/2017 [facility] Diastolic (mm Hg) 73 12/27/2017 [facility] Respitory Rate 14 12/27/2017 [facility] Temperature Oral (F) 97.8 F 12/27/2017 [facility] Weight 77.727 12/26/2017 [facility] Height 160.02 cm 12/26/2017 [facility] BMI Calculated 30.35 12/26/2017 [facility] Encounters Location Location Details Encounter Type Encounter Number Reason For Visit Attending Provider ADM Date DC Date Status Source [facility] Day Surgery [id number] Josemanuel Mercedes 12/27/2017 12/27/2017 [facility] Procedures Procedure Code Date Perfomer Comments Source Central line insertion<sup>1</sup> [id number] 11/24/2017 R IJ [facility] Hysteroscopy [id number] 09/26/2001 [facility] Assessment and Plan No Data Provided [...] Cessation Counseling Yes entered on: 12/26/17 12/26/2017 [facility] Family History No Data Provided for This Section Advance Directives No Data Provided for This Section Functional Status No Data Provided for This Section
--- OUTSIDE RECORDS SUMMARY | 2019-03-25 10:04 | XMS REPORT | Clinical Summary ---
Author Author JULIO C [facility] HospitalBioconnect SystemsB[facility] Address Unknown Phone Unavailable Care Team Providers Care Associate Professor Of Counseling Name Role Phone Eyad Hernandez MD PCP [...] dialysis (HCC); Leukocytosis, unspecified type; Tachycardia 04/06/2018 [facility] General Internal Medicine - Encounter [...] CDT) Result >15 Colonies On Direct Plate [facility] [employer] Pseudomonas aeruginosa (A) LABORATORY Specimen Other Antibiotic Method Susceptibility Organism Cefepime <=1: Susceptible Pseudomonas aeruginosa Gentamicin <=1: Susceptible Pseudomonas aeruginosa Levofloxacin 0.5: Susceptible Pseudomonas aeruginosa Meropenem 0.5: Susceptible Pseudomonas aeruginosa Piperacillin + Tazobactam <=4: Susceptible Pseudomonas aeruginosa Tobramycin <=1: Susceptible Pseudomonas aeruginosa Performing Organization Address City/State/Zipcode Phone Number [facility] [address] [place] [address] * IR Tunneled Catheter Removal (04/10/2018 2:05 PM CDT) Specimen Narrative Performed At FINAL REPORT [facility] History: End-stage renal disease, possibly [...] MD Report Verified Date/Time:04/10/2018 15:28:49 Reading Location: [facility] Radiology Reading Room Procedure Note Interface, [...] Report Verified Date/Time: 04/10/2018 15:28:49 Reading Location: [facility] Radiology Reading Room Performing Organization Address City/[facility]/Zipcode Phone Number RIS * Hepatitis B surface antibody (04/10/2018 8:43 AM CDT) Hep B S Ab <8.0 <8.0 mIU/mL [facility] Specimen Blood Performing Organization Address City/[facility]/Zipcode Phone Number [facility] [address] [place] [address] [facility] * Blood culture (04/08/2018 12:18 PM CDT) Only the most recent of 4 results within the time period is included. Result No growth in 5 days [facility] Specimen Blood Performing Organization Address City/State/Zipcode Phone Number [facility] [address] [place] [address] * Manual Differential (04/08/2018 10:13 [...] (manual) 0.09 0.00 - 0.50 K/L [facility] Total Counted 100 [facility] Vacuolated Neutrophils Present [facility] Large Platelet Present [facility] Anisocytosis 1+ few [facility] Specimen Blood Performing Organization Address City/[facility]/Zipcode Phone Number [facility] [address] [place], [place] [phone] * CBC with platelet count + automated diff (04/08/2018 10:13 AM CDT) Only the most recent of 3 results within the time period is included. WBC 9.2 4.0 - 10.0 K/L [facility] RBC 3.33 (L) 4.00 - 5.00 M/L [facility] Hemoglobin 9.5 (L) 12.0 - 15.0 GM/DL [facility] Hematocrit 28.5 (L) 36.0 - 45.0 % [facility] MCV 85.6 82.0 - 99.0 fL [facility] MCH 28.4 27.0 - 33.0 pg [facility] MCHC 33.1 32.0 - 36.0 GM/DL [facility] RDW 18.6 (H) 10.3 - 14.2 % [facility] Platelets 191 150 - 430 K/CU MM [facility] MPV 9.2 6.5 - 10.5 fL [facility] nRBC 0 0 - 0 /100 WBC [facility] Specimen Blood Performing Organization Address City/[facility]/Zipcode Phone Number [facility] [address] [place], [place] [phone] * Basic Metabolic Panel (04/08/2018 10:13 AM CDT) Only the most recent of 2 results within the time period is included. Sodium 134 (L) 135 - 148 meq/L [facility] Potassium 4.6 3.6 - 5.5 meq/L [facility] Chloride 97 (L) 98 - 106 meq/L [facility] CO2 22 20 - 29 meq/L [facility] BUN 39 (H) 10 - 26 mg/dL [facility] Creatinine 8.47 (H) 0.50 - 1.20 mg/dL [facility] Glucose 82 70 - 110 mg/dL [facility] Calcium 8.9 8.5 - 10.5 mg/dL [facility] EGFR 6Comment: ESTIMATED GFR IS NOT mL/min/1.73 sq m [facility] CLEARANCE IN PREDICTING GLOMERULAR FILTRATION RATE. ESTIMATED GFR IS NOT APPLICABLE FOR DIALYSIS PATIENTS. Specimen Blood Performing Organization Address [facility] Phone Number [facility] [address] [place] [phone] * Hepatitis B surface antigen (04/07/2018 3:40 PM CDT) hepatitis B Surface Ag Nonreactive Nonreactive [facility] Specimen Blood Performing Organization Address [facility] Phone Number [facility] [address] [place] [phone] * Hemoglobin A1c (04/07/2018 3:56 AM CDT) Hemoglobin A1C 5.2 4.3 - 6.1 % [facility] Specimen Blood Performing Organization Address [facility] Phone Number [facility] [address] [place] [phone] * Lipid panel (04/07/2018 3:56 AM CDT) Triglycerides 124 mg/dL [facility] Cholesterol 163 mg/dL [facility] HDL 40 mg/dL [facility] LDL Calculated 98 mg/dL [facility] Specimen Blood Narrative Performed At Triglyceride Reference Range: [facility] Low Risk <150 LABORATORY [id number] High Risk 200-499 Very High Risk>=500 Cholesterol Reference Range: Low Risk <200 [id number] High Risk>240 HDL Cholesterol Reference Range: Low Risk >=60 High Risk <40 LDL Cholesterol Reference Range: Optimal<100 Near Lbqbmik770-011 Ftkqczpldu207-050 Abld135-140 Very High >=190 Performing Organization Address [facility] Phone Number [facility] [address] [place] [phone] * CRITICAL CARE (04/06/2018 7:19 PM CDT) [...] CDT) Specimen Narrative Performed At FINAL REPORT [facility] TECHNIQUE: Frontal chest radiograph dated 04/06/2018. CLINICAL HISTORY: Back pain , fever COMPARISON STUDY: Chest radiograph dated 01/24/2018 IMPRESSION: Right-sided vascular line is unchanged. Lungs are clear. No pleural effusion or pneumothorax. Cardiomediastinal silhouette is normal in size. No pulmonary edema. No fracture. Signed: Nilsa Moya MD Report Verified Date/Time:04/06/2018 16:31:49 Reading Location: [facility] Radiology Reading Room Procedure Note Interface, External [...] Report Verified Date/Time: 04/06/2018 16:31:49 Reading Location: [facility] Radiology Reading Room Performing Organization Address City/[facility]/Zipcode Phone Number GE [facility] * Urinalysis w/Microscopic (04/06/2018 4:11 PM CDT) Color, UA Yellow [facility] Clarity, UA Clear [facility] Specific [place], UA 1.015 1.001 - 1.035 [facility] pH, UA 8.0 5.0 - 8.0 [facility] Protein, UA 100 mg/dL (A) Negative [facility] Glucose, UA 100 mg/dL (A) Negative [facility] Ketones, UA Negative Negative [facility] Bilirubin, UA Negative Negative [facility] Blood, UA Small (A) Negative [facility] Nitrite, UA Negative Negative [facility] Leukocytes, UA Negative Negative [facility] Urobilinogen, UA 0.2 0.2 - 1.0 mg/dL [facility] Bacteria, UA Few [facility] RBC, UA <5 /HPF [facility] WBC, UA <5 /HPF [facility] SQUAMOUS EPITHELIAL <5 /HPF [facility] Specimen Source [facility] Specimen Urine Performing Organization Address [facility] Phone Number [facility] [address] [place], [place] [phone] * Prothrombin time/INR (04/06/2018 4:11 PM CDT) Protime 11.4 9.3 - 12.0 sec [facility] INR 1.1 <=5.9 [facility] Specimen Blood Narrative Performed At RECOMMENDED COUMADIN/WARFARIN INR THERAPY RANGES [facility] STANDARD DOSE: 2.0 - 3.0 Includes: PROPHYLAXIS for venous thrombosis, LABORATORY systemic embolization; TREATMENT for venous thrombosis and/or pulmonary embolus. HIGH RISK: Target INR is 2.5-3.5 for patients with mechanical heart valves. Final Information (Auto Output) Final Information (Auto Output) Performing Organization Address [facility] Phone Number [facility] [address] [place], [place] [phone] * Lactic acid, venous, whole blood (04/06/2018 4:10 PM CDT) Lactate, Venous 1.2Comment: Specimen slightly 0.5 - 2.2 mmol/L [facility] hemolyzed [facility] Specimen Blood Narrative Performed At Effective 01/28/2016: Units/Reference Range Change [facility] New: 0.5-2.2 mmol/LPrevious: 5-18 mg/dL LABORATORY Performing Organization Address [facility] Phone Number [facility] [address] [place] [phone] * Phosphorus (04/06/2018 4:10 PM CDT) Phosphorus 3.9Comment: Specimen slightly 2.5 - 4.5 mg/dL [facility] Specimen Blood Performing Organization Address [facility] Phone Number [facility] [address] [place] [phone] * Magnesium (04/06/2018 4:10 PM CDT) Magnesium 2.1Comment: Specimen slightly 1.5 - 3.0 mg/dL [facility] Specimen Blood Performing Organization Address [facility] Number [facility] [address] [place] [phone] * Lipase (04/06/2018 4:10 PM CDT) Lipase 15 6 - 51 U/L [facility] Specimen Blood Performing Organization Address [facility] Number [facility] [address] [place] [phone] * Comprehensive metabolic panel (04/06/2018 4:10 PM CDT) Protein, Total 9.3 (H)Comment: Specimen 6.0 - 8.5 gm/dL [facility] slightly hemolyzed [facility] Albumin 3.9Comment: Specimen slightly 3.5 - 5.0 g/dL [facility] Alkaline Phosphatase 58 30 - 115 U/L [facility] Total Bilirubin 0.3Comment: Specimen slightly 0.1 - 1.2 mg/dL [facility] Sodium 132 (L) 135 - 148 meq/L [facility] Potassium 5.4Comment: Specimen slightly 3.6 - 5.5 meq/L [facility] Chloride 92 (L) 98 - 106 meq/L [facility] CO2 21 20 - 29 meq/L [facility] BUN 35 (H) 10 - 26 mg/dL [facility] Creatinine 9.03 (H)Comment: Specimen 0.50 - 1.20 mg/dL [facility] slightly hemolyzed [facility] Glucose 95 70 - 110 mg/dL [facility] Calcium 9.0 8.5 - 10.5 mg/dL [facility] AST 24Comment: Specimen slightly 5 - 40 U/L [facility] hemolyzed LABORATORY ALT 20Comment: Specimen slightly 5 - 50 U/L [facility] hemolyzed LABORATORY EGFR 6Comment: ESTIMATED GFR IS NOT mL/min/1.73 sq m [facility] CREATININE LAB[facility]ORY CLEARANCE IN PREDICTING GLOMERULAR FILTRATION RATE. ESTIMATED GFR IS NOT APPLICABLE FOR DIALYSIS PATIENTS. Specimen Blood Performing Organization Address City/State/Zipcode Phone Number [facility] [address] [place] [address] after 03/24/2018 Insurance Payer Benefit Subscriber ID Type Phone Address Plan / Group BLUE CROSS/[employer]BS OS xxxxxxxxxxxxxxx PPO [phone] [id number] [place] [address] O Advance Directives For more information, please contact: [facility] [address] [place] [address] Date Inactivated Comments Code Status [...]
--- NOTE | 2019-03-25 10:09 | NUR ---
PURWICK/TANI DEVICE TO SX PLACED.
--- NOTE | 2019-03-25 10:09 | NUR ---
BIPAP 06/30, RATE 12 @ 60%
--- NOTE | 2019-03-25 10:36 | NUR ---
WARM BLANKETS PLACED, ECHO BEING DONE AT BEDSIDE.
--- NOTE | 2019-03-25 10:40 | NUR ---
DIALYSIS NURSE HERE.
--- NOTE | 2019-03-25 11:12 | NUR ---
recv pt, vs stable. on bipap. dialysis setting up.
[2019-03-25] MEDS ORDERED: SODIUM CHLORIDE 0.9% 1000ML 2,000 ML ONE (11:34)
[2019-03-25] MEDS ORDERED: LORAZEPAM INJ 2 MG/ML VIAL IV ONE (15:00)
--- NOTE | 2019-03-25 15:00 | NUR ---
pt awoke very anxious, removing bipap mask. temp placed on high flow, pt continued to be anxious, pulling at leads and dialysis tubing. pt wanting "to remove and stop everything", ed patient of current health status. pt attempted to comply but removed mask/o2. pt desat to 84% and increased respirations. pt stated was having "anxiety-like attack" and feeling "hot/cold and claustrophobic". Sheba STANFORD notified, 1x order ativan ordered. pt now resting and will complete dialysis in 1 hour. currently on high-flow nc with assistance of RT. vs stable
--- NOTE | 2019-03-25 22:29 | Consultation ---
DATE OF CONSULTATION: 03/25/2019 Cardiology consultation REASON FOR CONSULTATION: Elevated troponins. HISTORY OF PRESENT ILLNESS: This is a 48-year-old woman with a history of hypertension, hyperlipidemia, history of supraventricular tachycardia, end-stage renal disease on hemodialysis, who presented to the Emergency Department with sudden onset shortness of breath and coughing. The patient missed her Tuesday dialysis session due to work issues. She suddenly woke up from a nap, felt very short of breath with significant tachypnea and coughing. Upon arrival here, she was noted to have significant hyperkalemia with pulmonary edema, is currently initiated on hemodialysis with volume removal and BiPAP. She denies any typical chest pain or pressure. Does reports generalize congestion. REVIEW OF SYSTEMS: A 12-point review of system was conducted, is negative otherwise as stated above in the HPI. PAST MEDICAL HISTORY: As stated above in the HPI. PAST SURGICAL HISTORY: AV fistula. FAMILY HISTORY: No premature coronary artery disease or sudden cardiac . ALLERGIES: NO KNOWN DRUG ALLERGIES. MEDICATIONS: See medications reconciliation form. PHYSICAL EXAMINATION: VITAL SIGNS: Temperature is 96.8, heart rate is 88, respirations are 22, blood pressure is 130/80, oxygen saturation 100% on 15% FiO2 on BiPAP. GENERAL: Well appearing, well built, no apparent distress. CARDIOVASCULAR: Regular rate and rhythm. HEAD: Normocephalic, atraumatic. EYES: Extraocular muscles are intact. Conjunctivae are clear. NECK: No JVD. LUNGS: Diminished breath sounds at bases. ABDOMEN: Soft, nontender, nondistended. EXTREMITIES: Trace edema. NEUROLOGIC: No focal deficits noted. LABORATORY DATA: Reviewed, hemoglobin 13.2, troponin I is 1.3, creatinine is 15.7, potassium is 7.5. CK is 1.38, CK-MB is 5.4. BNP is 798. Chest x-ray shows pulmonary edema. IMPRESSION: 1. Elevated troponin, likely type 2 myocardial infarction related to lack of renal clearance versus a true non-ST elevation myocardial infarction. 2. Pulmonary edema. 3. Hypertension. 4. End-stage renal disease, on hemodialysis. 5. History of supraventricular tachycardia. RECOMMENDATIONS: Continue hemodialysis for clearance of volume removal. Wean BiPAP as tolerated. Continue to trend cardiac enzymes. If troponin continues to elevate, start heparin. Blood pressure control with home blood pressure medications. Continue aspirin and start statin. We will check a 2D echocardiogram. DO OLE Snider/EARL /[id number]
--- NOTE | 2019-03-25 23:04 | Consultation ---
DATE OF CONSULTATION: 03/25/2019 HISTORY: A 48-year-old Afro-[place] female, underlying history of end-stage renal disease, who missed her dialysis Omar, developed acute shortness of breath, presented to the emergency room where she was found to have acute respiratory failure as well as life-threatening hyperkalemia. Stat renal consultation called. The patient seen in the ER awake, alert, on BiPAP. Labs shows potassium 7.5, bicarbonate 17, creatinine 15.7, troponin I 1.37 with a BNP of 798. She is currently awake, alert, follows commands. Her white count is 9.3, hemoglobin is 13.2. Has history of hypertension, end-stage renal disease, left AV fistula, history of recent pneumonia, congestive heart failure. ALLERGIES: NO APPARENT DRUG ALLERGIES. SOCIAL HISTORY: Does not smoke or drink. FAMILY HISTORY: Significant for hypertension. HOME MEDICATIONS: Amlodipine, azithromycin, cinacalcet, doxepin, guaifenesin, loratadine, metoprolol, Ceftin, . CURRENT MEDICATIONS: The patient is on lorazepam p.r.n., received stat treatment for hyperkalemia, azithromycin IV, insulin sliding scale. For dose schedule, please see MAR. PHYSICAL EXAMINATION: GENERAL: Awake, alert, and oriented x3, lying supine in bed with a blood pressure 130/80, pulse rate 80, afebrile, respiratory rate 22, with oxygen saturation of 100% on BiPAP. HEAD AND NECK: Cornea clear. Mucosa moist. Neck veins distended. No JVD. LUNGS: Bibasilar rales with impaired percussion noted in the lower zone suggestive of possible pleural effusion. HEART: S1, S2 audible. No rubs or gallops. ABDOMEN: Soft, nontender. LOWER EXTREMITY: No edema. IMPRESSION: Metabolic acidosis, severe azotemia, questionable noncompliance with dialysis. Congestive heart failure, hypertensive heart failure with life-threatening hyperkalemia. Agree with emergent treatment in the emergency room. Discussed with dialysis nurse patient on a stat basis for urgent stat dialysis. We will place on a renal diet. Please see orders. MD MIKE Mendez/EARL /[id number]
[2019-03-25 23:49] LABS: CREATINE KINASE MB 3.1 ng/mL (0-5.0)
[2019-03-26] VITALS (20 sets, daily range): BP systolic 89–141; BP diastolic 48–95
[2019-03-26 03:42] LABS: BASOPHILS % 0.4 % (0.0-1.0); EOSINOPHILS # (AUTO) 0.1 (0.0-0.4); EOSINOPHILS % 1.5 % (0.0-6.0); HEMATOCRIT 36.3 % (34.2-44.1); HEMOGLOBIN 12.1 g/dL (12.0-16.0); LYMPHOCYTES # (AUTO) 1.5 (1.0-3.2); LYMPHOCYTES % 18.2 % (18.0-39.1); MEAN CORPUSCULAR HEMOGLOBIN 31.1 pg (28-32); MEAN CORPUSCULAR HGB CONC 33.3 g/dL (31-35); MEAN CORPUSCULAR VOLUME 93.3 fL (81-99); MONOCYTES # (AUTO) 0.9 (0.2-0.8); MONOCYTES % 11.2 % (4.4-11.3); NEUTROPHILS # (AUTO) 5.5 (2.1-6.9); NEUTROPHILS % 68.3 % (38.7-80.0); PLATELET COUNT 186 x10e3/uL (140-360); RED BLOOD COUNT 3.89 x10e6/uL (3.6-5.1); RED CELL DISTRIBUTION WIDTH 16.9 % (11.7-14.4)
[2019-03-26] MEDS ORDERED: SODIUM CHLORIDE 0.9% 1000ML 2,000 ML IV PRN (06:15)
[2019-03-26] MEDS ORDERED: SODIUM CHLORIDE 0.9% 250ML 500 ML IV PRN (06:15)
[2019-03-26 06:33] LABS: ANION GAP 24.7 mmol/L (8-16); CALCIUM 9.1 mg/dL (8.4-10.2); CREATININE, SERUM 11.35 mg/dL (0.57-1.11); MAGNESIUM 1.9 MG/DL (1.3-2.1)
[2019-03-26 06:37] LABS: POTASSIUM 5.7 mmol/L (3.5-5.1)
[2019-03-26 07:19] LABS: CREATINE KINASE MB 2.5 ng/mL (0-5.0)
[2019-03-26] MEDS ORDERED: ACETAMINOPHEN 325 MG TAB PO PRN (07:30)
--- NOTE | 2019-03-26 08:07 | NUR ---
LABS CALLED TO THIS AM, RECEIVED ORDERS AT THIS TIME. DIALYSIS CALLED INFORMED OF NEED FOR STAT DIALYSIS THIS DAY SPOKE TO GREGORY STATES SHE WILL LET NURSE KNOW
[2019-03-26] MEDS ORDERED: SOD POLYSTYRENE SULFONATE SUSP 15 GM/60 ML BTL PO ONE (08:15)
[2019-03-26] MEDS ORDERED: SODIUM CHLORIDE 0.9% 250ML 250 ML ONE (08:29)
[2019-03-26] MEDS: FAMOTIDINE 20 MG TAB PO SCH ×2 (08:30→16:47)
[2019-03-26] MEDS: CEFTRIAXONE SOD 1 GM/NS 50 ML 50 ML IV SCH (08:30)
[2019-03-26] MEDS ORDERED: LACTULOSE SYRUP 20 GM/30 ML UDC PO ONE (08:30)
[2019-03-26] MEDS: AZITHROMYCIN 500MG/NS 250 ML 250 ML IV SCH (09:50)
[2019-03-26] MEDS ORDERED: HEPARIN SOD (PORCINE) 5,000 UNIT/ML VIAL IV ONE (10:45)
[2019-03-26] MEDS ORDERED: CLOPIDOGREL BISULFATE 300 MG TAB-DO NOT STOCK PO ONE (11:00)
[2019-03-26] MEDS: GUAIFENESIN 600 MG TAB PO SCH ×3 (11:14→21:27)
[2019-03-26] MEDS: METOPROLOL TARTRATE 25 MG TAB PO SCH ×2 (11:14→21:28)
[2019-03-26] MEDS: ASPIRIN 81 MG CHEW TAB PO SCH (11:14)
--- NOTE | 2019-03-26 11:15 | NUR ---
NOTIFIED OF ELEVATED HEART RATE ORDERED METOPROLOL TO BE GIVEN NOW .
--- NOTE | 2019-03-26 13:37 | Progress Note ---
DATE: 03/26/2019 Cardiology Progress Note SUBJECTIVE: The patient is feeling better. She did report episodes of chest discomfort with radiation to the left arm. OBJECTIVE: VITAL SIGNS: Temperature is 97.8, heart rate is 112, respirations are 15, blood pressure is 137/98 ox saturation is 100% on 8 L nasal cannula. GENERAL: She is a well-appearing, woman lying comfortably in bed. CARDIOVASCULAR: She is tachycardic, regular rhythm. No murmurs. LUNGS: Diminished breath sounds at bases. ABDOMEN: Soft, nontender, nondistended. EXTREMITIES: Trace edema. CARDIOVASCULAR MEDICATIONS: Reviewed. LABORATORY DATA: Hemoglobin 12.1, troponin is increasing currently 1.6, potassium 5.7, creatinine 11.35. TELEMETRY: Monitoring revealed sinus tachycardia. IMPRESSION: 1. Ubc-DQ-[id number] myocardial infarction. 2. Pulmonary edema. 3. Hypertension. 4. End-stage renal disease on hemodialysis. 5. Hyperkalemia. 6. History of supraventricular tachycardia. RECOMMENDATIONS: Continue hemodialysis for clearance and volume removal. Continue to wean oxygen. Her troponins have continued to trend upward. I have started aspirin, Plavix and heparin drip. Her echocardiogram showed overall preserved left ventricular systolic function. The patient will require cardiac catheterization likely on Tuesday of this week. Aubrey Jerome DO BM/MODL /[id number]
[2019-03-26] MEDS: ALBUTEROL/IPRATROPIUM 3 ML NEB NEB SCH ×2 (14:00→19:48)
--- NOTE | 2019-03-26 14:12 | NUR ---
Nutrition Screen Note RD Recommendation for Physician: -Continue renal diet as ordered Plan of Care: RD following, monitoring for tolerance and adequacy Nutrition reason for involvement: Diagnosis Primary Diagnose(s): NSTEMI, pulmonary edema, HTN, ESRD on HD PMH: hypertension, hyperlipidemia, supraventricular tachycardia, end-stage renal disease on hemodialysis Ht: 62in Wt: 210lb BMI: 38.4kg/m2 IBW: 110lb +/- 10% RD Assessment: (03/26) Chart reviewed. Labs and meds reviewed. 48yo F, who was admitted for SOB and coughing. Pt missed her HD treatment on 03/23 and woke up with SOB. Potassium has trend down from 7.5 to 7.5 with lactulose and Kayexalate. BNP has trend down. Visited pt in the room. Pt was getting HD during my visit. Pt ate ~50% of her lunch. No complains of nausea or vomiting. Pt had multiple BM today from meds. No chewing or swallowing difficulty reported. Pt reported some recent weight gain. Pt is followed by RD at [facility]. No further nutrition question/ concern at this time. Will continue to monitor and follow. Current Diet: Renal diet Malnutrition Evaluation (03/26/2019) The patient does not meet criteria for a specified degree of malnutrition at this time. Will re-evaluate at follow-up as appropriate. Diet Education Needs Assessment: Diet education not indicated. Nutrition Care Level: low Signed: Roselyn Strickland, , RD, LD
--- NOTE | 2019-03-26 19:00 | NUR ---
Received bedside report from day shift RN. The patient is laying on the bed, not in distress, call light within reach, bed height low, side rails up x2 and wheels lock.
--- NOTE | 2019-03-26 21:02 | NUR ---
Transferred to [facility] via WC accompanied by RN and pt's family. Pt transferred to hosp bed unassisted. Hi cuong 02 connected to wall unit. Tele box on.
[2019-03-26] MEDS: ATORVASTATIN 20 MG TAB PO SCH (21:27)
[2019-03-27] VITALS (18 sets, daily range): BP systolic 130–198; BP diastolic 58–100
[2019-03-27] MEDS: ALBUTEROL/IPRATROPIUM 3 ML NEB NEB SCH ×4 (01:12→19:20)
[2019-03-27] MEDS: METOPROLOL TARTRATE 25 MG TAB PO SCH ×3 (05:38→23:05)
[2019-03-27] MEDS: GUAIFENESIN 600 MG TAB PO SCH ×3 (05:38→23:17)
[2019-03-27 06:05] LABS: ANION GAP 22.7 mmol/L (8-16); CREATININE, SERUM 10.23 mg/dL (0.57-1.11); POTASSIUM 4.7 mmol/L (3.5-5.1)
[2019-03-27 06:30] LABS: BASOPHILS # (AUTO) 0.1 (0.0-0.1); BASOPHILS % 1.1 % (0.0-1.0); EOSINOPHILS # (AUTO) 0.3 (0.0-0.4); EOSINOPHILS % 4.1 % (0.0-6.0); HEMATOCRIT 38.3 % (34.2-44.1); HEMOGLOBIN 12.2 g/dL (12.0-16.0); LYMPHOCYTES # (AUTO) 2.1 (1.0-3.2); LYMPHOCYTES % 31.5 % (18.0-39.1); MEAN CORPUSCULAR HEMOGLOBIN 30.3 pg (28-32); MEAN CORPUSCULAR HGB CONC 31.9 g/dL (31-35); MEAN CORPUSCULAR VOLUME 95.3 fL (81-99); MONOCYTES # (AUTO) 1.1 (0.2-0.8); MONOCYTES % 17.3 % (4.4-11.3); NEUTROPHILS % 45.7 % (38.7-80.0); PLATELET COUNT 200 x10e3/uL (140-360); RED BLOOD COUNT 4.02 x10e6/uL (3.6-5.1); RED CELL DISTRIBUTION WIDTH 16.6 % (11.7-14.4)
--- NOTE | 2019-03-27 07:00 | NUR ---
received am report from rn. pt is asleep, no s/s of distress. shila light within reach, bed in lowest position, side rails up
--- NOTE | 2019-03-27 07:20 | NUR ---
Received patient from ICU at 2038 for ESRD and hyperkalemia. The patient received hemodialysis on 03/25 and 03/26 for fluid overload. The patient is laying on the bed, not in distress, call light within reach, bed height low, side rails up x2 and wheels lock.
[2019-03-27] MEDS: CLOPIDOGREL BISULFATE 75 MG TAB PO SCH (09:30)
[2019-03-27] MEDS: ASPIRIN 81 MG CHEW TAB PO SCH (09:30)
[2019-03-27] MEDS: FAMOTIDINE 20 MG TAB PO SCH ×2 (09:30→16:30)
--- NOTE | 2019-03-27 10:13 | Progress Note ---
DATE: 03/27/2019 Cardiology Progress Note SUBJECTIVE: Ms. Cabral continues to have severe chest pain radiating to her back. This is worse when lying down. PHYSICAL EXAMINATION: VITAL SIGNS: Afebrile, heart rate 95, blood pressure 116/88. CARDIOVASCULAR: Regular rhythm, tachycardic. Systolic murmur. LUNGS: Clear to auscultation bilaterally. LABORATORY DATA: Cardiac troponin is elevated at 1.6. BNP 269. TELEMETRY: Telemetry shows sinus tachycardia. ASSESSMENT: Non ST-segment elevation myocardial infarction. RECOMMENDATIONS: Cardiac cath will be performed today for ongoing chest pain and troponin elevation in addition to the CT scan of the chest to exclude for pulmonary emboli and aneurysms as cause of her pain. Prognosis is guarded. MD DINAH Schneider/MODL /[id number]
[2019-03-27] MEDS: CEFTRIAXONE SOD 1 GM/NS 50 ML 50 ML IV SCH (12:30)
[2019-03-27] MEDS: AZITHROMYCIN 500MG/NS 250 ML 250 ML IV SCH (13:00)
--- NOTE | 2019-03-27 13:14 | Diagnostic Imaging Report ---
PROCEDURE: CT scan of the chest WITH intravenous contrast, using standard protocol. TECHNIQUE: The chest was scanned utilizing a multidetector helical scanner from the lung apex through the level of the adrenal glands after the IV administration of 100 cc of Isovue 370. Coronal and sagittal multiplanar reformations were obtained. Technique modification was utilized to maintain the lowest is possible to the patient. DLP: 520.67 mGy-cm COMPARISON: [facility], DX, CHEST SINGLE (PORTABLE), 03/25/2019, 8:26. INDICATIONS: Shortness of breath FINDINGS: Lines/tubes: None. Lungs and Airways: The lungs and airways are normal with no focal abnormality demonstrated. Previously described pulmonary edema/vascular overload has resolved. Pleura: The pleural spaces are clear. Heart and mediastinum: The thyroid gland is normal. No significant mediastinal, hilar or axillary lymphadenopathy is seen. The heart and pericardium are within normal limits. Soft tissues: Normal. Abdomen: Limited contrast-enhanced views of the upper abdomen show no abnormality within the visualized liver, spleen or pancreas. The kidneys are partially visualized and appear small. The adrenal glands are normal. Bones: Mild degenerative changes of the spine. IMPRESSION: Normal chest CT. Rahat Saucedo D.O. Dictated by: Rahat Saucedo D.O. on 03/27/2019 at 13:19 Electronically approved by: Rahat Saucedo D.O. on 03/27/2019 at 13:19
[2019-03-27] MEDS ORDERED: VERAPAMIL HCL 2.5 MG/ML 2 ML VIAL ONE (13:40)
[2019-03-27] MEDS ORDERED: FENTANYL CITRATE/PF 100MCG/2 ML INJ ONE ×2 (13:40→15:03)
[2019-03-27] MEDS ORDERED: MIDAZOLAM HCL 2 MG/2 ML VIAL ONE ×4 (13:40→15:17)
[2019-03-27] MEDS ORDERED: IOPAMIDOL 370 MG/ML 200 ML INFUS..BTL INJ ONE ×3 (13:41→15:54)
[2019-03-27] MEDS ORDERED: SODIUM CHLORIDE 0.9% 1000ML 1,000 ML ONE (13:41)
[2019-03-27] MEDS ORDERED: LIDOCAINE HCL 2% LOCAL 20 ML VIAL ONE (13:41)
[2019-03-27] MEDS ORDERED: HEPARIN SOD/SOD CHLORIDE 2,000 ML ONE (13:41)
[2019-03-27] MEDS ORDERED: HYDRALAZINE HCL 20 MG/ML VIAL ONE (14:34)
[2019-03-27] MEDS ORDERED: MEPERIDINE HCL INJ 50 MG/ML INJ ONE (14:52)
[2019-03-27] MEDS ORDERED: PROMETHAZINE HCL (IM) 25 MG/ML VIAL ONE (14:52)
[2019-03-27] MEDS ORDERED: METOPROLOL TARTRATE INJ 1 MG/ML VIAL ONE (14:54)
[2019-03-27] MEDS ORDERED: SODIUM CHLORIDE 0.9% 50ML 50 ML ONE (14:55)
[2019-03-27] MEDS ORDERED: BIVALRIUDIN 250 MG/VIAL VIAL IV ONE (14:55)
[2019-03-27] MEDS ORDERED: EPTIFIBATIDE 10 ML ONE (15:00)
[2019-03-27] MEDS ORDERED: KETOROLAC TROMETHAMINE 30 MG/ML VIAL ONE (15:08)
[2019-03-27] MEDS ORDERED: TICAGRELOR 90 MG TABLET ONE (15:16)
[2019-03-27] MEDS ORDERED: ASPIRIN 325 MG TAB ONE (15:16)
[2019-03-27] MEDS ORDERED: DIPHENHYDRAMINE HCL INJ 50 MG/ML VIAL ONE (15:16)
--- NOTE | 2019-03-27 15:55 | NUR ---
1555p Received pt in Rm #9 [facility] .DR Little rt TR band approach. Rt TR band site intact No gross issues pain pallor pressure or dysthymia. 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 02 on 3lnc .Has c/o pain left side chest .Reported to Dr Little via text and call to office. Monitor ST no ectopics. Rt Ij saline lock dry and intact . No s/s infiltration.No iv infusing. Family called to bedside. ds/rn
[2019-03-27] MEDS ORDERED: HYDROMORPHONE 2MG/ML 2 MG/ML ML ONE (16:32)
--- NOTE | 2019-03-27 16:35 | NUR ---
1635 Rocking in bed states left 07/05 CP Notified MD wants Dilaudid ivp now. Gave 2mg ivp slowly and received imediate relief 3lnc reains in place monitor ST no ectopics. 167/58 99% 3lnc as ordered q2hrs prn Report phoned to ICU staff nurse Rm 193 No gross issuess with paloor Only bp cuff application possible to rt leg Has left arm fistula positive buit Due for HD tomorrow. Rt TR band intact No oozing or bleeding. Normal neurovascular function. Rt Ij Intact saline off No s/s infiltration Significant other st bedside for transfor Hand off completed with Leana CM. charity/rn
--- NOTE | 2019-03-27 17:20 | NUR ---
Patient to ICU 193. HR 107, 161/84, RR 17, 100% on Room Air.
--- NOTE | 2019-03-27 18:20 | NUR ---
Paged Dr Cain, answered by Keli to report hypertension. advised to contact Dr Little. Paged Dr Little.
[2019-03-27] MEDS: HYDRALAZINE HCL 20 MG/ML VIAL IV PRN ×2 (18:35→21:06)
[2019-03-27] MEDS ORDERED: KETOROLAC TROMETHAMINE 30 MG/ML VIAL IV PRN (18:45)
[2019-03-27] MEDS ORDERED: HYDROMORPHONE 2MG/ML 2 MG/ML ML IV PRN (18:45)
--- NOTE | 2019-03-27 18:55 | Operative Report ---
DATE OF PROCEDURE: 03/27/2019 SURGEON: Niall Little MD INDICATION: Tnc-IV-hlkwunc elevation myocardial infarction. PROCEDURES PERFORMED: 1. Left heart catheterization, selective coronary angiography. 2. Stent placement to the mid and proximal left anterior descending artery. 3. Stent placement to the obtuse marginal branch of the circumflex artery. 4. Deployment of right wrist TR band. COMPLICATIONS: None. RECOMMENDATIONS: Dual antiplatelet therapy for at least 6 months. DESCRIPTION OF PROCEDURE: Access obtained in the right radial artery. A 5-Dominican sheath was placed. The patient received intravenous Angiomax and Integrilin for anticoagulation. The left main was cannulated using an ERAD 5-Dominican guiding catheter. Left main was widely patent. Ramus intermedius; small vessel, 50% to 60% stenosis. Left anterior descending artery, proximal and mid 80% stenosis. Obtuse marginal branch of the circumflex artery, 80% stenosis. Right coronary artery, 50% mid stenosis. A decision was made to intervene on the LAD and obtuse marginal branches. A 3.0 x 30 mm stent was deployed in the left anterior descending artery and a 2.25 x 15 mm stent was deployed in the obtuse marginal branch. Excellent end result, less than 10% residual stenosis, JONATHAN-3 flow in . DICTATION ENDS HERE Niall Little MD KSB/MODL /[id number]
[2019-03-27] MEDS ORDERED: ONDANSETRON HCL INJ 2MG/ML 2ML 2 MG/ML VIAL IV PRN (21:00)
--- NOTE | 2019-03-27 22:00 | NUR ---
TR band removed, site looks good, no s/s of complications, pulse strong, capillary refill <3sec, pt denies any discomfort. Site cleansed with alcohol swab, gauze applied & wrapped with coban. Will continue to reassess. Pt education for post procedure TR band precautions provided. Pt verbalizes understanding of education.
[2019-03-27] MEDS: ATORVASTATIN 20 MG TAB PO SCH (23:03)
[2019-03-28] VITALS (23 sets, daily range): BP systolic 93–183; BP diastolic 54–117
[2019-03-28] MEDS: ALBUTEROL/IPRATROPIUM 3 ML NEB NEB SCH ×3 (01:25→13:00)
[2019-03-28 05:07] LABS: BASOPHILS # (AUTO) 0.1 (0.0-0.1); BASOPHILS % 0.6 % (0.0-1.0); EOSINOPHILS # (AUTO) 0.1 (0.0-0.4); EOSINOPHILS % 1.1 % (0.0-6.0); HEMATOCRIT 36.8 % (34.2-44.1); HEMOGLOBIN 12.3 g/dL (12.0-16.0); LYMPHOCYTES # (AUTO) 1.6 (1.0-3.2); LYMPHOCYTES % 16.4 % (18.0-39.1); MEAN CORPUSCULAR HEMOGLOBIN 30.8 pg (28-32); MEAN CORPUSCULAR HGB CONC 33.4 g/dL (31-35); MONOCYTES % 10.4 % (4.4-11.3); PLATELET COUNT 248 x10e3/uL (140-360); RED CELL DISTRIBUTION WIDTH 16.5 % (11.7-14.4)
[2019-03-28 05:31] LABS: ANION GAP 25.5 mmol/L (8-16); CALCIUM 9.8 mg/dL (8.4-10.2); CREATININE, SERUM 12.54 mg/dL (0.57-1.11); POTASSIUM 4.5 mmol/L (3.5-5.1)
[2019-03-28] MEDS ORDERED: ZITHROMAX500 MG PO (05:34)
[2019-03-28] MEDS ORDERED: CEFTIN PO (05:34)
[2019-03-28] MEDS ORDERED: MUCINEX DM ER1 EACH PO (05:34)
[2019-03-28] MEDS ORDERED: LOSARTAN POTASSIUM 100 MG TAB PO SCH (05:45)
[2019-03-28] MEDS: AMLODIPINE BESYLATE 10 MG TAB PO SCH ×2 (06:52→09:00)
[2019-03-28] MEDS: GUAIFENESIN 600 MG TAB PO SCH ×2 (06:53→12:00)
[2019-03-28] MEDS: METOPROLOL TARTRATE 25 MG TAB PO SCH ×2 (06:53→14:45)
[2019-03-28] MEDS ORDERED: AMLODIPINE BESYLATE 10 MG TAB PO SCH (09:00)
[2019-03-28] MEDS ORDERED: LORAZEPAM INJ 2 MG/ML VIAL IV ONE (09:30)
[2019-03-28] MEDS: FAMOTIDINE 20 MG TAB PO SCH (10:53)
[2019-03-28] MEDS: ASPIRIN 81 MG CHEW TAB PO SCH (10:53)
[2019-03-28] MEDS: CLOPIDOGREL BISULFATE 75 MG TAB PO SCH (10:54)
--- NOTE | 2019-03-28 11:02 | NUR ---
patient anxious at start of hemodialysis treatment. I notified Dr. Araceli STANFORD Sheba. new order for one time dose of Ativan given with a good effect. patient much more relaxed and is tolerating HD well. no noted distress at this time. okay with discharge home after hemodialysis by cardiology and attending.
--- NOTE | 2019-03-28 11:23 | Progress Note ---
DATE: 03/28/2019 Cardiology Progress Note SUBJECTIVE: The patient is feeling better. Denies any chest pain or shortness of breath. OBJECTIVE: VITAL SIGNS: Temperature is 98.1, heart rate is 101, respirations are 16, blood pressure is 197/92, ox saturation 98% on room air. GENERAL: Well appearing. No apparent distress. CARDIOVASCULAR: Regular rhythm. Tachycardic. No murmurs. LUNGS: Diminished breath sounds at bases. ABDOMEN: Soft, nontender, nondistended. EXTREMITIES: No clubbing, cyanosis or edema. VASCULAR: 2+ pulses. CARDIOVASCULAR MEDICATIONS: Reviewed. LABORATORY DATA: Reviewed. Cardiac catheterization revealed coronary stenosis status post percutaneous coronary intervention. IMPRESSION: 1. Zzd-MA-bgovwifzu myocardial infarction. 2. Coronary artery disease. 3. End-stage renal disease. 4. Hypertension. 5. Hyperlipidemia. 6. Obesity. RECOMMENDATIONS: Continue dual antiplatelet therapy. I provided prescriptions for Brilinta, Toprol-XL, and atorvastatin. Continue all other current antihypertensives and increase as tolerated. Continue dialysis with ultrafiltration for volume removal. The patient may be discharged from a cardiovascular standpoint with outpatient followup. Aubrey Jerome DO BM/MODL /[id number]
[2019-03-28] MEDS: CEFTRIAXONE SOD 1 GM/NS 50 ML 50 ML IV SCH (13:00)
[2019-03-28] MEDS: AZITHROMYCIN 500MG/NS 250 ML 250 ML IV SCH (13:30)
--- NOTE | 2019-03-28 14:07 | NUR ---
PT DISCUSSED IN BARRIER ROUNDS, MISSED DIALYSIS CAME TO ED AND SINCE HAS HAD 5 LITERS REMOVED, BEEN TO RN CLINICAL COORDINATOR AND 2 STENTS YESTERDAY, DIALYSIS TODAY THEN SET UP FOR DISCHARGE. NO NEEDS FROM CASE MANAGEMENT.
--- NOTE | 2019-03-28 14:34 | NUR ---
iv antibiotics and bp medications administered after completion of hemodialysis.
--- NOTE | 2019-03-28 15:50 | NUR ---
patient discharged per Dr. Cain order. instructed patient to f/u with pcp, cardiology and renal MD's per their instructions. patient has scheduled HD chair M, W, F. instructed patient with medications to continue at home and which medications to stop. reviewed their indications and side effects. right ej removed. no issues. bp 142/81 at discharge. patient escorted to private auto via wheelchair with all of her belongings and prescriptions. patient verbalized understanding of discharge instructions.
--- NOTE | 2019-03-28 20:55 | Discharge Summary ---
ADMISSION DIAGNOSES: Acute respiratory failure due to missed dialysis treatment, hyperkalemia, community-acquired pneumonia present on admission, fluid overload with pulmonary edema, obesity, hypertension, elevated troponin. DISCHARGE DIAGNOSES: Acute respiratory failure due to missed dialysis treatment, hyperkalemia, community-acquired pneumonia present on admission, fluid overload with pulmonary edema, obesity, hypertension, elevated troponin, non-STEMI. HISTORY: The patient has a history of hypertension and end-stage renal disease with dialysis on Tuesday, Tuesday, and Tuesday. SURGICAL HISTORY: Left AV fistula placement, right chest Port-A-Cath, and hysteroscopy. FAMILY HISTORY: The patient's mom, grandma, and sister have diabetes. SOCIAL HISTORY: Noncontributory. HOSPITAL COURSE: A 48-year-old female admitted to the ER with complaints of shortness of breath and wheezing that began after waking up from a nap on Tuesday. She missed dialysis on Tuesday due to work obligations. Tuesday her symptoms continued to worsen, so she came to the ER. She was placed on BiPAP in the ER and the potassium was found to be 7.5 on admission. She was quickly weaned off the BiPAP and given a cocktail to bring down the potassium. She was given dialysis two days in a row per Nephrology recommendation. Her troponin was found to be elevated, so Cardiology was consulted. She had a heart catheterization and required two stents including one to the LAD. On admission, her CT of the chest showed normal CT. On admission, her BNP was 798 and came down to the 200s prior to discharge. The patient will follow up with primary care in 1 to 2 weeks. Follow her normal dialysis schedule and follow up with Cardiology as discussed. The patient understands discharge instructions and agrees to plan. She will discharge home with her normal medicines plus Zithromax, Mucinex, and Ceftin. Dictated by Sheba Vicente NP MD CISCO Frost/EARL /[id number]
== END 2019-03-28 15:54 | disposition home or self-care (01) | DRG 246 ==
LOC: ER 07:46 → ERHOLD 10:01 → ICU 11:06 → MED/SURG 03-26 20:39 → ICU 03-27 17:20
PROVIDERS: ADMIT Internal Medicine; ATTEND Internal Medicine
PROC: 5A1D70Z Performance of Urinary Filtration, Intermittent, Less than 6 Hours Per Day (ICD-10-PCS; 2019-03-25)
PROC: 5A1D70Z Performance of Urinary Filtration, Intermittent, Less than 6 Hours Per Day (ICD-10-PCS; 2019-03-26)
PROC: 027135Z Dilation of Coronary Artery, Two Arteries with Two Drug-eluting Intraluminal Devices, Percutaneous Approach (ICD-10-PCS; principal; 2019-03-27)
PROC: 4A023N7 Measurement of Cardiac Sampling and Pressure, Left Heart, Percutaneous Approach (ICD-10-PCS; 2019-03-27)
PROC: B2111ZZ Fluoroscopy of Multiple Coronary Arteries using Low Osmolar Contrast (ICD-10-PCS; 2019-03-27)
PROC: 5A1D70Z Performance of Urinary Filtration, Intermittent, Less than 6 Hours Per Day (ICD-10-PCS; 2019-03-28)
DX: I21.4 Non-ST elevation (NSTEMI) myocardial infarction (principal); J96.00 Acute respiratory failure, unspecified whether with hypoxia or hypercapnia; J18.9 Pneumonia, unspecified organism; N18.6 End stage renal disease; I13.2 Hypertensive heart and chronic kidney disease with heart failure and with stage 5 chronic kidney disease, or end stage renal disease; E87.2 Acidosis; E87.5 Hyperkalemia; E66.9 Obesity, unspecified; Z68.36 Body mass index [BMI] 36.0-36.9, adult; Z99.2 Dependence on renal dialysis; I25.10 Atherosclerotic heart disease of native coronary artery without angina pectoris; E78.5 Hyperlipidemia, unspecified; I50.9 Heart failure, unspecified
CPT/HCPCS: 36415; 71045; 71260; 80048; 80053; 81025; 82550; 82553; 82948; 83605; 83735; 83880; 84484; 85025; 85610; 85730; 87040; 90962; 92928; 92929; 93005; 93306; 93454; 94640; 94660; 94760; 99284; C1725; C1769; C1874; C1887; J0360; J0456; J0583; J0610; J0696; J1200; J1327; J1644; J1817; J1885; J1940; J2001; J2060; J2175; J2250; J2550; J3010; J7030; J7050; J7799; Q9967

== ENCOUNTER 2019-06-14 20:49 | Observation (INO) | payer BC, MEDICARE ==
[~2019-06-14] VITALS: Ht 157.5 cm; Wt 89.8 kg
[2019-06-14 21:28] LABS: BASOPHILS # (AUTO) 0.1 (0.0-0.1); BASOPHILS % 0.7 % (0.0-1.0); EOSINOPHILS # (AUTO) 0.2 (0.0-0.4); EOSINOPHILS % 1.4 % (0.0-6.0); HEMATOCRIT 34.1 % (34.2-44.1); HEMOGLOBIN 10.9 g/dL (12.0-16.0); LYMPHOCYTES # (AUTO) 1.2 (1.0-3.2); LYMPHOCYTES % 10.2 % (18.0-39.1); MEAN CORPUSCULAR HEMOGLOBIN 28.2 pg (28-32); MEAN CORPUSCULAR VOLUME 88.3 fL (81-99); MONOCYTES # (AUTO) 0.6 (0.2-0.8); MONOCYTES % 4.9 % (4.4-11.3); NEUTROPHILS # (AUTO) 9.8 (2.1-6.9); NEUTROPHILS % 82.5 % (38.7-80.0); PLATELET COUNT 312 x10e3/uL (140-360); RED BLOOD COUNT 3.86 x10e6/uL (3.6-5.1); RED CELL DISTRIBUTION WIDTH 19.2 % (11.7-14.4)
[2019-06-14 21:38] LABS: INR 0.98; PROTHROMBIN TIME 13.5 seconds (11.9-14.5)
[2019-06-14 21:48] LABS: ALBUMIN/GLOBULIN RATIO 0.9 (0.8-2.0); ANION GAP 25.9 mmol/L (8-16); CALCIUM 8.7 mg/dL (8.4-10.2); CREATININE, SERUM 14.32 mg/dL (0.57-1.11)
[2019-06-14 21:50] LABS: POTASSIUM 5.9 mmol/L (3.5-5.1)
[2019-06-14 21:54] LABS: CREATINE KINASE MB 1.4 ng/mL (0-5.0)
[2019-06-14] MEDS ORDERED: SOD POLYSTYRENE SULFONATE SUSP 15 GM/60 ML BTL PO ONE (22:15)
[2019-06-14] MEDS ORDERED: ONDANSETRON HCL INJ 2MG/ML 2ML 2 MG/ML VIAL IV ONE (22:15)
[2019-06-14] MEDS ORDERED: MORPHINE SULFATE 2 MG/ML SYR 1ML IV ONE (22:15)
[2019-06-14] MEDS ORDERED: LORAZEPAM INJ 2 MG/ML VIAL IV ONE (22:15)
[2019-06-14] MEDS ORDERED: INSULIN REGULAR, HUMAN 100 UNIT/1 ML 3ML VIAL IV ONE (22:15)
[2019-06-14] MEDS ORDERED: CALCIUM CHLORIDE 10% 1.36 MEQ/ML 10ML SYR IV ONE (22:15)
[2019-06-14] MEDS ORDERED: SODIUM BICARBONATE 8.4% INJ 50 ML SYR IV ONE (22:15)
[2019-06-14] MEDS ORDERED: DEXTROSE 50% SYRINGE 50 ML IV ONE (22:30)
--- NOTE | 2019-06-14 22:35 | Diagnostic Imaging Report ---
Examination: Single AP view of the chest. COMPARISON: Portable chest 03/25/2019 INDICATION: Shortness of breath IMPRESSION: 1. Lines and Tubes: None 2. Lungs are well-inflated. Bilateral moderate interstitial and alveolar opacities extending from the isabella, consistent with pulmonary edema. No effusion or consolidation. 3. Cardiomediastinal silhouette is normal. Central pulmonary venous congestion. 4. No acute bony abnormalities. Signed by: Dr. Anthony Alexandra M.D. on 06/14/2019 10:32 PM
[2019-06-14] MEDS ORDERED: SODIUM CHLORIDE 0.9% 50ML 50 ML ONE (22:52)
--- NOTE | 2019-06-14 23:54 | NUR ---
[facility] PER DR MAGAÑA
--- NOTE | 2019-06-14 23:55 | NUR ---
DELLA CM FROM [facility] CALLED BACK, WILL DO DYALYSIS, DYALYSIS NURSE IS INSIDE THE HOSPITAL CURRENTLY
[2019-06-15] MEDS ORDERED: ONDANSETRON HCL INJ 2MG/ML 2ML 2 MG/ML VIAL IV PRN (01:30)
[2019-06-15] MEDS ORDERED: MORPHINE SULFATE 2 MG/ML SYR 1ML IV PRN (01:30)
[2019-06-15] MEDS ORDERED: LORAZEPAM INJ 2 MG/ML VIAL IV PRN (01:45)
[2019-06-15] MEDS ORDERED: DEXTROSE 50% SYRINGE 50 ML IV PRN ×2 (01:45)
[2019-06-15] MEDS ORDERED: HYDRALAZINE HCL 20 MG/ML VIAL IV PRN ×2 (01:45→07:15)
[2019-06-15] MEDS ORDERED: SODIUM CHLORIDE 0.9% 1000ML 2,000 ML ONE (02:36)
[2019-06-15] MEDS: INSULIN REGULAR, HUMAN 100 UNIT/1 ML 3ML VIAL SQ SCH ×2 (06:00→11:22)
--- OUTSIDE RECORDS SUMMARY | 2019-06-15 06:04 | XMS REPORT | Continuity of Care Document ---
Author Author [employer] Address Unknown Phone Unavailable Care Team Providers Care Building Services Coordinator Name Role Phone HealthTeacher / GoNoodle Unavailable Unavailable Problems Problem Status Onset Date Classification Date Reported Comments Source Hypertensive chronic kidney disease with stage 5 chronic kidney disease or end stage renal disease 01/04/2018 04/04/2018 [facility] NA Active 12/21/2017 [facility] N18.6 Active 12/21/2017 [facility] End stage renal disease 04/04/2018 [facility] Anemia in chronic kidney disease 04/04/2018 [facility] Supraventricular tachycardia 04/04/2018 [facility] Dependence on renal dialysis 04/04/2018 [facility] Hyperlipidemia, unspecified 04/04/2018 [facility] Medications Medication Details Route Status Patient Instructions Ordering Provider Order Date [facility] phenylephrine (ANES) Route: IV, Drug form: INJ, ONCE, Stop date: 12/27/17 10:49:00 CDT Inactive 12/27/2017 [facility] ondansetron (ANES) Route: IV, Drug form: INJ, ONCE, Stop date: 12/27/17 10:49:00 CDT Inactive 12/27/2017 [facility] propofol (ANES) Route: IV, Drug form: INJ, ONCE, Stop date: 12/27/17 10:24:00 CDT Inactive 12/27/2017 [facility] dexamethasone (ANES) Route: IV, Drug form: INJ, ONCE, Stop date: 12/27/17 10:24:00 CDT Inactive 12/27/2017 [facility] fentaNYL (ANES) Route: IV, Drug form: INJ, ONCE, Stop date: 12/27/17 10:24:00 CDT Inactive 12/27/2017 [facility] midazolam (ANES) Route: IV, Drug form: SOLN, ONCE, Stop date: 12/27/17 10:24:00 CDT Inactive 12/27/2017 [facility] Dexamethasone 4 mg, 1 mL, Route: IVP, Drug form: INJ, ONCE, Dosing Weight 77.727, kg, PRN Nausea & Vomiting, Start date: 12/27/17 9:50:00 CDTNotes: Concentration: 4mg/ml Inactive 12/27/2017 [facility] Ondansetron 4 mg, 2 mL, Route: IVP, Drug form: INJ, ONCE, Dosing Weight 77.727, kg, PRN Nausea & Vomiting, Start date: 12/27/17 9:50:00 CDTNotes: (Same as: Zofran) MEDICATION WASTE Product Size: 4 mg Product Wasted: ___ mg Inactive 12/27/2017 [facility] Fentanyl 25 microgram, 0.5 mL, Route: IVP, Drug form: INJ, Q5Min, Dosing Weight 77.727, kg, PRN Pain Score 4-6, Priority: Routine, Start date: 12/27/17 9:50:00 CDT, Duration: 4 doses or times, Stop date: Limited # of timesNotes: (Same as: Sublimaze) Preservative free. Inactive 12/27/2017 [facility] Flumazenil 0.2 mg, 2 mL, Route: IVP, Drug form: INJ, PRN, Dosing Weight 77.727, kg, PRN Benzodiazepine Reversal, Initial dose, Start date: 12/27/17 9:50:00 CDT, Duration: 30 day, Stop date: 01/26/18 9:49:00 CDT Notes: (Same as: Romazicon) Inactive 12/27/2017 [facility] Naloxone 0.4 mg, 1 mL, Route: IVP, Drug form: INJ, Q2MIN, Dosing Weight 77.727, kg, PRN Narcotic Reversal, Start date: 12/27/17 9:50:00 CDT, Duration: 8 doses or times, Stop date: Limited # of timesNotes: Same as Narcan Inactive 12/27/2017 [facility] Acetaminophen 1,000 mg, 100 mL, Route: IV, Drug form: INJ, ONCE, Dosing Weight 77.727, kg, PRN Pain Score 1-3, Start date: 12/27/17 9:50:00 CDTNotes: Infuse over 15 minutes Do not exceed 4gm/day of acetaminophen MEDICATION WASTE Product Size: 1000 mg Product Wasted: ___ mg Inactive 12/27/2017 [facility] Hydralazine 10 mg, 0.5 mL, Route: IVP, Drug form: INJ, Q20Min, Dosing Weight 77.727, kg, PRN Elevated BP, Start date: 12/27/17 9:50:00 CDT, Duration: 2 doses or times, Stop date: Limited # of timesNotes: (Same as: Apresoline) Push over 5 minutes Inactive 12/27/2017 [facility] Labetalol 10 mg, 2 mL, Route: IVP, Drug form: INJ, Q5Min, Dosing Weight 77.727, kg, PRN Elevated BP, Start date: 12/27/17 9:50:00 CDT, Duration: 5 doses or times, Stop date: Limited # of times Inactive 12/27/2017 [facility] vancomycin (ANES) 1000 mg Route: IV, Drug form: INJ, Start date: 12/27/17 9:48:00 CDT, Stop date: 12/27/17 10:48:00 CDT Inactive 12/27/2017 [facility] Sodium Chloride 0.9% IV (ANES) 500 mL Route: IV, Total Volume: 500, Start date: 12/27/17 9:41:00 CDT, Stop date: 12/27/17 10:41:00 CDT Inactive 12/27/2017 [facility] acetaminophen-codeine #3 2 tab, Route: PO, Drug Form: TAB, Dosing Weight 77.727, kg, Q4H, PRN Pain Score 4-6, Start date: 12/27/17 8:22:00 CDT, Duration: 30 day, Stop date: 01/26/18 8:21:00 CDTNotes: Do not exceed 4gm/day of acetaminophen. (Same as: Tylenol with Codeine # 3) Inactive 12/27/2017 [facility] Vancomycin 1,000 mg, Route: IVPB, PRE [...] mg Product Wasted: ___ mg Inactive 12/27/2017 [facility] Colchicine 0.6 MG Oral Tablet 0.6 mg=1 tab, PO, Daily, PRN gout flare ups Active 12/26/2017 [facility] metoprolol tartrate 100 mg oral tablet 100 mg=1 tab, PO, BID, 0 Refill(s) Active 12/26/2017 [facility] amLODIPine 10 mg oral tablet 10 mg=1 tab, PO, BID Active 12/26/2017 [facility] RenaPlex oral tablet 1 tab, PO, Daily Active 12/26/2017 [facility] Allergies, Adverse Reactions, Alerts Substance Category Reaction Severity Reaction type Status Date Reported Comments Source NKFA Assertion Food allergy Active [facility] Immunizations No Data Provided for This [...] should be multiplied by the estimated BMI. [facility] CHEM PANEL POC Carbon Dioxide 29 24 - 32 12/27/2017 [facility] CHEM PANEL POC Creatinine 6.3 0.5 - 1.4 12/27/2017 [facility] CHEM PANEL POC BUN 27 7 - 22 12/27/2017 [facility] CHEM PANEL POC Glucose 96 70 - 99 12/27/2017 [facility] CHEM PANEL POC Ion Ca 1.04 1.05 - 1.25 12/27/2017 [facility] CHEM PANEL POC Sodium 137 135 - 145 12/27/2017 [facility] CHEM PANEL POC Hematocrit 34.0 36.0 - 48.0 12/27/2017 [facility] CHEM PANEL POC Hemoglobin 11.6 12.0 - 16.0 12/27/2017 [facility] CHEM PANEL POC AGAP 16.0 10.0 - 20.0 12/27/2017 [facility] CHEM PANEL POC Chloride 97 95 - 109 12/27/2017 [facility] CHEM PANEL POC Potassium 3.9 3.5 - 5.1 12/27/2017 [facility] CHEM PANEL eGFR 9 12/27/2017 Result [...] should be multiplied by the estimated BMI. [facility] CHEM PANEL Calcium Lvl 8.3 8.5 - 10.5 12/27/2017 [facility] CHEM PANEL CO2 28 24 - 32 12/27/2017 [facility] CHEM PANEL Creatinine Lvl 6.00 0.50 - 1.40 12/27/2017 [facility] CHEM PANEL Glucose Lvl 92 70 - 99 12/27/2017 [facility] CHEM PANEL BUN 26 7 - 22 12/27/2017 [facility] CHEM PANEL Potassium Lvl 3.8 3.5 - 5.1 12/27/2017 [facility] CHEM PANEL Chloride Lvl 99 95 - 109 12/27/2017 [facility] CHEM PANEL Sodium Lvl 137 135 - 145 12/27/2017 [facility] CHEM PANEL AGAP 13.8 10.0 - 20.0 12/27/2017 [facility] HEMATOLOGY PT 13.3 12.0 - 14.7 12/27/2017 [facility] HEMATOLOGY PTT 80.0 22.9 - 35.8 12/27/2017 [facility] HEMATOLOGY INR 1.01 0.85 - 1.17 12/27/2017 [facility] HEMATOLOGY WBC 7.7 3.7 - 10.4 12/27/2017 [facility] HEMATOLOGY RBC 3.69 4.20 - 5.40 12/27/2017 [facility] Hct 32.0 36.0 - 48.0 12/27/2017 [facility] Hgb 10.5 12.0 - 16.0 12/27/2017 [facility] MCV 86.7 80.0 - 98.0 12/27/2017 [facility] MCH 28.5 27.0 - 31.0 12/27/2017 [facility] RDW 18.1 11.5 - 14.5 12/27/2017 [facility] Platelet 186 133 - 450 12/27/2017 [facility] MCHC 32.9 32.0 - 36.0 12/27/2017 [facility] MPV 8.6 7.4 - 10.4 12/27/2017 [facility] Monocytes # 1.0 0.0 - 0.8 12/27/2017 [facility] Lymphocytes # 1.4 1.0 - 5.5 12/27/2017 [facility] HEMATOLOGY Segs-Bands # 4.9 1.5 - 8.1 12/27/2017 [facility] Basophils 0.8 0.0 - 1.0 12/27/2017 [facility] Monocytes 13.4 2.0 - 12.0 12/27/2017 [facility] Lymphocytes 18.6 20.0 - 40.0 12/27/2017 [facility] Segs 63.1 45.0 - 75.0 12/27/2017 [facility] Eosinophils 4.1 0.0 - 4.0 12/27/2017 [facility] Basophils # 0.1 0.0 - 0.2 12/27/2017 [facility] Eosinophils # 0.3 0.0 - 0.5 12/27/2017 [facility] URINE CHEM U Preg Negative (12/27/17 6:48 AM) Negative 12/27/2017 [facility] Pathology Reports No Data Provided for [...] are intact. IMPRESSION: No active process. SL: [id number] 12/27/2017 [facility] Consultation Notes No Data Provided for This Section Discharge Summaries No Data Provided for This Section History and Physicals No Data Provided for This Section Vital Signs Vital Sign Value Date Comments Source Systolic (mm Hg) 120 12/27/2017 [facility] Diastolic (mm Hg) 78 12/27/2017 [facility] Respitory Rate 14 12/27/2017 [facility] Systolic (mm Hg) 104 12/27/2017 [facility] Diastolic (mm Hg) 67 12/27/2017 [facility] Respitory Rate 16 12/27/2017 [facility] Systolic (mm Hg) 119 12/27/2017 [facility] Diastolic (mm Hg) 73 12/27/2017 [facility] Respitory Rate 14 12/27/2017 [facility] Temperature Oral (F) 97.8 F 12/27/2017 [facility] Weight 77.727 12/26/2017 [facility] Height 160.02 cm 12/26/2017 [facility] BMI Calculated 30.35 12/26/2017 [facility] Encounters Location Location Details Encounter Type Encounter Number Reason For Visit Attending Provider ADM Date DC Date Status Source [facility] Day Surgery [id number] Josemanuel Mercedes 12/27/2017 12/27/2017 [facility] Procedures Procedure Code Date Perfomer Comments Source Central line insertion<sup>1</sup> [id number] 11/24/2017 R IJ [facility] Hysteroscopy [id number] 09/26/2001 [facility] Assessment and Plan No Data Provided [...] Cessation Counseling Yes entered on: 12/26/17 12/26/2017 [facility] Family History No Data Provided for This Section Advance Directives No Data Provided for This Section Functional Status No Data Provided for This Section
--- OUTSIDE RECORDS SUMMARY | 2019-06-15 06:04 | XMS REPORT | Clinical Summary ---
Author Author JULIO C [facility] Center[facility]onJaxWashington [facility] Center[facility] Address Unknown Phone Unavailable Care Team Providers Care Pharmacist Intern Name Role Phone Eyad Hernandez MD PCP [...] lanthanum (FOSRENOL) 1000 Take 1,000 mg 0 07/03/201 MG chewable tablet by mouth 3 8 (three) times daily with meals . Active aspirin-caffeine (MINOO Take 1 tablet 0 BACK AND BODY) 500-32.5 by mouth as mg TabIndications: mild needed. arthritic pain, pain Active Problems Problem Noted Date Fever 04/06/2018 Acute renal failure, unspecified acute renal failure type 11/24/2017 Shortness of breath 07/28/2017 Renal insufficiency 07/28/2017 Encounters Care Team Description Date Type Specialty Delmis Lockwood RN 08/08/2018 Documentation Transplant after 06/14/2018 Family History Medical History Relation Name Comments [...] travel history available. Last Filed Vital Signs Not on file Plan of Treatment Not on file Results Not on fileafter 06/14/2018 Insurance Payer Benefit Subscriber ID Type Phone Address Plan / Group BLUE CROSS/BLUE SHIELD BCBS OS xxxxxxxxxxxxxxx PPO [phone] [address] POS/PPO/[place] [address] O Advance Directives For more information, please contact: [facility] [address] [place] [address] Date Inactivated Comments Code Status [...]
--- OUTSIDE RECORDS SUMMARY | 2019-06-15 06:04 | XMS REPORT | Clinical Summary ---
Author Author [facility]if[facility] Organization [place] [facility] Address Unknown Phone Unavailable Care Team Providers Care Fleet Assistant Name Role Phone Casey Gordon MD PCP Allergies Not on File Medications End Date Status Medication Sig Dispensed Refills Start Date Active amLODIPine (NORVASC) 10 Take 10 mg by 0 mg tablet mouth. Active atorvastatin (LIPITOR) 40 TK 1 T PO QHS 5 MG tablet 9 Active atorvastatin (LIPITOR) 40 0 MG tablet 9 Active B,C/folic/zinc/selenometh 0 /D3/E (RENAPLEX-D ORAL) Active cefdinir (OMNICEF) 300 MG TK 1 C PO QOD 0 capsule 9 Active cefuroxime (CEFTIN) 500 TK 1 T PO QD 0 MG tablet 9 Active cinacalcet (SENSIPAR) 30 Take 30 mg by 11 MG tablet mouth daily. 9 Active fluticasone propionate SPR ONCE IEN 0 (FLONASE) 50 BID UTD 9 mcg/actuation nasal spray Active MUCINEX DM 30-600 mg TK 1 T PO Q 0 tablet extended release 12 H 9 12 hr Active lanthanum (FOSRENOL) 1000 CHEW & 11 MG chewable tablet SWALLOW 1 9 TABLET BY MOUTH TWICE A DAY WITH MEALS Active loratadine (CLARITIN) 10 TK 1 T PO QD 0 mg tablet FOR 7 DAYS 9 Active metoprolol succinate XL 0 (TOPROL-XL) 50 mg 24 hr 9 tablet Active sodium polystyrene 0 (KAYEXALATE) powder 9 Active BRILINTA 90 mg tablet TK 1 T PO BID 5 9 Active Problems No known active problems Encounters Care Team Description Date Type Specialty Josh Couch MD Patellofemoral arthritis of left knee (Primary Dx); Patellofemoral arthritis of right knee; Acute pain of both knees 05/02/2019 Office Visit Orthopedic Surgery after 06/14/2018 Family History Medical History Relation Name Comments Diabetes Mother Kera Cabral Relation Name Status Comments Mother Kera Cabral Social History Date Tobacco Use Types Packs/Day Years Used Never Smoker 0 0 Smokeless Tobacco: Never Used Drinks/Week oz/Week Comments Alcohol Use 2 Glasses of wine Yes Sex Assigned at Date Recorded Not on file Industry Job Start Date Occupation Not on file Not on file Not on file Travel End Travel History Travel Start No recent travel history available. Last Filed Vital Signs Reading Time Taken Comments Vital Sign - - Blood Pressure - - Pulse - - Temperature - - Respiratory Rate - - Oxygen Saturation - - Inhaled Oxygen Concentration 91.2 kg (201 lb) 05/02/2019 8:29 AM CDT Weight 160 cm (5' 3") 05/02/2019 8:29 AM CDT Height 35.61 05/02/2019 8:29 AM CDT Body Mass Index Plan of Treatment Health Maintenance Due Date Last Done Comments CERVICAL CANCER SCREENING 1989 BREAST CANCER SCREENING 2018 COLONOSCOPY SCREENING 2018 SHINGLES VACCINES (#1) 2018 INFLUENZA VACCINE 04/26/2019 Procedures Comments Procedure Name Priority Date/Time Associated Diagnosis XR KNEE AP STANDING Routine 05/02/2019 Acute pain of both knees BILATERAL 8:38 AM CDT XR KNEE 3 VW BILATERAL Routine 05/02/2019 Acute pain of both knees 8:38 AM CDT [place] ARTHROCENTESIS Routine 05/02/2019 Patellofemoral arthritis ASPIR&/INJ MAJOR JT/BURSA 8:10 AM CDT of left knee W/O US Patellofemoral arthritis of right knee after 06/14/2018 Results * XR Knee Ap Standing Bilateral (05/02/2019 8:38 AM CDT) Specimen Narrative Performed At [facility] Standing AP of bilateral knee shows mild medial joint space narrowing but no other significant acute or chronic bony abnormalities. Performing Organization Address City/State/Zipcode Phone Number [facility] [address] [place] [address] * XR Knee 3 Vw Bilateral (05/02/2019 8:38 AM CDT) Specimen Narrative Performed At [facility] 3 additional views of bilateral knee shows moderate patellofemoral arthrosis.On both knees there is lateral tilt of the patella subchondral cysts in the trochlear groove and in the patella bilaterally.There is also medial spurring. Performing Organization Address City/State/[facility] Phone Number [facility] [address] [place] [address] * Large Joint Arthrocentesis: knee, Bilateral knee (05/02/2019 8:10 AM CDT) Narrative Performed At Josh Couch MD 05/02/2019 11:45 AM Large Joint Arthrocentesis: knee, Bilateral knee Consent given by: patient Timeout: Immediately prior to procedure a time out was called to verify the correct patient, procedure, equipment, marketing support specialist and site/side marked as required Supporting Documentation Indications: pain Procedure Details Preparation: Patient was prepped and draped in the usual sterile fashion Ultrasound guided: no Location: knee - Bilateral knee Right side: Needle size: 22 G Approach: anterolateral Right knee medications administered: 40 mg methylPREDNISolone acetate 40 mg/mL (4ml of 1% lidocaine, 4ml of 0.5% marcaine) Patient tolerance: patient tolerated the procedure well with no immediate complications Left side: Needle size: 22 G Approach: anterolateral Left knee medications administered: 40 mg methylPREDNISolone acetate 40 mg/mL (4ml of 1% lidocaine, 4ml of 0.5% marcaine) Patient tolerance: patient tolerated the procedure well with no immediate complications after 06/14/2018 Insurance Type Payer Benefit Subscriber ID Effective Phone Address Plan / Dates Group PPO BCBS BCBS xxxxxxxxxxxxxxx 2014-[id number] CHOICE resent PPO/RAVINDER CHOI PPO Advance Directives For more information, please contact: [phone] 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
--- OUTSIDE RECORDS SUMMARY | 2019-06-15 06:08 | XMS REPORT | Clinical Summary ---
Author Author [facility] Address Unknown Phone Unavailable Care Team Providers Care Air Quality Engineer Name Role Phone Casey Gordon MD PCP [...] pain of both knees 8:38 AM CDT [place] ARTHROCENTESIS Routine 05/02/2019 Patellofemoral arthritis ASPIR&/INJ MAJOR [...] Organization Address City/State/Zipcode Phone Number [facility] [address] [place] [address] * XR Knee 3 Vw Bilateral (05/02/2019 8:38 AM CDT) Specimen Narrative Performed At [facility] 3 additional views of bilateral knee shows moderate patellofemoral arthrosis.On both knees there is lateral tilt of the patella subchondral cysts in the trochlear groove and in the patella bilaterally.There is also medial spurring. Performing Organization Address City/State/[facility] Phone Number [facility] [address] [place] [address] * Large Joint Arthrocentesis: knee, Bilateral knee (05/02/2019 8:10 AM CDT) Narrative Performed At Josh Couch MD 05/02/2019 11:45 AM Large Joint Arthrocentesis: knee, Bilateral knee Consent given by: patient Timeout: Immediately prior to procedure a time out was called to verify the correct patient, procedure, equipment, marketing support coordinator and site/side marked as required Supporting Documentation [...] Advance Directives For more information, please contact: [phone] 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
--- OUTSIDE RECORDS SUMMARY | 2019-06-15 06:08 | XMS REPORT | Clinical Summary ---
Author Author [facility] Address Unknown Phone Unavailable Care Team Providers Care Fish Machine Feeder Name Role Phone Eyad Hernandez MD PCP [...] BLUE CROSS/BLUE SHIELD BCBS OS xxxxxxxxxxxxxxx PPO [phone] [address] [place] [address] O Advance Directives For more information, please contact: [facility] [address] [place] [address] Date Inactivated Comments Code Status [...]
--- OUTSIDE RECORDS SUMMARY | 2019-06-15 06:09 | XMS REPORT | Continuity of Care Document ---
Author Author [employer] Address Unknown Phone Unavailable Care Team Providers Care Manager Machine Name Role Phone [employer] Unavailable Unavailable Problems Problem Status Onset Date Classification Date Reported Comments Source Hypertensive chronic kidney disease with stage 5 chronic kidney disease or end stage renal disease 01/04/2018 04/04/2018 [facility] NA Active 12/21/2017 [facility] N18.6 Active 12/21/2017 [facility] End stage renal disease 04/04/2018 [facility] Anemia in chronic kidney disease 04/04/2018 [facility] Supraventricular tachycardia 04/04/2018 [facility] Dependence on renal dialysis 04/04/2018 [facility] Hyperlipidemia, unspecified 04/04/2018 [facility] Medications Medication Details Route Status Patient Instructions Ordering Provider Order Date [facility] phenylephrine (ANES) Route: IV, Drug form: INJ, ONCE, Stop date: 12/27/17 10:49:00 CDT Inactive 12/27/2017 [facility] ondansetron (ANES) Route: IV, Drug form: INJ, ONCE, Stop date: 12/27/17 10:49:00 CDT Inactive 12/27/2017 [facility] propofol (ANES) Route: IV, Drug form: INJ, ONCE, Stop date: 12/27/17 10:24:00 CDT Inactive 12/27/2017 [facility] dexamethasone (ANES) Route: IV, Drug form: INJ, ONCE, Stop date: 12/27/17 10:24:00 CDT Inactive 12/27/2017 [facility] fentaNYL (ANES) Route: IV, Drug form: INJ, ONCE, Stop date: 12/27/17 10:24:00 CDT Inactive 12/27/2017 [facility] midazolam (ANES) Route: IV, Drug form: SOLN, ONCE, Stop date: 12/27/17 10:24:00 CDT Inactive 12/27/2017 [facility] Dexamethasone 4 mg, 1 mL, Route: IVP, Drug form: INJ, ONCE, Dosing Weight 77.727, kg, PRN Nausea & Vomiting, Start date: 12/27/17 9:50:00 CDTNotes: Concentration: 4mg/ml Inactive 12/27/2017 [facility] Ondansetron 4 mg, 2 mL, Route: IVP, Drug form: INJ, ONCE, Dosing Weight 77.727, kg, PRN Nausea & Vomiting, Start date: 12/27/17 9:50:00 CDTNotes: (Same as: Zofran) MEDICATION WASTE Product Size: 4 mg Product Wasted: ___ mg Inactive 12/27/2017 [facility] Fentanyl 25 microgram, 0.5 mL, Route: IVP, Drug form: INJ, Q5Min, Dosing Weight 77.727, kg, PRN Pain Score 4-6, Priority: Routine, Start date: 12/27/17 9:50:00 CDT, Duration: 4 doses or times, Stop date: Limited # of timesNotes: (Same as: Sublimaze) Preservative free. Inactive 12/27/2017 [facility] Flumazenil 0.2 mg, 2 mL, Route: IVP, Drug form: INJ, PRN, Dosing Weight 77.727, kg, PRN Benzodiazepine Reversal, Initial dose, Start date: 12/27/17 9:50:00 CDT, Duration: 30 day, Stop date: 01/26/18 9:49:00 CDT Notes: (Same as: Romazicon) Inactive 12/27/2017 [facility] Naloxone 0.4 mg, 1 mL, Route: IVP, Drug form: INJ, Q2MIN, Dosing Weight 77.727, kg, PRN Narcotic Reversal, Start date: 12/27/17 9:50:00 CDT, Duration: 8 doses or times, Stop date: Limited # of timesNotes: Same as Narcan Inactive 12/27/2017 [facility] Acetaminophen 1,000 mg, 100 mL, Route: IV, Drug form: INJ, ONCE, Dosing Weight 77.727, kg, PRN Pain Score 1-3, Start date: 12/27/17 9:50:00 CDTNotes: Infuse over 15 minutes Do not exceed 4gm/day of acetaminophen MEDICATION WASTE Product Size: 1000 mg Product Wasted: ___ mg Inactive 12/27/2017 [facility] Hydralazine 10 mg, 0.5 mL, Route: IVP, Drug form: INJ, Q20Min, Dosing Weight 77.727, kg, PRN Elevated BP, Start date: 12/27/17 9:50:00 CDT, Duration: 2 doses or times, Stop date: Limited # of timesNotes: (Same as: Apresoline) Push over 5 minutes Inactive 12/27/2017 [facility] Labetalol 10 mg, 2 mL, Route: IVP, Drug form: INJ, Q5Min, Dosing Weight 77.727, kg, PRN Elevated BP, Start date: 12/27/17 9:50:00 CDT, Duration: 5 doses or times, Stop date: Limited # of times Inactive 12/27/2017 [facility] vancomycin (ANES) 1000 mg Route: IV, Drug form: INJ, Start date: 12/27/17 9:48:00 CDT, Stop date: 12/27/17 10:48:00 CDT Inactive 12/27/2017 [facility] Sodium Chloride 0.9% IV (ANES) 500 mL Route: IV, Total Volume: 500, Start date: 12/27/17 9:41:00 CDT, Stop date: 12/27/17 10:41:00 CDT Inactive 12/27/2017 [facility] acetaminophen-codeine #3 2 tab, Route: PO, Drug Form: TAB, Dosing Weight 77.727, kg, Q4H, PRN Pain Score 4-6, Start date: 12/27/17 8:22:00 CDT, Duration: 30 day, Stop date: 01/26/18 8:21:00 CDTNotes: Do not exceed 4gm/day of acetaminophen. (Same as: Tylenol with Codeine # 3) Inactive 12/27/2017 [facility] Vancomycin 1,000 mg, Route: IVPB, [...] mg Product Wasted: ___ mg Inactive 12/27/2017 [facility] Colchicine 0.6 MG Oral Tablet 0.6 mg=1 tab, PO, Daily, PRN gout flare ups Active 12/26/2017 [facility] metoprolol tartrate 100 mg oral tablet 100 mg=1 tab, PO, BID, 0 Refill(s) Active 12/26/2017 [facility] amLODIPine 10 mg oral tablet 10 mg=1 tab, PO, BID Active 12/26/2017 [facility] RenaPlex oral tablet 1 tab, PO, Daily Active 12/26/2017 [facility] Allergies, Adverse Reactions, Alerts Substance Category Reaction Severity Reaction type Status Date Reported Comments Source NKFA Assertion Food allergy Active [facility] Immunizations No Data Provided for [...] should be multiplied by the estimated BMI. [facility] CHEM PANEL POC Carbon Dioxide 29 24 - 32 12/27/2017 [facility] CHEM PANEL POC Creatinine 6.3 0.5 - 1.4 12/27/2017 [facility] CHEM PANEL POC BUN 27 7 - 22 12/27/2017 [facility] CHEM PANEL POC Glucose 96 70 - 99 12/27/2017 [facility] CHEM PANEL POC Ion Ca 1.04 1.05 - 1.25 12/27/2017 [facility] CHEM PANEL POC Sodium 137 135 - 145 12/27/2017 [facility] CHEM PANEL POC Hematocrit 34.0 36.0 - 48.0 12/27/2017 [facility] CHEM PANEL POC Hemoglobin 11.6 12.0 - 16.0 12/27/2017 [facility] CHEM PANEL POC AGAP 16.0 10.0 - 20.0 12/27/2017 [facility] CHEM PANEL POC Chloride 97 95 - 109 12/27/2017 [facility] CHEM PANEL POC Potassium 3.9 3.5 - 5.1 12/27/2017 [facility] CHEM PANEL eGFR 9 12/27/2017 [...] should be multiplied by the estimated BMI. [facility] CHEM PANEL Calcium Lvl 8.3 8.5 - 10.5 12/27/2017 [facility] CHEM PANEL CO2 28 24 - 32 12/27/2017 [facility] CHEM PANEL Creatinine Lvl 6.00 0.50 - 1.40 12/27/2017 [facility] CHEM PANEL Glucose Lvl 92 70 - 99 12/27/2017 [facility] CHEM PANEL BUN 26 7 - 22 12/27/2017 [facility] CHEM PANEL Potassium Lvl 3.8 3.5 - 5.1 12/27/2017 [facility] CHEM PANEL Chloride Lvl 99 95 - 109 12/27/2017 [facility] CHEM PANEL Sodium Lvl 137 135 - 145 12/27/2017 [facility] CHEM PANEL AGAP 13.8 10.0 - 20.0 12/27/2017 [facility] HEMATOLOGY PT 13.3 12.0 - 14.7 12/27/2017 [facility] HEMATOLOGY PTT 80.0 22.9 - 35.8 12/27/2017 [facility] HEMATOLOGY INR 1.01 0.85 - 1.17 12/27/2017 [facility] HEMATOLOGY WBC 7.7 3.7 - 10.4 12/27/2017 [facility] HEMATOLOGY RBC 3.69 4.20 - 5.40 12/27/2017 [facility] Hct 32.0 36.0 - 48.0 12/27/2017 [facility] Hgb 10.5 12.0 - 16.0 12/27/2017 [facility] MCV 86.7 80.0 - 98.0 12/27/2017 [facility] MCH 28.5 27.0 - 31.0 12/27/2017 [facility] RDW 18.1 11.5 - 14.5 12/27/2017 [facility] Platelet 186 133 - 450 12/27/2017 [facility] MCHC 32.9 32.0 - 36.0 12/27/2017 [facility] MPV 8.6 7.4 - 10.4 12/27/2017 [facility] Monocytes # 1.0 0.0 - 0.8 12/27/2017 [facility] Lymphocytes # 1.4 1.0 - 5.5 12/27/2017 [facility] HEMATOLOGY Segs-Bands # 4.9 1.5 - 8.1 12/27/2017 [facility] Basophils 0.8 0.0 - 1.0 12/27/2017 [facility] Monocytes 13.4 2.0 - 12.0 12/27/2017 [facility] Lymphocytes 18.6 20.0 - 40.0 12/27/2017 [facility] Segs 63.1 45.0 - 75.0 12/27/2017 [facility] Eosinophils 4.1 0.0 - 4.0 12/27/2017 [facility] Basophils # 0.1 0.0 - 0.2 12/27/2017 [facility] Eosinophils # 0.3 0.0 - 0.5 12/27/2017 [facility] URINE CHEM U Preg Negative (12/27/17 6:48 AM) Negative 12/27/2017 [facility] Pathology Reports No Data Provided [...] are intact. IMPRESSION: No active process. SL: [id number] 12/27/2017 [facility] Consultation Notes No Data Provided for This Section Discharge Summaries No Data Provided for This Section History and Physicals No Data Provided for This Section Vital Signs Vital Sign Value Date Comments Source Systolic (mm Hg) 120 12/27/2017 [facility] Diastolic (mm Hg) 78 12/27/2017 [facility] Respitory Rate 14 12/27/2017 [facility] Systolic (mm Hg) 104 12/27/2017 [facility] Diastolic (mm Hg) 67 12/27/2017 [facility] Respitory Rate 16 12/27/2017 [facility] Systolic (mm Hg) 119 12/27/2017 [facility] Diastolic (mm Hg) 73 12/27/2017 [facility] Respitory Rate 14 12/27/2017 [facility] Temperature Oral (F) 97.8 F 12/27/2017 [facility] Weight 77.727 12/26/2017 [facility] Height 160.02 cm 12/26/2017 [facility] BMI Calculated 30.35 12/26/2017 [facility] Encounters Location Location Details Encounter Type Encounter Number Reason For Visit Attending Provider ADM Date DC Date Status Source [facility] Day Surgery [id number] Josemanuel Mercedes 12/27/2017 12/27/2017 [facility] Procedures Procedure Code Date Perfomer Comments Source Central line insertion<sup>1</sup> [id number] 11/24/2017 R IJ [facility] Hysteroscopy [id number] 09/26/2001 [facility] Assessment and Plan No Data [...] Cessation Counseling Yes entered on: 12/26/17 12/26/2017 [facility] Family History No Data Provided for This Section Advance Directives No Data Provided for This Section Functional Status No Data Provided for This Section
[2019-06-15 07:12] VITALS: BP 103/72
[2019-06-15] MEDS ORDERED: ACETAMINOPHEN 325 MG TAB PO PRN (07:15)
[2019-06-15] MEDS ORDERED: ACETAMINOPHEN/CODEINE 300MG - 30MG TAB PO PRN (07:15)
[2019-06-15 07:30] VITALS: BP 103/72
[2019-06-15] MEDS ORDERED: INSULIN REGULAR, HUMAN 100 UNIT/1 ML 3ML VIAL SQ SCH (07:30)
[2019-06-15] MEDS: CINACALCET 30 MG TAB PO SCH (09:40)
[2019-06-15] MEDS: AMLODIPINE BESYLATE 10 MG TAB PO SCH ×2 (09:40→17:48)
[2019-06-15] MEDS: METOPROLOL SUCCINATE 50 MG TAB XL PO SCH ×2 (09:40→17:49)
[2019-06-15 12:16] LABS: ANION GAP 15.6 mmol/L (8-16); CALCIUM 8.6 mg/dL (8.4-10.2); CREATININE, SERUM 8.62 mg/dL (0.57-1.11); POTASSIUM 4.6 mmol/L (3.5-5.1)
[2019-06-15 13:09] VITALS: BP 126/66
--- NOTE | 2019-06-15 17:23 | NUR ---
Nutrition Screen Note RD Recommendation for Physician: - Rec renal diet as medically appropriate Plan of Care: RD following, monitoring for tolerance and adequacy Nutrition reason for involvement: Diagnosis Primary Diagnose(s): Volume overload, ESRD, pulmonary edema PMH: hypertension, hyperlipidemia, supraventricular tachycardia, end-stage renal disease on hemodialysis Ht: 62in Wt: 198lb BMI: 36.2kg/m2 IBW: 110lb +/- 10% RD Assessment: (06/15) Chart reviewed. Labs and meds reviewed. 49yo F, who was admitted for volume overload due to missed HD treatment. Reviewed her old medical record, pt had frequent hx of missing HD treatment. Visited pt in the room. Pt reported good appetite without any GI complain. LBM 06/14. Pt denied any issue with chewing or swallowing. Pt was not interested in diet education. Will continue to monitor and follow. Current Diet: Renal/ ADA 1600 Malnutrition Evaluation (06/15/2019) The patient does not meet criteria for a specified degree of malnutrition at this time. Will re-evaluate at follow-up as appropriate. Diet Education Needs Assessment: Diet education not indicated. Followed by RD at [facility], pt stated I have a bible of what I can eat and cant eat. Nutrition Care Level: low Signed: Roselyn Strickland, MS, RD, LD
--- NOTE | 2019-06-15 17:42 | NUR ---
BMP RESULTS CALLED TO DR MAGAÑA, NO NEW ORDERS
--- NOTE | 2019-06-15 17:47 | NUR ---
SPOKE TO BRII AT [facility], INFORMED PATIENT WILL NEED AM DIALYSIS, CALL BACK REQUESTED, VERBALIZED UNDERSTANDING
--- NOTE | 2019-06-15 17:49 | Consultation ---
DATE OF CONSULTATION: HISTORY OF PRESENT ILLNESS: A 49-year-old female, who has underlying history of end-stage renal disease, has an AV fistula, underlying history of hypertension. Missed her dialysis, presented with shortness of breath and hyperkalemia. She was dialyzed on a stat basis. Hyperkalemia was addressed. She is breathing better. Currently on 2 L nasal oxygen. Awake, alert, resting, no apparent distress. LABS: Earlier shows hemoglobin 10.9, potassium 5.9, creatinine 14.3. BNP 1197. ALLERGIES: NO APPARENT DRUG ALLERGIES. SOCIAL HISTORY: The patient does not smoke or drink. FAMILY HISTORY: Significant for hypertension. CURRENT MEDICATIONS: She is on cinacalcet 30 mg daily. She is on hydralazine p.r.n., insulin, lorazepam p.r.n., metoprolol 100 mg p.o. b.i.d. She is on morphine p.r.n., ondansetron p.r.n. For dose schedule, please see MAR. PAST MEDICAL HISTORY: History of diabetes, diabetic kidney disease, hypertension, end-stage renal disease, congestive heart failure. PHYSICAL EXAMINATION: GENERAL: Awake, alert, oriented x3, lying supine, in no apparent distress. VITAL SIGNS: Blood pressure 120/67, pulse is 79, afebrile. HEAD AND NECK: Cornea clear. Oral mucosa moist. Neck veins flat. LUNGS: Bibasilar rales. HEART: S1 and S2 audible. ABDOMEN: Otherwise soft and nontender. No apparent visceromegaly. EXTREMITIES: Lower extremity; no edema IMPRESSION AND PLAN: Underlying end-stage renal disease, status post dialysis, hyperkalemia, fluid overload. We will repeat chemistries. Place on renal diet. Resume phosphorus binders. Please see orders. MD MIKE Mendez/EARL /[id number]
[2019-06-15 19:15] VITALS: BP 134/77
[2019-06-15 21:00] VITALS: BP 134/77
[2019-06-16] VITALS (7 sets, daily range): BP systolic 119–148; BP diastolic 64–97
[2019-06-16 05:39] LABS: BASOPHILS % 0.6 % (0.0-1.0); EOSINOPHILS # (AUTO) 0.2 (0.0-0.4); EOSINOPHILS % 2.6 % (0.0-6.0); HEMATOCRIT 30.6 % (34.2-44.1); HEMOGLOBIN 9.6 g/dL (12.0-16.0); LYMPHOCYTES # (AUTO) 1.5 (1.0-3.2); LYMPHOCYTES % 20.6 % (18.0-39.1); MEAN CORPUSCULAR HEMOGLOBIN 27.9 pg (28-32); MEAN CORPUSCULAR HGB CONC 31.4 g/dL (31-35); MONOCYTES # (AUTO) 0.8 (0.2-0.8); MONOCYTES % 10.8 % (4.4-11.3); NEUTROPHILS # (AUTO) 4.7 (2.1-6.9); PLATELET COUNT 211 x10e3/uL (140-360); RED BLOOD COUNT 3.44 x10e6/uL (3.6-5.1); RED CELL DISTRIBUTION WIDTH 19.5 % (11.7-14.4)
[2019-06-16 05:55] LABS: CALCIUM 8.4 mg/dL (8.4-10.2); CREATININE, SERUM 11.65 mg/dL (0.57-1.11)
[2019-06-16 06:09] LABS: ANION GAP 19.7 mmol/L (8-16)
[2019-06-16 06:10] LABS: POTASSIUM 5.7 mmol/L (3.5-5.1)
[2019-06-16 06:41] LABS: ALBUMIN 3.2 g/dL (3.5-5.0); BILIRUBIN,DIRECT 0.3 mg/dL (0.0-0.5)
--- NOTE | 2019-06-16 07:09 | NUR ---
Report given to oncoming nurse,walking round done
[2019-06-16] MEDS: CINACALCET 30 MG TAB PO SCH (09:15)
[2019-06-16] MEDS: AMLODIPINE BESYLATE 10 MG TAB PO SCH ×2 (09:15→20:19)
[2019-06-16] MEDS: METOPROLOL SUCCINATE 50 MG TAB XL PO SCH ×2 (09:16→20:19)
--- NOTE | 2019-06-16 15:56 | NUR ---
0800-Dr. Nesbitt called and notified of morning lab results. Per patient can go home after dialysis and does not need repeat BMP after dialysis. [facility] called to ensure patient will be dialyzed today, dialysis will be done on second shift about 1400. Patient weaned off of oxygen nasal cannula. Will continue to monitor. 1600- Dialysis nurse at bedside preparing for dialysis. Addendum: 06/16/19 at 1834 by Gi Lara RN Dr. Nesbitt rounded on pt. Per patient ok to discharge after dialysis is completed.
[2019-06-16] MEDS ORDERED: SODIUM CHLORIDE 0.9% 1000ML 2,000 ML IV PRN (16:15)
[2019-06-16] MEDS ORDERED: SODIUM CHLORIDE 0.9% 250ML 500 ML IV PRN (16:15)
--- NOTE | 2019-06-16 18:54 | NUR ---
1700- Meds not given due to dialysis in processes. Oncoming nurse aware. Dialysis to finish at approximately 1930.
--- NOTE | 2019-06-16 20:00 | NUR ---
Dialysis completed at this time.
--- NOTE | 2019-06-16 20:50 | NUR ---
Provided D/C instruction to patient at this time, patient verbalized and understand. V/S WNL. Denied pain no SOB noted. Respiration even and unlabored. Patient D/C from unit at 2030 by walking with her family with stable condition.
--- NOTE | 2019-06-20 16:31 | Discharge Summary ---
ADMISSION DIAGNOSES: 1. Respiratory distress due to pulmonary edema after skipping dialysis. 2. End-stage renal disease with missed dialysis treatment. 3. Hyperkalemia due to end-stage renal disease. 4. Hypertension with end-stage renal disease. 5. Hyperparathyroidism. 6. Obesity with a BMI of 36.2. DISCHARGE DIAGNOSES: 1. Respiratory distress due to pulmonary edema after skipping dialysis. 2. End-stage renal disease with missed dialysis treatment. 3. Hyperkalemia due to end-stage renal disease. 4. Hypertension with end-stage renal disease. 5. Hyperparathyroidism. 6. Obesity with a BMI of 36.2. HISTORY: Hypertension, end-stage renal disease with dialysis on Tuesday, Tuesday, and Tuesday, CAD with PCI, and hyperparathyroidism. SURGICAL HISTORY: Left arm AV fistula, right chest Port-A-Cath, and hysteroscopy. FAMILY HISTORY: The patient's mom, grandma, and sister have diabetes. SOCIAL HISTORY: Noncontributory. HOSPITAL COURSE: A 49-year-old female admits with shortness of breath after skipping dialysis due to inclement weather. The shortness of breath started the same day she skipped dialysis. She denies edema, cough, or fever. On admission, the patient was placed on 2 liters nasal cannula due to hypoxia. Her potassium was found to be 5.9. Chest x-ray showed moderate bilateral interstitial and alveolar opacities consistent with pulmonary edema. No effusion or consolidation. Nephrology was consulted, who started the patient on dialysis immediately. The patient got two dialysis treatments before discharging home. She will follow up with primary care and her dialysis treatments as scheduled. The patient understands discharge instructions and agrees to plan. Vital signs stable, the patient afebrile. Dictated by Sheba Vicente NP Roel Cain MD [facility] /[id number]
== END 2019-06-16 20:31 | disposition home or self-care (01) ==
LOC: ER 20:49 → INTOOBSV 23:08 → ERHOLD 23:08 → IMCU 06-15 01:23
PROVIDERS: ADMIT Internal Medicine; ATTEND Internal Medicine
DX: E87.70 Fluid overload, unspecified (principal); I13.2 Hypertensive heart and chronic kidney disease with heart failure and with stage 5 chronic kidney disease, or end stage renal disease; I50.9 Heart failure, unspecified; N18.6 End stage renal disease; J96.01 Acute respiratory failure with hypoxia; Z99.2 Dependence on renal dialysis; E11.22 Type 2 diabetes mellitus with diabetic chronic kidney disease; D64.9 Anemia, unspecified; M19.90 Unspecified osteoarthritis, unspecified site; E21.3 Hyperparathyroidism, unspecified; Z83.3 Family history of diabetes mellitus; Z82.49 Family history of ischemic heart disease and other diseases of the circulatory system; E87.1 Hypo-osmolality and hyponatremia; E87.5 Hyperkalemia; I25.10 Atherosclerotic heart disease of native coronary artery without angina pectoris; Z95.5 Presence of coronary angioplasty implant and graft; E66.9 Obesity, unspecified; Z68.36 Body mass index [BMI] 36.0-36.9, adult; E87.6 Hypokalemia; Z91.15 Patient's noncompliance with renal dialysis
CPT/HCPCS: 36415 ×3; 71045; 80048 ×2; 80053; 80076; 82550; 82553; 83880 ×2; 84484; 85025 ×2; 85610; 85730; 90935; 93005; 93306; 99284; G0378 ×3; J2270; J2405; J7030; J7799

== ENCOUNTER 2021-07-25 23:39 | Emergency (ER) | payer BC, MEDICARE ==
[~2021-07-25] VITALS: Ht 157.5 cm; Wt 89.8 kg
[2021-07-25] MEDS ORDERED: Morphine 4mg Syringe 4 MG/ML INJ IV STA (23:42)
[2021-07-25] MEDS ORDERED: ONDANSETRON HCL INJ 2MG/ML 2ML 2 MG/ML VIAL IV STA (23:42)
[2021-07-25] MEDS ORDERED: ASPIRIN 81 MG CHEW TAB PO ONE (23:45)
[2021-07-26 00:05] LABS: BASOPHILS % 0.8 % (0.0-1.0); EOSINOPHILS # (AUTO) 0.1 (0.0-0.4); EOSINOPHILS % 2.4 % (0.0-6.0); HEMATOCRIT 32.1 % (34.2-44.1); LYMPHOCYTES # (AUTO) 1.5 (1.0-3.2); LYMPHOCYTES % 29.8 % (18.0-39.1); MEAN CORPUSCULAR HEMOGLOBIN 27.8 pg (28-32); MEAN CORPUSCULAR HGB CONC 31.2 g/dL (31-35); MEAN CORPUSCULAR VOLUME 89.2 fL (81-99); MONOCYTES # (AUTO) 0.3 (0.2-0.8); MONOCYTES % 5.1 % (4.4-11.3); NEUTROPHILS % 61.7 % (38.7-80.0); PLATELET COUNT 160 x10e3/uL (140-360); RED CELL DISTRIBUTION WIDTH 19.6 % (11.7-14.4)
[2021-07-26 00:20] LABS: ALANINE AMINOTRANSFERASE 36 IU/L (0-55); ALBUMIN 3.7 g/dL (3.5-5.0); ALBUMIN/GLOBULIN RATIO 0.7 (0.8-2.0); ALKALINE PHOSPHATASE 72 IU/L (40-150); ANION GAP 24.4 mmol/L (8-16); BLOOD UREA NITROGEN 34 mg/dL (7-26); BUN/CREATININE RATIO 4 (6-25); CALCIUM 8.8 mg/dL (8.4-10.2); CARBON DIOXIDE 23 mmol/L (22-29); CHLORIDE 97 mmol/L (98-107); CREATINE KINASE 56 IU/L (29-168); CREATININE, SERUM 9.12 mg/dL (0.57-1.11); EST GLOMERULAR FILTRATION RATE 5 ML/MIN (60-); GLUCOSE 109 mg/dL (74-118); POTASSIUM 4.4 mmol/L (3.5-5.1); SODIUM 140 mmol/L (136-145)
[2021-07-26 00:40] LABS: CREATINE KINASE MB < 1.00 ng/mL (0-4.3)
[2021-07-26 01:26] VITALS: BP 170/82
== END 2021-07-26 01:39 | disposition home or self-care (01) ==
LOC: ER 23:42
DX: R07.9 Chest pain, unspecified (principal); I12.0 Hypertensive chronic kidney disease with stage 5 chronic kidney disease or end stage renal disease; E11.22 Type 2 diabetes mellitus with diabetic chronic kidney disease; N18.6 End stage renal disease; Z99.2 Dependence on renal dialysis; I25.10 Atherosclerotic heart disease of native coronary artery without angina pectoris; I50.9 Heart failure, unspecified; D64.9 Anemia, unspecified; Z20.822 Contact with and (suspected) exposure to COVID-19
CPT/HCPCS: 36415; 71045; 80053; 82550; 82553; 83880; 84484; 85025; 85379; 99284; J2405; U0002; J2270

== ENCOUNTER 2021-10-31 13:20 | Inpatient (IN) | payer BC, MEDICARE ==
[~2021-10-31] VITALS: Ht 157.5 cm; Wt 71.7 kg
[2021-10-31] VITALS (11 sets, daily range): BP systolic 107–216; BP diastolic 86–131
[~2021-10-31 13:20] MED LIST changes: +ETOMIDATE 2 MG/ML 10 ML INJ IV ONE; +SUCCINYLCHOLINE CHLORIDE 20 MG/ML 10ML VIAL ONE
[2021-10-31] MEDS ORDERED: FUROSEMIDE INJ 10 MG/ML 4 ML VIAL IV ONE (13:55)
[2021-10-31] MEDS ORDERED: FUROSEMIDE INJ 10 MG/ML 4 ML VIAL ONE (13:59)
[2021-10-31] MEDS ORDERED: LORAZEPAM INJ 2 MG/ML VIAL IV NR (14:00)
[2021-10-31 14:08] LABS: BASOPHILS # (AUTO) 0.1 (0.0-0.1); BASOPHILS % 0.9 % (0.0-1.0); EOSINOPHILS # (AUTO) 0.4 (0.0-0.4); EOSINOPHILS % 4.1 % (0.0-6.0); HEMATOCRIT 37.8 % (34.2-44.1); LYMPHOCYTES # (AUTO) 2.9 (1.0-3.2); LYMPHOCYTES % 27.8 % (18.0-39.1); MEAN CORPUSCULAR HEMOGLOBIN 28.4 pg (28-32); MEAN CORPUSCULAR HGB CONC 31.7 g/dL (31-35); MEAN CORPUSCULAR VOLUME 89.6 fL (81-99); MONOCYTES # (AUTO) 0.4 (0.2-0.8); MONOCYTES % 3.4 % (4.4-11.3); NEUTROPHILS # (AUTO) 6.5 (2.1-6.9); NEUTROPHILS % 63.6 % (38.7-80.0); PLATELET COUNT 151 x10e3/uL (140-360); RED BLOOD COUNT 4.22 x10e6/uL (3.6-5.1); RED CELL DISTRIBUTION WIDTH 19.4 % (11.7-14.4)
[2021-10-31 14:22] LABS: ALBUMIN 4.1 g/dL (3.5-5.0); ALBUMIN/GLOBULIN RATIO 0.7 (0.8-2.0); ANION GAP 25.7 mmol/L (8-16); CALCIUM 10.2 mg/dL (8.4-10.2); CREATININE, SERUM 11.27 mg/dL (0.57-1.11); POTASSIUM 3.7 mmol/L (3.5-5.1)
[2021-10-31] MEDS ORDERED: SODIUM CHLORIDE 0.9% 1000ML 1,000 ML ONE (15:27)
[2021-10-31] MEDS ORDERED: ONDANSETRON HCL INJ 2MG/ML 2ML 2 MG/ML VIAL IV PRN (18:30)
[2021-10-31] MEDS ORDERED: ZOLPIDEM TARTRATE 5 MG TAB PO PRN (18:30)
[2021-10-31] MEDS: FAMOTIDINE 20 MG/2 ML VIAL IV SCH (20:58)
[2021-10-31] MEDS: AMLODIPINE BESYLATE 10 MG TAB PO SCH (21:00)
[2021-10-31] MEDS: METOPROLOL SUCCINATE 50 MG TAB XL PO SCH (21:00)
[2021-10-31] MEDS ORDERED: LORAZEPAM INJ 2 MG/ML VIAL ONE (23:32)
[2021-10-31] MEDS: METOPROLOL TARTRATE INJ 1 MG/ML VIAL IV PRN (23:38)
[2021-10-31] MEDS: DEXMEDETOMIDINE 400MCG/NS100ML 100 ML IV PRN (23:45)
[2021-11-01] VITALS (42 sets, daily range): BP systolic 89–192; BP diastolic 65–105
[2021-11-01] MEDS: DEXMEDETOMIDINE 400MCG/NS100ML 100 ML IV PRN
[2021-11-01] MEDS ORDERED: DEXMEDETOMIDINE 400MCG/NS100ML 100 ML IV ONE (00:05)
[2021-11-01 00:07] LABS: ABG PCO2 58 mmHg (35-45); ABG PH 7.24 (7.35-7.45)
[2021-11-01 00:08] LABS: ABG HCO3 25 mmol/L (22-26); ABG PO2 45 mmHg (80-105); ABG TCO2 27
[2021-11-01] MEDS ORDERED: LORAZEPAM INJ 2 MG/ML VIAL IV PRN (00:15)
[2021-11-01] MEDS: PROPOFOL IV EMULSION 10MG/ML 100 ML IV SCH ×7 (00:41→23:17)
[2021-11-01] MEDS: NOREPINEPHRINE 8 MG/D5W 250 ML 250 ML IV SCH ×2 (00:45→21:38)
[2021-11-01] MEDS ORDERED: Vancomycin IV 1 GM in SODIUM CHLORIDE 0.9% 250ML 250 ML IV ONE (00:45)
[2021-11-01 00:48] LABS: ABG PCO2 58 mmHg (35-45); ABG PH 7.24 (7.35-7.45)
[2021-11-01 00:49] LABS: ABG HCO3 25 mmol/L (22-26); ABG PO2 45 mmHg (80-105); ABG TCO2 27
[2021-11-01] MEDS ORDERED: ALBUMIN 25% 25GM 100ML 200 ML ONE (01:17)
[2021-11-01] MEDS ORDERED: ALBUMIN 25% 25GM 100ML 0.25 GM/ML BTL IV ONE (01:30)
[2021-11-01 01:37] LABS: INR 1.34; PROTHROMBIN TIME 17.5 seconds (11.9-14.5)
[2021-11-01 02:21] LABS: ABG PCO2 32 mmHg (35-45); ABG PH 7.47 (7.35-7.45); ABG PO2 69 mmHg (80-105)
[2021-11-01 02:22] LABS: ABG HCO3 23 mmol/L (22-26); ABG TCO2 24
[2021-11-01] MEDS: MEROPENEM 500 MG in SODIUM CHLORIDE 0.9% 50ML 50 ML IV SCH ×2 (03:30→12:52)
[2021-11-01 06:28] LABS: BASOPHILS % 0.4 % (0.0-1.0); EOSINOPHILS % 0.1 % (0.0-6.0); HEMATOCRIT 25.3 % (34.2-44.1); HEMOGLOBIN 8.2 g/dL (12.0-16.0); LYMPHOCYTES # (AUTO) 1.4 (1.0-3.2); LYMPHOCYTES % 13.6 % (18.0-39.1); MEAN CORPUSCULAR HEMOGLOBIN 28.6 pg (28-32); MEAN CORPUSCULAR HGB CONC 32.4 g/dL (31-35); MEAN CORPUSCULAR VOLUME 88.2 fL (81-99); MONOCYTES # (AUTO) 0.5 (0.2-0.8); NEUTROPHILS # (AUTO) 8.1 (2.1-6.9); NEUTROPHILS % 79.7 % (38.7-80.0); PLATELET COUNT 95 x10e3/uL (140-360); RED BLOOD COUNT 2.87 x10e6/uL (3.6-5.1)
[2021-11-01 06:38] LABS: ANION GAP 23.3 mmol/L (8-16); CALCIUM 9.5 mg/dL (8.4-10.2); CREATININE, SERUM 8.4 mg/dL (0.57-1.11); POTASSIUM 4.3 mmol/L (3.5-5.1)
[2021-11-01] MEDS: FAMOTIDINE 20 MG/2 ML VIAL IV SCH (08:14)
[2021-11-01] MEDS: AMLODIPINE BESYLATE 10 MG TAB PO SCH ×2 (08:15→17:06)
[2021-11-01] MEDS: CINACALCET 30 MG TAB PO SCH (08:15)
[2021-11-01 08:48] LABS: CHOL/HDL RATIO 5.4 (3.0-3.6)
[2021-11-01] MEDS: METOPROLOL SUCCINATE 50 MG TAB XL PO SCH ×2 (08:59→17:07)
[2021-11-01] MEDS ORDERED: HEPARIN SOD (PORCINE) 5,000 UNIT/ML VIAL SC SCH (09:00)
[2021-11-01 11:06] LABS: ABG HCO3 23 mmol/L (22-26); ABG PCO2 28 mmHg (35-45); ABG PH 7.53 (7.35-7.45); ABG PO2 73 mmHg (80-105); ABG TCO2 24
[2021-11-01] MEDS ORDERED: SODIUM CHLORIDE 0.9% 1000ML 1,000 ML ONE (16:20)
[2021-11-01] MEDS: ATORVASTATIN 40 MG TAB PO SCH (20:28)
[2021-11-01] MEDS: CLOPIDOGREL BISULFATE 75 MG TAB PO SCH (20:28)
[2021-11-01] MEDS: ASPIRIN 81 MG CHEW TAB PO SCH (20:28)
[2021-11-02] VITALS (39 sets, daily range): BP systolic 94–171; BP diastolic 68–88
[2021-11-02] MEDS: MEROPENEM 500 MG in SODIUM CHLORIDE 0.9% 50ML 50 ML IV SCH ×2 (00:44→12:11)
[2021-11-02] MEDS: PROPOFOL IV EMULSION 10MG/ML 100 ML IV SCH ×5 (02:45→20:48)
[2021-11-02 05:51] LABS: BASOPHILS # (AUTO) 0.1 (0.0-0.1); BASOPHILS % 0.6 % (0.0-1.0); EOSINOPHILS # (AUTO) 0.2 (0.0-0.4); EOSINOPHILS % 2.1 % (0.0-6.0); HEMATOCRIT 25.8 % (34.2-44.1); HEMOGLOBIN 8.7 g/dL (12.0-16.0); LYMPHOCYTES # (AUTO) 0.8 (1.0-3.2); MEAN CORPUSCULAR HEMOGLOBIN 28.8 pg (28-32); MEAN CORPUSCULAR HGB CONC 33.7 g/dL (31-35); MEAN CORPUSCULAR VOLUME 85.4 fL (81-99); MONOCYTES # (AUTO) 0.4 (0.2-0.8); MONOCYTES % 3.9 % (4.4-11.3); NEUTROPHILS # (AUTO) 9.3 (2.1-6.9); NEUTROPHILS % 85.8 % (38.7-80.0); PLATELET COUNT 101 x10e3/uL (140-360); RED BLOOD COUNT 3.02 x10e6/uL (3.6-5.1)
[2021-11-02 05:57] LABS: ALBUMIN 3.5 g/dL (3.5-5.0); ALBUMIN/GLOBULIN RATIO 0.9 (0.8-2.0); ANION GAP 22.9 mmol/L (8-16); CALCIUM 9.3 mg/dL (8.4-10.2); CREATININE, SERUM 9.6 mg/dL (0.57-1.11); POTASSIUM 3.9 mmol/L (3.5-5.1)
[2021-11-02] MEDS ORDERED: SODIUM CHLORIDE 0.9% 1000ML 2,000 ML IV PRN (07:30)
[2021-11-02] MEDS ORDERED: ALBUMIN 25% 12.5GM 0.25 GM/ML BTL IV PRN (07:30)
[2021-11-02] MEDS ORDERED: ALBUMIN 25% 25GM 100ML 0.25 GM/ML BTL IV PRN (07:30)
[2021-11-02] MEDS ORDERED: SODIUM CHLORIDE 0.9% 250ML 500 ML IV PRN (07:30)
[2021-11-02] MEDS: ASPIRIN 81 MG CHEW TAB PO SCH (08:17)
[2021-11-02] MEDS: ATORVASTATIN 40 MG TAB PO SCH (08:17)
[2021-11-02] MEDS: FAMOTIDINE 20 MG/2 ML VIAL IV SCH (08:17)
[2021-11-02] MEDS: CINACALCET 30 MG TAB PO SCH (08:18)
[2021-11-02] MEDS: AMLODIPINE BESYLATE 10 MG TAB PO SCH ×2 (08:18→17:00)
[2021-11-02] MEDS: CLOPIDOGREL BISULFATE 75 MG TAB PO SCH (08:18)
[2021-11-02] MEDS: METOPROLOL SUCCINATE 50 MG TAB XL PO SCH ×2 (08:19→17:00)
[2021-11-02] MEDS ORDERED: NOREPINEPHRINE 8 MG/D5W 250 ML 250 ML IV PRN (19:00)
[2021-11-03] VITALS (36 sets, daily range): BP systolic 122–189; BP diastolic 68–89
[2021-11-03] MEDS: MEROPENEM 500 MG in SODIUM CHLORIDE 0.9% 50ML 50 ML IV SCH ×2 (00:14→13:00)
[2021-11-03] MEDS: PROPOFOL IV EMULSION 10MG/ML 100 ML IV SCH ×2 (00:14→04:05)
[2021-11-03 04:57] LABS: BASOPHILS % 0.4 % (0.0-1.0); EOSINOPHILS # (AUTO) 0.5 (0.0-0.4); EOSINOPHILS % 5.3 % (0.0-6.0); HEMATOCRIT 26.7 % (34.2-44.1); HEMOGLOBIN 8.9 g/dL (12.0-16.0); LYMPHOCYTES # (AUTO) 0.9 (1.0-3.2); LYMPHOCYTES % 9.6 % (18.0-39.1); MEAN CORPUSCULAR HEMOGLOBIN 28.7 pg (28-32); MEAN CORPUSCULAR HGB CONC 33.3 g/dL (31-35); MEAN CORPUSCULAR VOLUME 86.1 fL (81-99); MONOCYTES # (AUTO) 0.5 (0.2-0.8); MONOCYTES % 5.5 % (4.4-11.3); NEUTROPHILS # (AUTO) 7.2 (2.1-6.9); NEUTROPHILS % 78.8 % (38.7-80.0); PLATELET COUNT 127 x10e3/uL (140-360)
[2021-11-03 05:31] LABS: ALBUMIN 3.3 g/dL (3.5-5.0); ALBUMIN/GLOBULIN RATIO 0.7 (0.8-2.0); ANION GAP 18.5 mmol/L (8-16); CALCIUM 9.4 mg/dL (8.4-10.2); CREATININE, SERUM 6.67 mg/dL (0.57-1.11); POTASSIUM 3.5 mmol/L (3.5-5.1)
[2021-11-03] MEDS: ATORVASTATIN 40 MG TAB PO SCH (09:07)
[2021-11-03] MEDS: ASPIRIN 81 MG CHEW TAB PO SCH (09:07)
[2021-11-03] MEDS: FAMOTIDINE 20 MG/2 ML VIAL IV SCH (09:07)
[2021-11-03] MEDS: AMLODIPINE BESYLATE 10 MG TAB PO SCH ×2 (09:08→17:00)
[2021-11-03] MEDS: CINACALCET 30 MG TAB PO SCH (09:08)
[2021-11-03] MEDS: CLOPIDOGREL BISULFATE 75 MG TAB PO SCH (09:08)
[2021-11-03] MEDS: METOPROLOL SUCCINATE 50 MG TAB XL PO SCH ×2 (09:08→17:00)
[2021-11-03] MEDS ORDERED: ZIPRASIDONE 20 MG VIAL IM STA (22:08)
[2021-11-03] MEDS ORDERED: DEXTROSE 5% 1,000 ML IV ONE (22:24)
[2021-11-03] MEDS: DEXTROSE 5% 1,000 ML IV SCH (22:41)
[2021-11-04] VITALS (61 sets, daily range): BP systolic 96–185; BP diastolic 57–107
[2021-11-04] MEDS: MEROPENEM 500 MG in SODIUM CHLORIDE 0.9% 50ML 50 ML IV SCH ×2 (00:25→12:51)
[2021-11-04 05:04] LABS: BASOPHILS # (AUTO) 0.1 (0.0-0.1); BASOPHILS % 0.8 % (0.0-1.0); EOSINOPHILS # (AUTO) 0.6 (0.0-0.4); EOSINOPHILS % 6.8 % (0.0-6.0); LYMPHOCYTES # (AUTO) 0.9 (1.0-3.2); LYMPHOCYTES % 10.1 % (18.0-39.1); MEAN CORPUSCULAR HEMOGLOBIN 28.6 pg (28-32); MEAN CORPUSCULAR HGB CONC 33.3 g/dL (31-35); MEAN CORPUSCULAR VOLUME 85.7 fL (81-99); MONOCYTES # (AUTO) 0.7 (0.2-0.8); NEUTROPHILS # (AUTO) 6.2 (2.1-6.9); NEUTROPHILS % 73.6 % (38.7-80.0); PLATELET COUNT 144 x10e3/uL (140-360); RED BLOOD COUNT 3.15 x10e6/uL (3.6-5.1); RED CELL DISTRIBUTION WIDTH 18.8 % (11.7-14.4)
[2021-11-04 05:28] LABS: ALBUMIN 3.3 g/dL (3.5-5.0); ALBUMIN/GLOBULIN RATIO 0.7 (0.8-2.0); ANION GAP 21.5 mmol/L (8-16); CALCIUM 9.8 mg/dL (8.4-10.2); CREATININE, SERUM 8.47 mg/dL (0.57-1.11); POTASSIUM 3.5 mmol/L (3.5-5.1)
[2021-11-04] MEDS: FAMOTIDINE 20 MG/2 ML VIAL IV SCH (08:37)
[2021-11-04] MEDS: CINACALCET 30 MG TAB PO SCH (09:00)
[2021-11-04] MEDS: CLOPIDOGREL BISULFATE 75 MG TAB PO SCH (09:00)
[2021-11-04] MEDS: ATORVASTATIN 40 MG TAB PO SCH (09:00)
[2021-11-04] MEDS: AMLODIPINE BESYLATE 10 MG TAB PO SCH ×2 (09:00→15:17)
[2021-11-04] MEDS: METOPROLOL SUCCINATE 50 MG TAB XL PO SCH ×2 (09:00→15:18)
[2021-11-04] MEDS: ASPIRIN 81 MG CHEW TAB PO SCH (09:00)
[2021-11-04] MEDS ORDERED: HYDRALAZINE HCL 20 MG/ML VIAL IV PRN (11:00)
[2021-11-04] MEDS: GUAIFENESIN/CODEINE 5 ML LIQD PO PRN (16:35)
[2021-11-04] MEDS: DEXTROSE 5% 1,000 ML IV SCH (21:15)
[2021-11-05] VITALS (45 sets, daily range): BP systolic 93–154; BP diastolic 59–92
[2021-11-05] MEDS: MEROPENEM 500 MG in SODIUM CHLORIDE 0.9% 50ML 50 ML IV SCH ×2 (00:20→12:35)
[2021-11-05] MEDS: GUAIFENESIN/CODEINE 5 ML LIQD PO PRN ×3 (01:21→13:37)
[2021-11-05 02:29] LABS: BASOPHILS # (AUTO) 0.1 (0.0-0.1); EOSINOPHILS # (AUTO) 0.5 (0.0-0.4); EOSINOPHILS % 4.9 % (0.0-6.0); HEMATOCRIT 32.5 % (34.2-44.1); HEMOGLOBIN 10.5 g/dL (12.0-16.0); LYMPHOCYTES # (AUTO) 1.1 (1.0-3.2); LYMPHOCYTES % 11.6 % (18.0-39.1); MEAN CORPUSCULAR HEMOGLOBIN 28.2 pg (28-32); MEAN CORPUSCULAR HGB CONC 32.3 g/dL (31-35); MEAN CORPUSCULAR VOLUME 87.4 fL (81-99); MONOCYTES % 10.8 % (4.4-11.3); NEUTROPHILS # (AUTO) 6.7 (2.1-6.9); NEUTROPHILS % 71.2 % (38.7-80.0); PLATELET COUNT 189 x10e3/uL (140-360); RED BLOOD COUNT 3.72 x10e6/uL (3.6-5.1); RED CELL DISTRIBUTION WIDTH 19.2 % (11.7-14.4)
[2021-11-05 02:47] LABS: ALBUMIN 3.8 g/dL (3.5-5.0); ALBUMIN/GLOBULIN RATIO 0.7 (0.8-2.0); CALCIUM 10.2 mg/dL (8.4-10.2); CREATININE, SERUM 4.85 mg/dL (0.57-1.11)
[2021-11-05] MEDS: AMLODIPINE BESYLATE 10 MG TAB PO SCH ×2 (08:11→18:02)
[2021-11-05] MEDS: METOPROLOL SUCCINATE 50 MG TAB XL PO SCH ×2 (08:11→18:02)
[2021-11-05] MEDS: ASPIRIN 81 MG CHEW TAB PO SCH (08:11)
[2021-11-05] MEDS: ATORVASTATIN 40 MG TAB PO SCH (08:11)
[2021-11-05] MEDS: FAMOTIDINE 20 MG/2 ML VIAL IV SCH (08:11)
[2021-11-05] MEDS: CLOPIDOGREL BISULFATE 75 MG TAB PO SCH (08:11)
[2021-11-05] MEDS: CINACALCET 30 MG TAB PO SCH (08:11)
[2021-11-06] VITALS (34 sets, daily range): BP systolic 80–145; BP diastolic 47–106
[2021-11-06] MEDS: MEROPENEM 500 MG in SODIUM CHLORIDE 0.9% 50ML 50 ML IV SCH ×2 (01:11→13:34)
[2021-11-06 05:12] LABS: BASOPHILS # (AUTO) 0.1 (0.0-0.1); EOSINOPHILS # (AUTO) 0.8 (0.0-0.4); EOSINOPHILS % 7.7 % (0.0-6.0); HEMATOCRIT 30.1 % (34.2-44.1); HEMOGLOBIN 9.6 g/dL (12.0-16.0); LYMPHOCYTES # (AUTO) 1.5 (1.0-3.2); LYMPHOCYTES % 13.3 % (18.0-39.1); MEAN CORPUSCULAR HEMOGLOBIN 28.5 pg (28-32); MEAN CORPUSCULAR HGB CONC 31.9 g/dL (31-35); MEAN CORPUSCULAR VOLUME 89.3 fL (81-99); MONOCYTES # (AUTO) 1.4 (0.2-0.8); MONOCYTES % 12.9 % (4.4-11.3); NEUTROPHILS % 64.5 % (38.7-80.0); PLATELET COUNT 167 x10e3/uL (140-360); RED BLOOD COUNT 3.37 x10e6/uL (3.6-5.1); RED CELL DISTRIBUTION WIDTH 19.8 % (11.7-14.4)
[2021-11-06 05:20] LABS: INR 1.11; PROTHROMBIN TIME 15.1 seconds (11.9-14.5)
[2021-11-06 05:21] LABS: PARTIAL THROMBOPLASTIN TIME 31.3 seconds (23.8-35.5)
[2021-11-06 05:56] LABS: ALBUMIN 3.5 g/dL (3.5-5.0); ALBUMIN/GLOBULIN RATIO 0.6 (0.8-2.0); ANION GAP 23.5 mmol/L (8-16); CHOL/HDL RATIO 6.3 (3.0-3.6); CREATININE, SERUM 7.75 mg/dL (0.57-1.11); POTASSIUM 4.5 mmol/L (3.5-5.1)
[2021-11-06] MEDS ORDERED: SODIUM CHLORIDE 0.9% 1000ML 2,000 ML ONE (08:51)
[2021-11-06] MEDS: FAMOTIDINE 20 MG/2 ML VIAL IV SCH (10:46)
[2021-11-06] MEDS: CINACALCET 30 MG TAB PO SCH (10:46)
[2021-11-06] MEDS: ATORVASTATIN 40 MG TAB PO SCH (10:46)
[2021-11-06] MEDS: CLOPIDOGREL BISULFATE 75 MG TAB PO SCH (10:46)
[2021-11-06] MEDS: ASPIRIN 81 MG CHEW TAB PO SCH (10:46)
[2021-11-06] MEDS: HYDROCODONE/APAP 5MG-325MG TAB PO PRN ×3 (10:51→18:22)
[2021-11-06] MEDS ORDERED: ACETAMINOPHEN 325 MG TAB PO PRN (11:00)
[2021-11-06] MEDS ORDERED: HEPARIN SOD (PORCINE) 1000 UNIT/ML 30ML ONE (13:38)
[2021-11-06] MEDS ORDERED: SODIUM CHLORIDE 0.9% 1000ML 1,000 ML ONE (13:39)
[2021-11-06] MEDS ORDERED: NITROGLYCERIN/D5W 200 MCG/ML 250 ML ONE (13:39)
[2021-11-06] MEDS ORDERED: FENTANYL CITRATE/PF 100MCG/2 ML INJ ONE (13:39)
[2021-11-06] MEDS ORDERED: LIDOCAINE HCL 2% LOCAL 20 ML VIAL ONE (13:39)
[2021-11-06] MEDS ORDERED: IOPAMIDOL 370 MG/ML 200 ML INFUS..BTL INJ ONE (13:39)
[2021-11-06] MEDS ORDERED: MIDAZOLAM HCL 2 MG/2 ML VIAL ONE (13:39)
[2021-11-06] MEDS ORDERED: HEPARIN SOD/SOD CHLORIDE 2,000 ML ONE (13:39)
[2021-11-06] MEDS ORDERED: METOPROLOL SUCCINATE 25 MG TAB XL PO SCH (17:00)
[2021-11-06 17:19] LABS: BASOPHILS # (AUTO) 0.2 (0.0-0.1); BASOPHILS % 0.9 % (0.0-1.0); EOSINOPHILS # (AUTO) 0.8 (0.0-0.4); EOSINOPHILS % 4.9 % (0.0-6.0); LYMPHOCYTES # (AUTO) 1.6 (1.0-3.2); MEAN CORPUSCULAR HGB CONC 31.3 g/dL (31-35); MEAN CORPUSCULAR VOLUME 92.8 fL (81-99); MONOCYTES # (AUTO) 1.7 (0.2-0.8); MONOCYTES % 10.7 % (4.4-11.3); NEUTROPHILS # (AUTO) 11.7 (2.1-6.9); NEUTROPHILS % 72.9 % (38.7-80.0); PLATELET COUNT 180 x10e3/uL (140-360); RED BLOOD COUNT 3.45 x10e6/uL (3.6-5.1)
[2021-11-06] MEDS: METOPROLOL TARTRATE INJ 1 MG/ML VIAL IV PRN (21:43)
[2021-11-06] MEDS ORDERED: ADENOSINE 6 MG/2 ML VIAL IV ONE ×2 (22:15→22:30)
[2021-11-06] MEDS: GUAIFENESIN/CODEINE 5 ML LIQD PO PRN (22:26)
[2021-11-07] VITALS (35 sets, daily range): BP systolic 85–147; BP diastolic 35–106
[2021-11-07] MEDS: MEROPENEM 500 MG in SODIUM CHLORIDE 0.9% 50ML 50 ML IV SCH ×2 (00:36→12:59)
[2021-11-07] MEDS ORDERED: HEPARIN SOD (PORCINE) 5,000 UNIT/ML VIAL IV ONE (07:45)
[2021-11-07 08:03] LABS: BASOPHILS # (AUTO) 0.1 (0.0-0.1); EOSINOPHILS # (AUTO) 1.1 (0.0-0.4); EOSINOPHILS % 7.6 % (0.0-6.0); HEMATOCRIT 27.8 % (34.2-44.1); HEMOGLOBIN 8.8 g/dL (12.0-16.0); LYMPHOCYTES # (AUTO) 1.6 (1.0-3.2); LYMPHOCYTES % 11.2 % (18.0-39.1); MEAN CORPUSCULAR HEMOGLOBIN 28.7 pg (28-32); MEAN CORPUSCULAR HGB CONC 31.7 g/dL (31-35); MEAN CORPUSCULAR VOLUME 90.6 fL (81-99); MONOCYTES # (AUTO) 2.1 (0.2-0.8); MONOCYTES % 15.3 % (4.4-11.3); NEUTROPHILS # (AUTO) 8.9 (2.1-6.9); NEUTROPHILS % 64.2 % (38.7-80.0); PLATELET COUNT 184 x10e3/uL (140-360); RED BLOOD COUNT 3.07 x10e6/uL (3.6-5.1); RED CELL DISTRIBUTION WIDTH 20.1 % (11.7-14.4)
[2021-11-07 08:23] LABS: CALCIUM 10.5 mg/dL (8.4-10.2); CREATININE, SERUM 4.98 mg/dL (0.57-1.11)
[2021-11-07 08:24] LABS: MAGNESIUM 2.3 MG/DL (1.3-2.1); PHOSPHORUS 4.9 MG/DL (2.3-4.7)
[2021-11-07] MEDS: ATORVASTATIN 40 MG TAB PO SCH (09:00)
[2021-11-07] MEDS: CLOPIDOGREL BISULFATE 75 MG TAB PO SCH (09:00)
[2021-11-07] MEDS: CINACALCET 30 MG TAB PO SCH (09:00)
[2021-11-07] MEDS: ASPIRIN 81 MG CHEW TAB PO SCH (09:00)
[2021-11-07] MEDS: FAMOTIDINE 20 MG/2 ML VIAL IV SCH (12:59)
[2021-11-07] MEDS ORDERED: SODIUM CHLORIDE 0.9% 100 ML ONE (13:40)
[2021-11-07] MEDS ORDERED: IOPAMIDOL 370 MG/ML 200 ML INFUS..BTL INJ ONE (13:41)
[2021-11-07] MEDS ORDERED: HEPARIN 25,000 UNIT DRIP IV ONE (14:52)
[2021-11-07] MEDS ORDERED: ADENOSINE 6MG/2ML 1 ML ONE (15:27)
[2021-11-07] MEDS ORDERED: AMIODARONE HCL 150 MG/100 ML BAG IV ONE (15:30)
[2021-11-07] MEDS ORDERED: ADENOSINE 6 MG/2 ML VIAL IV ONE ×2 (15:30→16:00)
[2021-11-07] MEDS: HEPARIN 25,000 UNIT 1,100 UNIT in DEXTROSE 5% 250ML 250 ML IV SCH ×2 (15:36→23:13)
[2021-11-07] MEDS ORDERED: AMIODARONE 900MG 500 ML IV SCH (16:00)
[2021-11-07] MEDS: METOPROLOL TARTRATE INJ 1 MG/ML VIAL IV PRN (19:32)
[2021-11-08] VITALS (18 sets, daily range): BP systolic 109–150; BP diastolic 57–110
[2021-11-08] MEDS: MEROPENEM 500 MG in SODIUM CHLORIDE 0.9% 50ML 50 ML IV SCH ×2 (00:11→12:24)
[2021-11-08] MEDS: METOPROLOL TARTRATE INJ 1 MG/ML VIAL IV PRN (03:42)
[2021-11-08] MEDS: HEPARIN 25,000 UNIT 1,100 UNIT in DEXTROSE 5% 250ML 250 ML IV SCH (06:25)
[2021-11-08 07:02] LABS: BASOPHILS # (AUTO) 0.2 (0.0-0.1); BASOPHILS % 1.1 % (0.0-1.0); EOSINOPHILS # (AUTO) 1.4 (0.0-0.4); EOSINOPHILS % 10.2 % (0.0-6.0); HEMATOCRIT 26.4 % (34.2-44.1); HEMOGLOBIN 8.5 g/dL (12.0-16.0); LYMPHOCYTES % 14.3 % (18.0-39.1); MEAN CORPUSCULAR HEMOGLOBIN 28.9 pg (28-32); MEAN CORPUSCULAR HGB CONC 32.2 g/dL (31-35); MEAN CORPUSCULAR VOLUME 89.8 fL (81-99); MONOCYTES # (AUTO) 2.1 (0.2-0.8); NEUTROPHILS # (AUTO) 8.2 (2.1-6.9); NEUTROPHILS % 58.7 % (38.7-80.0); PLATELET COUNT 219 x10e3/uL (140-360); RED BLOOD COUNT 2.94 x10e6/uL (3.6-5.1); RED CELL DISTRIBUTION WIDTH 19.9 % (11.7-14.4)
[2021-11-08 07:23] LABS: ANION GAP 23.1 mmol/L (8-16); CALCIUM 10.1 mg/dL (8.4-10.2); CREATININE, SERUM 6.95 mg/dL (0.57-1.11); POTASSIUM 5.1 mmol/L (3.5-5.1)
[2021-11-08] MEDS: FAMOTIDINE 20 MG/2 ML VIAL IV SCH (08:54)
[2021-11-08] MEDS: CINACALCET 30 MG TAB PO SCH (09:00)
[2021-11-08] MEDS: CLOPIDOGREL BISULFATE 75 MG TAB PO SCH (09:00)
[2021-11-08] MEDS: ASPIRIN 81 MG CHEW TAB PO SCH (09:00)
[2021-11-08] MEDS: ATORVASTATIN 40 MG TAB PO SCH (09:00)
== END 2021-11-08 15:26 | disposition short-term general hospital (02) | DRG 280 ==
LOC: ER 13:22 → ERHOLD 13:54 → ICU 19:39 → OBSVTOIN 11-01 08:07
PROVIDERS: ADMIT Internal Medicine; ATTEND Internal Medicine
PROC: 5A1D70Z Performance of Urinary Filtration, Intermittent, Less than 6 Hours Per Day (ICD-10-PCS; principal; 2021-10-31)
PROC: 5A09357 Assistance with Respiratory Ventilation, Less than 24 Consecutive Hours, Continuous Positive Airway Pressure (ICD-10-PCS; 2021-10-31)
PROC: 0BH18EZ Insertion of Endotracheal Airway into Trachea, Via Natural or Artificial Opening Endoscopic (ICD-10-PCS; 2021-11-01)
PROC: 5A1945Z Respiratory Ventilation, 24-96 Consecutive Hours (ICD-10-PCS; 2021-11-01)
PROC: 4A023N7 Measurement of Cardiac Sampling and Pressure, Left Heart, Percutaneous Approach (ICD-10-PCS; 2021-11-06)
PROC: B2111ZZ Fluoroscopy of Multiple Coronary Arteries using Low Osmolar Contrast (ICD-10-PCS; 2021-11-06)
PROC: B2151ZZ Fluoroscopy of Left Heart using Low Osmolar Contrast (ICD-10-PCS; 2021-11-06)
PROC: 4A033BC Measurement of Arterial Pressure, Coronary, Percutaneous Approach (ICD-10-PCS; 2021-11-06)
PROC: 02HV33Z Insertion of Infusion Device into Superior Vena Cava, Percutaneous Approach (ICD-10-PCS; 2021-11-07)
DX: I13.2 Hypertensive heart and chronic kidney disease with heart failure and with stage 5 chronic kidney disease, or end stage renal disease (principal); N18.6 End stage renal disease; I21.4 Non-ST elevation (NSTEMI) myocardial infarction; J96.01 Acute respiratory failure with hypoxia; G93.41 Metabolic encephalopathy; J81.0 Acute pulmonary edema; I63.89 Other cerebral infarction; I50.23 Acute on chronic systolic (congestive) heart failure; N25.81 Secondary hyperparathyroidism of renal origin; I16.1 Hypertensive emergency; G81.94 Hemiplegia, unspecified affecting left nondominant side; N99.840 Postprocedural hematoma of a genitourinary system organ or structure following a genitourinary system procedure; I47.1 Supraventricular tachycardia; Z99.2 Dependence on renal dialysis; I25.2 Old myocardial infarction; I25.10 Atherosclerotic heart disease of native coronary artery without angina pectoris; Z95.5 Presence of coronary angioplasty implant and graft; E66.01 Morbid (severe) obesity due to excess calories; Z68.36 Body mass index [BMI] 36.0-36.9, adult; D63.1 Anemia in chronic kidney disease; I34.0 Nonrheumatic mitral (valve) insufficiency; D50.0 Iron deficiency anemia secondary to blood loss (chronic); D69.6 Thrombocytopenia, unspecified; Z20.822 Contact with and (suspected) exposure to COVID-19; Y84.6 Urinary catheterization as the cause of abnormal reaction of the patient, or of later complication, without mention of misadventure at the time of the procedure; Y73.1 Therapeutic (nonsurgical) and rehabilitative gastroenterology and urology devices associated with adverse incidents; Z78.1 Physical restraint status
CPT/HCPCS: 31500; 36415; 36600; 70450; 70496; 70498; 70551; 71045; 71250; 74018; 74230; 76700; 80048; 80053; 80061; 82550; 82553; 82805; 82948; 83036; 83735; 83880; 84100; 84484; 85025; 85610; 85730; 86704; 86706; 87040; 87070; 87205; 87340; 90962; 93005; 93306; 93454; 93571; 94799; 97139; 99152; 99153; 99251; 99284; C1760; C1769; C1887; G0378; J0153; J0330; J0360; J1644; J1940; J2001; J2060; J2185; J2250; J3010; J3370; J3486; J7030; J7050; J7070; P9047; Q9967; U0002